=== PATIENT | male | born 1930 | race Caucasian/White ===

== ENCOUNTER 2018-03-05 11:23 | Observation (INO) | payer MEDICARE, BC ==
[~2018-03-05] VITALS: Ht 185.4 cm; Wt 124.4 kg
[~2018-03-05 11:23] MED LIST: ASA81 MG PO; AZOPT10 ML; COMBIGAN EYE DR10 ML OP; FUROSEMIDE40 MG PO; KOMBIGLYZE XR1 EAC2 PO; LEVAQUIN500 MG PO; LOSARTAN POTASS50 MG PO; OMEPRAZOLE40 MG PO; PROVENTIL HFA6.7 GM IH; SUCRALFATE1 GM PO; TRAVATAN 0.004%5 ML OP; XARELTO15 MG PO; Z.0.INDAPAMIDE1.25 M PO; Z.0.METFORMIN HCL500; Z.0.METOPROLOL SUCC2; Z.0.SIMVASTATIN40 MG PO; [UNRECOGNIZED DRUG - OTHER] PO
[2018-03-05 12:16] LABS: INR 2.17; PARTIAL THROMBOPLASTIN TIME 34.4 seconds (23.8-35.5); PROTHROMBIN TIME 22.7 seconds (11.9-14.5)
[2018-03-05 12:23] LABS: ALBUMIN 3.4 g/dL (3.5-5.0); ALBUMIN/GLOBULIN RATIO 0.9 (0.8-2.0); ANION GAP 12.7 mmol/L (8-16); CALCIUM 9.6 mg/dL (8.4-10.2); CREATININE, SERUM 1.8 mg/dL (0.72-1.25); POTASSIUM 3.7 mmol/L (3.5-5.1)
--- NOTE | 2018-03-05 12:23 | Diagnostic Imaging Report ---
EXAMINATION: Chest, CHEST SINGLE (PORTABLE) INDICATION: Chest pain COMPARISON: Portable chest 11/07/2014 FINDINGS: LINES: None. Heart: Normal cardiac silhouette. Vascular: The pulmonary vasculature is within normal limits. Mediastinum: No mediastinal, hilar, or axillary mass or lymphadenopathy. Lungs: No parenchymal mass. No focal consolidation. Pleura: No pleural effusion. No pneumothorax. Bones: No acute osseous abnormality. Degenerative changes of the thoracic spine. Median sternotomy wires. Soft tissues: Normal. Impression: No acute radiographic abnormality. Signed by: Dr. Jaime Richmond M.D. on 03/05/2018 12:19 PM
[2018-03-05] MEDS ORDERED: ASPIRIN 81 MG CHEW TAB PO PRN (12:30)
--- NOTE | 2018-03-05 12:36 | Diagnostic Imaging Report ---
History:Dizziness, slured speech Comparison studies:CT head 03/22/13 Technique: Axial images were obtained from the skull base to the vertex. Coronal and sagittal images reconstructed from the axial data. Intravenous contrast: None Findings: Scalp/skull: No abnormalities. Extra-axial spaces: No masses. No fluid collections. Brain sulci: Mildly prominent. Ventricles: Mild compensatory dilatation. No hydrocephalus. Parenchyma: Describe hypodensities in the supratentorial white matter are small vessel ischemic changes. No masses, hemorrhage, acute or chronic cortical vascular insults. Sellar/suprasellar region: No abnormalities. Craniocervical junction: Patent foramen magnum. No Chiari one malformation. Incidental findings: Atherosclerotic calcifications in the carotid siphons and vertebrals . Impression: No acute abnormalities. Chronic findings: 1. Mild generalized volume loss. 2. Moderate supratentorial white matter small vessel ischemic changes. Signed by: DR Brien Paula M.D. on 03/05/2018 12:32 PM
[2018-03-05 12:43] LABS: CREATINE KINASE MB 1.9 ng/mL (0-5.0); THYROID STIMULATING HORMONE 2.23 uIU/mL (0.350-4.940)
[2018-03-05 12:48] LABS: BILIRUBIN,URINE NEGATIVE (NEGATIVE); CLARITY,URINE CLEAR (CLEAR); COLOR,URINE YELLOW (YELLOW); KETONES,URINE NEGATIVE (NEGATIVE); LEUKOCYTE ESTERASE ,URINE NEGATIVE (NEGATIVE); NITRITE,URINE NEGATIVE (NEGATIVE); PROTEIN,URINE DIPSTICK NEGATIVE (NEGATIVE); URINE UROBILINOGEN 0.2 mg/dL (0.2 - 1)
[2018-03-05 13:02] LABS: BACTERIA,URINE FEW /HPF; EPITHELIAL CELLS,URINE FEW /LPF; RBC,URINE 0-5 /HPF (0-5); WBC,URINE (MAN) 0-5 /HPF (0-5)
[2018-03-05 13:30] LABS: BASOPHILS % 0.4 % (0.0-1.0); EOSINOPHILS # (AUTO) 0.3 (0.0-0.4); EOSINOPHILS % 3.3 % (0.0-6.0); HEMATOCRIT 39.6 % (38.2-49.6); HEMOGLOBIN 13.5 g/dL (14.0-18.0); LYMPHOCYTES # (AUTO) 1.9 (1.0-3.2); LYMPHOCYTES % 24.6 % (18.0-39.1); MEAN CORPUSCULAR HEMOGLOBIN 29.3 pg (28-32); MEAN CORPUSCULAR HGB CONC 34.1 g/dL (31-35); MEAN CORPUSCULAR VOLUME 85.9 fL (81-99); MONOCYTES % 13.1 % (4.4-11.3); NEUTROPHILS # (AUTO) 4.6 (2.1-6.9); NEUTROPHILS % 58.5 % (38.7-80.0); PLATELET COUNT 146 x10e3/uL (140-360); RED BLOOD COUNT 4.61 x10e6/uL (4.3-5.7); RED CELL DISTRIBUTION WIDTH 14.3 % (11.7-14.4)
[2018-03-05] MEDS ORDERED: SODIUM CHLORIDE 0.9% 500ML 500 ML IV ONE (14:00)
[2018-03-05] MEDS ORDERED: ALBUTEROL SULF 0.083% NEB SOLN 3 ML NEB NEB ONE (14:00)
[2018-03-05] MEDS ORDERED: IPRATROPIUM BROMIDE 0.02% 2.5 ML NEB NEB ONE (14:00)
[2018-03-05] MEDS ORDERED: ACETAMINOPHEN 325 MG TAB PO PRN (14:15)
[2018-03-05] MEDS ORDERED: ONDANSETRON HCL 4 MG ORAL DISINTEGRATING TAB PO PRN (14:15)
[2018-03-05] MEDS ORDERED: ALBUTEROL/IPRATROPIUM 3 ML NEB NEB PRN (14:15)
[2018-03-05] MEDS ORDERED: DEXTROSE 50% SYRINGE 50 ML IV PRN (14:15)
[2018-03-05] MEDS ORDERED: ALBUTEROL SULF 0.083% NEB SOLN 3 ML NEB NEB PRN (14:15)
[2018-03-05] MEDS: FAMOTIDINE 20 MG/2 ML VIAL IV SCH (14:44)
--- OUTSIDE RECORDS SUMMARY | 2018-03-05 14:51 | XMS REPORT ---
Author Author [facility] Address Unknown Phone Unavailable Care Team Providers Care Supervisor Pipelines Name Role Phone DORIS BENDER Unavailable Unavailable Problems This patient has no known problems. Allergies, Adverse Reactions, Alerts This patient has no known allergies or adverse reactions. Medications This patient has no known medications. Results Test Description Test Time Test Comments Text Results Atomic Results Result Comments CHEST SINGLE (PORTABLE) [place] [address] Patient Name: NOMAN EPPERSON MR #: [id number] : 1930 Age/Sex: 87/M Req #: [id number] Adm Physician: Ordered by: IVONNE GARCÍA DRAW[employer] Report #: [id number] Location: ER Room/Bed: Procedure: [id number] DX/CHEST SINGLE (PORTABLE) Exam Date: 03/05/18 Exam Time: 1200 REPORT STATUS: Signed EXAMINATION: Chest, CHEST SINGLE (PORTABLE) INDICATION: Chest pain COMPARISON : Portable chest 11/07/2014 FINDINGS: LINES: None. Heart : Normal cardiac silhouette. Vascular: The pulmonary vasculature is within normal limits. Mediastinum: No mediastinal, hilar, or axillary mass or lymphadenopathy. Lungs: No parenchymal mass. No focal consolidation. Pleura: No pleural effusion. No pneumothorax. Bones: No acute osseous abnormality. Degenerative changes of the thoracic spine. Median sternotomy wires. Soft tissues: Normal. Impression: No acute radiographic abnormality. Signed by: Dr. Roman Dominguez M.D. on 2017 12:19 PM Dictated By: ROMAN DOMINGUEZ MD 18 Transcribed By: MICHELLE on 03/05/181218 COPY TO: IVONNE GARCÍA NP CT BRAIN WO [place] [address] Patient Name: NOMAN EPPERSON MR #: [id number] : 1930 Age/Sex: 87/M Req #: [id number] Adm Physician: Ordered by: IVONNE GARCÍA NP Report #: [id number] Location: ER Room/Bed: Procedure: [id number] CT/CT BRAIN WO Exam Date: 03/05/18 Exam Time: 1158 REPORT STATUS: Signed History:Dizziness, slured speech Comparison studies:CT head 03/22/13 Technique: Axial images were obtained from the skull base to the vertex. Coronal and sagittal images reconstructed from the axial data. Intravenous contrast: None Findings: Scalp/skull: No abnormalities. Extra-axial spaces: No masses. No fluid collections. Brain sulci: Mildly prominent. Ventricles: Mild compensatory dilatation. No hydrocephalus. Parenchyma: Describe hypodensities in the supratentorial white matter are small vessel ischemic changes. No masses, hemorrhage, acute or chronic cortical vascular insults. Sellar/ suprasellar region: No abnormalities. Craniocervical junction: Patent foramen magnum. No Chiari one malformation. Incidental findings: Atherosclerotic calcifications in the carotid siphons and vertebrals . Impression: No acute abnormalities. Chronic findings: 1. Mild generalized volume loss. 2. Moderate supratentorial white matter small vessel ischemic changes. Signed by: DR Brien Paula M.D. on 2017 12:32 PM Dictated By: BRIEN HILL MD 1232 Transcribed By: MICHELLE on 03/05/18 1232 COPY TO: IVONNE GARCÍA NP
[2018-03-05] MEDS ORDERED: BRINZOLAMIDE 1% OPTH SUSP 10 ML BTL OP SCH (17:00)
[2018-03-05] MEDS ORDERED: BRIMONIDINE/TIMOLOL (OPTH SOLN 5 ML DRPETTE OP SCH (17:00)
[2018-03-05] MEDS: INSULIN REGULAR, HUMAN 100 UNIT/1 ML 3ML VIAL SQ SCH ×2 (17:06→21:31)
--- NOTE | 2018-03-05 17:21 | History and Physical ---
CLINICAL HISTORY: This is an 87-year-old white man seen in the emergency room at [facility] because of dizziness and slurring of speech. This patient has multiple medical problems and is known to our service from previous evaluations by Dr. Freddie Vale. He is known to have coronary artery disease, diabetes, glaucoma and hypertension. He is status post coronary artery bypass surgery. He was seen in 2014 because of chest pains but elected to be discharged to follow further on outpatient basis. There is history of atrial fibrillation. He was at [employer] today when he sat down. He started having burning in his eyes, left greater than right. He got up and felt dizzy, spinning sensation. Lasted for 5 minutes. He had trouble talking but says he did not have the wrong words come out of his mouth. He felt better but was brought to the emergency room where he was evaluated by the emergency room physician and admitted. Workup thus far has been unrevealing with a CT scan of the head being negative. Chest x-ray was negative. Electrolytes were normal. BUN was 33, creatinine 1.8, albumin 3.4, BNP 282. Urinalysis showed 1+ glucose. INR was 2.1. Earlier in the week, he apparently had some shortness of breath. He was seen by Dr. Vale on 02/22/2018. 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 FAMILY HISTORY: Father at 67 post amputation, peripheral vascular disease and had myocardial infarction. Brother had Wilms tumor. PERSONAL AND SOCIAL HISTORY: Denies drinking, smoking. ALLERGIES: NONE KNOWN. REVIEW OF SYSTEMS: Noncontributory. PHYSICAL EXAMINATION: He is elderly, alert, coherent, appears to be comfortable, in no acute distress. CARDIAC: Jugular veins were not distended. S1 and S2 were regular. There was a 2/6 systolic murmur. LUNGS: Clear. ABDOMEN: Soft. Bowel sounds are present. EXTREMITIES: No cyanosis, clubbing or edema. IMPRESSION 1. Dizziness upon standing with vertigo. Rule out orthostatic hypotension. Rule out inner ear disease as well as posterior cerebellar issues. 2. History of atrial fibrillation. 3. History of coronary artery disease, status post coronary artery bypass surgery in 2007. 4. Hypertension. 5. Diabetes. 6. Glaucoma. 7. History of coronary stenting. 8. History of indigestion. 9. Multiple eyedrops. RECOMMENDATIONS: Monitoring. Check orthostatic vital signs. Withhold diuretics for the time being. Neurology consultation. CT scan or MRI scan as needed. Job#: [id number]
[2018-03-05 17:47] VITALS: BP 139/61
[2018-03-05] MEDS: RIVAROXABAN 15 MG TABLET PO SCH (18:11)
[2018-03-05 18:32] VITALS: BP 139/61
[2018-03-05] MEDS ORDERED: CO Q-10100 MG PO (18:39)
[2018-03-05] MEDS ORDERED: NITROSTAT0.4 MG SL (18:39)
[2018-03-05] MEDS ORDERED: NITROSTAT0.6 MG (18:39)
[2018-03-05] MEDS ORDERED: TAMSULOSIN HCL0.4 MG PO (18:39)
[2018-03-05 20:00] VITALS: BP 122/62
[2018-03-05 22:53] VITALS: BP 122/62
[2018-03-06] VITALS (11 sets, daily range): BP systolic 93–158; BP diastolic 51–75
[2018-03-06 00:50] LABS: CREATINE KINASE MB 1.8 ng/mL (0-5.0)
[2018-03-06] MEDS: FAMOTIDINE 20 MG/2 ML VIAL IV SCH (06:05)
[2018-03-06 07:24] LABS: BASOPHILS % 0.5 % (0.0-1.0); EOSINOPHILS # (AUTO) 0.3 (0.0-0.4); EOSINOPHILS % 4.8 % (0.0-6.0); HEMATOCRIT 38.7 % (38.2-49.6); LYMPHOCYTES # (AUTO) 1.7 (1.0-3.2); LYMPHOCYTES % 27.3 % (18.0-39.1); MEAN CORPUSCULAR HGB CONC 33.6 g/dL (31-35); MEAN CORPUSCULAR VOLUME 86.4 fL (81-99); MONOCYTES # (AUTO) 0.8 (0.2-0.8); MONOCYTES % 12.4 % (4.4-11.3); NEUTROPHILS # (AUTO) 3.4 (2.1-6.9); NEUTROPHILS % 54.5 % (38.7-80.0); PLATELET COUNT 137 x10e3/uL (140-360); RED BLOOD COUNT 4.48 x10e6/uL (4.3-5.7); RED CELL DISTRIBUTION WIDTH 14.3 % (11.7-14.4)
[2018-03-06] MEDS: INSULIN REGULAR, HUMAN 100 UNIT/1 ML 3ML VIAL SQ SCH ×4 (07:30→21:00)
[2018-03-06 07:49] LABS: CREATINE KINASE MB 1.5 ng/mL (0-5.0)
[2018-03-06 08:10] LABS: ALBUMIN/GLOBULIN RATIO 0.9 (0.8-2.0); ANION GAP 12.3 mmol/L (8-16); CALCIUM 9.1 mg/dL (8.4-10.2); CHOL/HDL RATIO 3.3 (3.9-4.7); CREATININE, SERUM 1.57 mg/dL (0.72-1.25); POTASSIUM 4.3 mmol/L (3.5-5.1)
[2018-03-06] MEDS ORDERED: SIMVASTATIN 40 MG TAB PO SCH ×2 (09:00→21:00)
[2018-03-06] MEDS ORDERED: TRAVOPROST(OPTH) 2.5 ML BTL OP SCH ×2 (09:00→21:00)
[2018-03-06] MEDS: BRINZOLAMIDE 1% OPTH SUSP 10 ML BTL OP SCH ×2 (09:52→21:00)
[2018-03-06] MEDS: BRIMONIDINE/TIMOLOL (OPTH SOLN 5 ML DRPETTE OP SCH ×2 (09:53→21:00)
--- NOTE | 2018-03-06 14:45 | Diagnostic Imaging Report ---
Examination: MRA HEAD WITHOUT CONTRAST History: TIA. Weakness. Dizziness. Comparison studies: None Technique: 3-D [id number] MR angiogram of the intracranial circulation was obtained. MIP images of the arteries were isolated into anterior and posterior intracranial circulations, 180 degree projections. Sagittal and coronal MPR images, and axial source images are available for evaluation. Findings: Internal carotid arteries: Patent. Anterior cerebral arteries: Patent A1 segments. Middle cerebral arteries: Patent M1 segment. Vertebrobasilar circulation: Patent. Posterior cerebral arteries: Patent bilateral 1 and P2 segments. Anatomical variants: Anterior communicating arteries: Patent. Posterior communicating arteries: Patent on the right. Hypoplastic or absent on the left. Vertebral arteries:Codominant. IMPRESSION: No intracranial arterial stenosis or occlusion or vascular malformation. Signed by: Dr. Sandra Bauer M.D. on 03/06/2018 2:41 PM
[2018-03-06] MEDS ORDERED: JANUMET 50-1,01 EACH PO (15:17)
--- NOTE | 2018-03-06 15:22 | Diagnostic Imaging Report ---
Examination: MRI BRAIN WITHOUT CONTRAST History: TIA. Weakness. Dizziness. Comparison studies: Head CT performed March 05, 2018. Technique: Sagittal T2; axial DWI, FLAIR, GRE or SWI, T1, Coronal FLAIR. Intravenous contrast: None Findings: Motion artifact limits and poor image quality evaluation. Scalp: No abnormal signal. No masses. Bone marrow: Normal in signal intensity. Brain volume: Mild volume loss. Ventricles: No hydrocephalus. Extra-axial spaces: No abnormalities. Parenchyma: There are patchy and confluent areas of T2/FLAIR hyperintensity in the periventricular and subcortical white matter, nonspecific. No masses, hemorrhage, or acute vascular insults. Suprasellar and sellar region: No abnormalities. Craniocervical junction: No abnormalities. The foramen magnum is patent. No Chiari malformations. Vessels: Normal flow-voids in the arteries and sinuses. IMPRESSION: 1. Despite limitation, no acute intracranial abnormalities. 2. Moderate chronic microvascular ischemic change. 3. Mild volume loss. Signed by: Dr. Sandra Bauer M.D. on 03/06/2018 3:19 PM
[2018-03-06] MEDS ORDERED: NITROGLYCERIN 0.4 MG SUBL SL SCH (15:30)
[2018-03-06] MEDS ORDERED: INDAPAMIDE 1.25 MG PO SCH (16:00)
[2018-03-06] MEDS ORDERED: MULTIVIT PO SCH (16:00)
[2018-03-06] MEDS ORDERED: NON-FORMULARY MEDICATION (Sitagliptin Phos/Metformin Hcl (Janumet 50-1,000 Mg Tablet) 1 TA PO SCH (16:00)
[2018-03-06] MEDS ORDERED: NON-FORMULARY MEDICATION (Losartan Potassium 50 MG) PO SCH (16:00)
[2018-03-06] MEDS ORDERED: IRON PO SCH (16:00)
[2018-03-06] MEDS ORDERED: [UNRECOGNIZED DRUG - OTHER] PO SCH (16:00)
[2018-03-06] MEDS: FAMOTIDINE 20 MG TAB PO SCH (16:49)
[2018-03-06] MEDS: RIVAROXABAN 15 MG TABLET PO SCH (16:50)
[2018-03-06] MEDS: INDAPAMIDE 2.5 MG TAB PO SCH (17:00)
[2018-03-06] MEDS: LOSARTAN POTASSIUM 25 MG TAB PO SCH (17:06)
--- NOTE | 2018-03-06 17:19 | Consultation ---
DATE OF CONSULTATION: March 06, 2018, at 4 o'clock in the evening. NEUROLOGICAL CONSULTATION ATTENDING PHYSICIAN: Freddie Vale MD REASON FOR CONSULTATION: Syncopal spell. This is an 87-year-old male who apparently was in [place] when he started feeling a little weak. Then he stood up and felt weak, dizzy and clammy. They went to a room, and they checked his blood pressure. Apparently, it was 130/80. Apparently, he was having a little trouble with his speech. He denies any headache. Denies any visual disturbance. No chest pain. No palpitations. No focal paresthesia. No focal weakness. The patient denies any previous episodes like this in the past. PAST HISTORY: Hypertension, diabetes mellitus, coronary artery disease, atrial fibrillation, glaucoma. HOME MEDICATIONS 1. Timolol drops. 2. Furosemide 40 mg a day. 3. Losartan. 4. Potassium 15 one tablet daily. 5. Nitroglycerin. 6. Simvastatin 40 mg. 7. Flomax. ALLERGIES: NONE KNOWN. SOCIAL HISTORY: He never smoked. He never drank. FAMILY HISTORY: Vascular disease. Coronary disease. SURGERIES: He had 4 coronary bypass 8 years ago, squamous cell carcinoma and appendectomy. REVIEW OF SYSTEMS: All 12 steps negative except for what is described above. GENERAL PHYSICAL EXAMINATION VITAL SIGNS: Blood pressure 136/75, pulse 50, temperature 95.9. LUNGS: Clear to auscultation. HEART: Regular sinus rhythm. No murmur. ABDOMEN: Soft and nontender. No organomegaly. MUSCULOSKELETAL: Lower extremities have no edema, no cyanosis, no clubbing. NEUROLOGIC EXAMINATION: He is alert and oriented times 3. Speech is clear. No dysarthria or dysphagia. CRANIAL NERVES: Pupils are both equal and reactive. The extraocular movements are full. Visual salgado were normal. No facial weakness. Tongue protrudes in the midline. MOTOR POWER: Both upper extremities have no evidence of focal weakness in either proximal or distal muscles. DEEP TENDON REFLEXES: Triceps, biceps and radials are 1+, knee jerks 1+, ankle jerks absent bilaterally. Plantar stimulation is down bilaterally. COORDINATION: [id number] is normal. HEAD: Normocephalic. NECK: Supple. Carotid pulsations are present bilaterally. There are no bruits. GAIT: He has been walking with physical therapy. There is no evidence to suspect positional dizziness. LABS: CBC is all normal. Platelets are normal. Chemistry: Sodium, potassium and chloride are normal. BUN is 28, high. Creatinine is 1.57. Estimated GFR is 42. Glucose 146. Liver enzymes are all normal. Urinalysis is negative. MRI of the brain shows no acute pathology. No acute ischemia or hemorrhagic lesion. Chronic small vessel disease is seen bilaterally. MRA of the head shows no evidence of blockage. Carotid Doppler shows no evidence of flow impairment. IMPRESSION 1. Episode of presyncope, possible vasovagal reaction. 2. Rule out orthostatic hypotension. 3. Coronary artery disease. 4. Hypertension. 5. Diabetes mellitus. 6. Coronary stenting. RECOMMENDATIONS: Orthostatic blood pressures 3 times a day. Continue ambulation with physical therapy. No evidence to suspect TIA, either anterior or posterior fossa TIA. No evidence of any blockage of the carotid system or intracranial circulation. We will follow. GLENNA ALEJO MD Job#: [id number]
[2018-03-06] MEDS ORDERED: LEVEMIR100 UNIT/1 SC (20:23)
[2018-03-06] MEDS ORDERED: INSULIN DETEMIR 100 UNIT/ML PEN SQ SCH (21:00)
[2018-03-06] MEDS: TAMSULOSIN HCL 0.4 MG CAP PO SCH (21:34)
[2018-03-07] VITALS (8 sets, daily range): BP systolic 96–131; BP diastolic 52–61
[2018-03-07] MEDS ORDERED: SITAGLIPTIN 100 MG TAB PO SCH (08:00)
[2018-03-07] MEDS ORDERED: METFORMIN HCL 500 MG TAB PO SCH (08:00)
[2018-03-07] MEDS: LOSARTAN POTASSIUM 25 MG TAB PO SCH (08:44)
[2018-03-07] MEDS: FAMOTIDINE 20 MG TAB PO SCH (08:44)
[2018-03-07] MEDS: TAMSULOSIN HCL 0.4 MG CAP PO SCH (08:44)
[2018-03-07] MEDS: INDAPAMIDE 2.5 MG TAB PO SCH (08:45)
[2018-03-07] MEDS: BRINZOLAMIDE 1% OPTH SUSP 10 ML BTL OP SCH (08:50)
[2018-03-07] MEDS: BRIMONIDINE/TIMOLOL (OPTH SOLN 5 ML DRPETTE OP SCH (08:51)
[2018-03-07] MEDS ORDERED: MULTIVITAMINS/MINERALS TAB PO SCH (09:00)
[2018-03-07] MEDS: INSULIN REGULAR, HUMAN 100 UNIT/1 ML 3ML VIAL SQ SCH (09:10)
--- NOTE | 2018-03-07 11:11 | Discharge Summary ---
Mr. 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 HOSPITAL COURSE: The patient's initial evaluation suggested possible dehydration, possible orthostasis, possible TIA. He had extensive workup including CT and MRI of brain, which were relatively unremarkable. He was monitored on telemetry for history of intermittent atrial fibrillation, and no significant pauses were found. His glucose was 142 to 176. Troponins were normal. His Xarelto had been erroneously reduced to 15 mg daily, and his furosemide was withheld. Today, the patient is comfortable and feeling better. He wears 2 hearing aids. His creatinine is 1.57. He is discharged to home to reduce his furosemide to 20 mg daily, to be sure to eat and drink adequately. He will resume his Xarelto 20 mg daily without aspirin supplementation as it is contraindicated. He will check home blood pressures and follow up with me in 2 weeks. He will see his other doctors on a regular basis. DISCHARGE DIAGNOSES 1. Vertigo, etiology not clear. 2. Hypertension. 3. Diabetes. 4. Coronary disease. 5. Aortic stenosis, moderately severe without symptoms. DANNI ANGEL MD Job#: [id number]
== END 2018-03-07 13:28 | disposition home or self-care (01) ==
LOC: ER 11:23 → ERHOLD 14:48 → INTOOBSV 14:48 → MED/SURG 17:14
PROVIDERS: ADMIT Internal Medicine Cardiovascular Disease; ATTEND Internal Medicine Cardiovascular Disease
DX: R42 Dizziness and giddiness (principal); I25.10 Atherosclerotic heart disease of native coronary artery without angina pectoris; E11.8 Type 2 diabetes mellitus with unspecified complications; I35.0 Nonrheumatic aortic (valve) stenosis; I10 Essential (primary) hypertension; I95.9 Hypotension, unspecified; Z79.01 Long term (current) use of anticoagulants; I48.91 Unspecified atrial fibrillation; R55 Syncope and collapse; Z95.1 Presence of aortocoronary bypass graft; Z95.5 Presence of coronary angioplasty implant and graft
CPT/HCPCS: 36415 ×3; 70450; 70544; 70551; 71045; 80053 ×2; 80061; 81001; 82550 ×2; 82553 ×2; 82948 ×3; 83735; 83880; 84443; 84484 ×2; 85025 ×2; 85610; 85730; 87086; 87400; 93005 ×2; 93306; 93880; 97139; 99284; G0378 ×3; J7040

== ENCOUNTER 2018-07-25 14:32 | Emergency (ER) | payer MEDICARE, BC ==
[~2018-07-25] VITALS: Ht 185.4 cm; Wt 99.8 kg
[~2018-07-25 14:32] MED LIST changes: +CO Q-10100 MG PO; +JANUMET 50-1,01 EACH PO; +LEVEMIR100 UNIT/1 SC; +NITROSTAT0.4 MG SL; +NITROSTAT0.6 MG; +TAMSULOSIN HCL0.4 MG PO
[2018-07-25] MEDS ORDERED: KETOROLAC TROMETHAMINE 30 MG/ML VIAL IM STA (14:53)
--- NOTE | 2018-07-25 15:35 | Diagnostic Imaging Report ---
Lumbar Spine Radiographs: 3 views HISTORY: Fell, lower back pain COMPARISON: None available. DISCUSSION: The osseous structures are partially obscured by stool and bowel gas. Five non-rib bearing lumbar vertebral bodies. Straightening of the normal lordosis. No displaced fracture or compression deformity is identified. Disc Spaces: Multilevel degenerative changes, most notably severe at L4-5 and L5-S1. Facets: Multilevel hypertrophic degenerative changes, most notably severe at L5-S1. Other: Extensive scattered atherosclerotic vascular calcifications. IMPRESSION: 1. No acute radiographic abnormality. 2. Multilevel degenerative changes, most notably at L5-S1. 3. Extensive atherosclerosis. 4. 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 Signed by: Dr. Charly Washington D.O., M.M.M. on 07/25/2018 3:31 PM
[2018-07-25 16:17] VITALS: BP 148/88
== END 2018-07-25 16:00 | disposition home or self-care (01) ==
LOC: FSED 14:32
DX: M54.5 Low back pain (principal); S39.012A Strain of muscle, fascia and tendon of lower back, initial encounter; W18.39XA Other fall on same level, initial encounter; Y93.01 Activity, walking, marching and hiking; Y92.008 Other place in unspecified non-institutional (private) residence as the place of occurrence of the external cause; I10 Essential (primary) hypertension; I48.91 Unspecified atrial fibrillation
CPT/HCPCS: 72100; 99283; J1885

== ENCOUNTER 2018-09-26 14:23 | Emergency (ER) | payer MEDICARE, BC ==
[~2018-09-26] VITALS: Ht 185.4 cm; Wt 98.9 kg
--- NOTE | 2018-09-26 16:35 | Diagnostic Imaging Report ---
ADDENDUM #1 Dose modulation, iterative reconstruction, and/or weight based adjustment of the mA/kV was utilized to reduce the radiation dose to as low as reasonably achievable. Signed by: Dr. Garcia Ramirez M.D. on 10/16/2018 1:52 PM ORIGINAL REPORT Exams: Head, maxillofacial and cervical spine CTs without IV contrast History: Trauma, fall hit for head Comparison studies: Brain MRI 03/06/2018, head CT's of and 03/21/2020 Technique: Axial images were obtained to the vertex and maxillofacial region. Coronal and sagittal images reconstructed from the axial data. Intravenous contrast: None Findings: Soft tissues: Mild right superior periorbital soft tissue swelling. Bones: No fractures, blastic or lytic lesions. Brain sulci: Mildly prominent Ventricles: Moderate compensatory dilatation. No hydrocephalus. Parenchyma: Mass, acute hemorrhage or acute or chronic cortical vascular insults. Scattered and mildly confluent hypodensities in the supratentorial white matter are nonspecific most compatible with chronic microvascular ischemic changes. 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 Sellar/suprasellar region: No abnormalities Craniocervical junction: Patent foramen magnum. No Chiari one malformation. Maxillofacial CT: Soft tissues: Right periorbital swelling. No retained hyperdense foreign body. Bones: No fractures or bony abnormalities. Orbits: Globes and lenses are intact. No retrobulbar hematoma. There is a left lens replacements for previous cataract surgery. Paranasal sinuses: Mild mucosal thickening in the left inferior frontal sinus, bilateral anterior ethmoid air cells and in the maxillary sinuses. Cervical spine CT: Fractures: None. Soft tissue injuries: No gross acute abnormalities. Atlantoaxial articulation: Intact. Alignment: Straightened cervical curvature may be positional. No acute subluxations. Minimal anterolisthesis of C4 on C5 is most likely degenerative in etiology. Cervicomedullary junction: No abnormalities. Patent foramen magnum. Soft tissues: No abnormalities. Vertebrae: No fractures, infection or neoplasm. Degenerative changes: Moderately degenerated C5-C6 and C6-C7 discs with disc osteophyte complexes which indent the thecal sac and result in mild canal stenosis at C5-C6. Multilevel uncovertebral and facet arthrosis result in multilevel foraminal stenosis (mild left at C2-C3, moderate left at C3-C4, moderate right at C4-C5, moderate bilaterally at C5-C6 and at C6-C7). Incidental findings: Scattered calcified atherosclerosis with calcified plaque at the carotid bulbs as well as within the carotid siphons and intradural vertebral arteries. IMPRESSION: Head CT: 1. Right periorbital soft tissue swelling 2. No fracture or acute intracranial abnormalities. 3. Mild to moderate general is volume loss, moderate chronic microvascular ischemic changes and chronic right cerebellar lacunar infarct are unchanged. Maxillofacial CT: 1. Right periorbital soft tissue swelling. 2. No maxillofacial fracture. Cervical spine: 1. No cervical spine fracture or acute subluxation. 2. Multilevel degenerative changes as described. 3. Please note, cannot evaluate ligament, vascular spinal cord abnormalities on the basis of this exam. Signed by: Dr. Garcia Ramirez M.D. on 09/26/2018 4:32 PM
[2018-09-26 17:07] VITALS: BP 146/68
== END 2018-09-26 17:08 | disposition home or self-care (01) ==
LOC: FSED 14:23
DX: B02.9 Zoster without complications (principal); S00.83XA Contusion of other part of head, initial encounter; W18.39XA Other fall on same level, initial encounter; E11.9 Type 2 diabetes mellitus without complications; I25.10 Atherosclerotic heart disease of native coronary artery without angina pectoris; H40.9 Unspecified glaucoma; Z95.1 Presence of aortocoronary bypass graft
CPT/HCPCS: 70450; 70486; 72125; 99283

== ENCOUNTER 2019-01-26 23:56 | Observation (INO) | payer MEDICARE, BC ==
[~2019-01-26] VITALS: Ht 182.9 cm; Wt 96.2 kg
[~2019-01-26 23:56] MED LIST changes: -AZOPT10 ML; +AZOPT10 ML OS; -COMBIGAN EYE DR10 ML OP; +COMBIGAN EYE DR10 ML OU; -TRAVATAN 0.004%5 ML OP; +TRAVATAN 0.004%5 ML OU
--- OUTSIDE RECORDS SUMMARY | 2019-01-27 | XMS REPORT | Summary of Care ---
Author Author [facility] Organization [facility] Address Unknown Phone Unavailable Encounter AMBIKA Domingo(MENDOZA) [id number] Date(s): 01/11/19 - 01/13/19 [facility] [address] [employer] provided by [facility] [place] [address]- Discharge Disposition: Home or Self Care Attending Physician: Vernon Arredondo MD Admitting Physician: Vernon Arredondo MD Referring Physician: Vernon Arredondo MD Vital Signs 1 2 3 Most recent to oldest [Reference Range]: 182.88 cm (01/11/19 5:45 AM) Height 98.4 DegF (01/12/19 11:58 PM) 98.3 DegF (01/12/19 9:00 PM) 97.0 DegF (01/12/19 3:59 PM) Temperature Oral [96.4-99.1 DegF] 123/65 mmHg (01/13/19 1:00 PM) 126/61 mmHg (01/13/19 12:00 PM) 109/58 mmHg (01/13/19 11:00 AM) Blood Pressure [90-140/60-90 mmHg] 20 BRMIN (01/13/19 6:00 AM) 18 BRMIN (01/13/19 5:00 AM) 15 BRMIN (01/13/19 3:09 AM) Respiratory Rate [14-20 BRMIN] 108.778 kg (01/13/19 5:54 AM) 100.455 kg (01/11/19 5:45 AM) Weight 30.04 m2 (01/11/19 5:45 AM) Body Mass Index Problem List Condition Effective Dates Status Health Status Informant 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) Diabetes(Confirmed) Resolved GERD - Active Gastro-esophageal reflux disease(Confirmed) HTN Resolved (hypertension)(Confi rmed) Skin cancer of Resolved nose(Confirmed) 1open bypass surgery Allergies, Adverse Reactions, Alerts Substance Reaction Severity Status NKDA Active Medications acetaminophen 1,000 mg, 100 mL, Route: IVPB, Drug form: INJ, ONCE, Dosing Weight 100.455, kg, PRN Pain Score 1-3, Start date: 01/11/19 8:33:00 STOPPER SETTER Notes: Infuse over 15 minutesDo not exceed 4gm/day of acetaminophen MEDICAT ION WASTE Product Size: 1000 mgProduct Wasted: ___ mg Start Date: 01/11/19 Stop Date: 01/11/19 Status: Completed allopurinol 100 mg oral tablet 50 mg=0.5 tab, PO, Daily, # 30 tab, 2 Refill(s) Start Date: 01/13/19 Status: Ordered calcium gluconate + Sodium Chloride 0.9% IV 70 mL 3 gm, 30 mL, Route: IVPB, PRN, Dosing Weight 108.778, kg, PRN Abnormal Lab Resul t, For NON-ICU Patients Only., Start date: 01/13/19 7:16:00 STOPPER SETTER, Duration: 30 da y, Stop date: 02/12/19 8:15:00 CDT Notes: WASTE: F/P - Sink; E - Municipal Trash Bin Start Date: 01/13/19 Stop Date: 01/13/19 Status: Discontinued calcium gluconate + Sodium Chloride 0.9% IV 80 mL 2 gm, 20 mL, Route: IVPB, PRN, Dosing Weight 108.778, kg, PRN Abnormal Lab Resul t, For NON-ICU Patients Only., Start date: 01/13/19 7:16:00 STOPPER SETTER, Duration: 30 da y, Stop date: 02/12/19 8:15:00 CDT Notes: WASTE: F/P - Sink; E - Municipal Trash Bin Start Date: 01/13/19 Stop Date: 01/13/19 Status: Discontinued ceFAZolin (SCIP) + sterile water 10 mL 1 gm, Route: IVPB, Q8H, Dosing Weight 100.455, kg, Start date: 01/11/19 16:00:00 STOPPER SETTER, Duration: 1 doses or times, Stop date: 01/11/19 16:00:00 STOPPER SETTER, ABX Indicati on: Surgical Prophylaxis Notes: (Same As: Ancef, Kefzol) MEDICATION WASTE Product Size: 1000 mgP roduct Wasted: ___ mg Start Date: 01/11/19 Stop Date: 01/11/19 Status: Completed Dextrose 50% Syringe 12.5 gm, 25 mL, Route: IVP, Drug Form: INJ, Dosing Weight 100.455, kg, PRN, PRN Blood Glucose Results, Start date: 01/12/19 12:43:00 STOPPER SETTER, Duration: 30 day, Stop date: 02/11/19 13:42:00 CDT Start Date: 01/12/19 Stop Date: 01/13/19 Status: Discontinued Dextrose 50% Syringe 25 gm, 50 mL, Route: IVP, Drug Form: INJ, Dosing Weight 100.455, kg, PRN, PRN Bl ood Glucose Results, Start date: 01/12/19 12:43:00 STOPPER SETTER, Duration: 30 day, Stop d ate: 02/11/19 13:42:00 CDT Start Date: 01/12/19 Stop Date: 01/13/19 Status: Discontinued docusate 100 mg, 1 cap, Route: PO, Drug form: CAP, Q12H, Dosing Weight 100.455, kg, Start date: 01/11/19 9:00:00 STOPPER SETTER, Duration: 30 day, Stop date: 02/09/19 21:00:00 CDT Notes: (Same as: Colace) (Do Not Crush) Start Date: 01/11/19 Stop Date: 01/13/19 Status: Discontinued Exparel 20 mL, Route: InFILtration(local), Drug Form: INJ, Dosing Weight 98.182, kg, ONC ALL, transmission and coordination engineer to cath lab manager, Start date: 01/11/19 6:00:00 STOPPER SETTER, Duration: 1 day, Sto p date: 01/12/19 5:59:00 STOPPER SETTER Notes: (Same as: Exparel) NOT FOR IV use Postoperative analgesia: Infi ltration (local): Dose is based on surgical site and volume required to cover th e area (in general, the maximum total dose is 266 mg).Bunionectomy: 7 mL into th e tissues surrounding the osteotomy and 1 mL into the subcutaneous tissue of the surgical site (total dose=8 mL [106 mg])Hemorrhoidectomy: 30 mL (20 mL vial dil uted with 10 mL NS) divided and administered as 6 injections of 5 mL each (total dose=30 mL [266 mg]) Start Date: 01/11/19 Stop Date: 01/13/19 Status: Discontinued glucagon 1 mg, Route: IM, Drug form: PDR/INJ, PRN, Dosing Weight 100.455, kg, PRN Blood G lucose Results, Start date: 01/12/19 12:43:00 STOPPER SETTER, Duration: 30 day, Stop date: 02/11/19 13:42:00 CDT Start Date: 01/12/19 Stop Date: 01/13/19 Status: Discontinued insulin glargine 53 unit, 0.53 mL, Route: SUB-Q, Drug form: SOLN, Bedtime, Start date: 01/11/19 2 1:00:00 STOPPER SETTER, Duration: 30 day, Stop date: 02/09/19 21:00:00 CDT Notes: Same as: Lantus)Do not hold insulin without contacting prescriberWASTE: F /P - Black; E - [employer] Trash Bin Start Date: 01/11/19 Stop Date: 01/13/19 Status: Discontinued Insulin regular 2 unit, 0.02 mL, Route: SUB-Q, Drug form: SOLN, TID-Before Meals, Dosing Weight 100.455, kg, PRN Blood Glucose Results, Start date: 01/12/19 12:43:00 STOPPER SETTER, Durat ion: 30 day, Stop date: 02/11/19 12:42:00 CDT Notes: (Same as: Humulin R) Roll in palms of hands gently; Do not shake vigorou sly. "single patient use only"(Restricted to patients requiring a dose > 60 units)WASTE: F/P - Black; E - [employer] Trash Bin Stable for 28 days at room temperatureExpires in days from Date Start Date: 01/12/19 Stop Date: 01/13/19 Status: Discontinued Insulin regular 1 unit, 0.01 mL, Route: SUB-Q, Drug form: SOLN, TID-Before Meals, Dosing Weight 100.455, kg, PRN Blood Glucose Results, Start date: 01/12/19 12:43:00 STOPPER SETTER, Durat ion: 30 day, Stop date: 02/11/19 12:42:00 CDT Notes: (Same as: Humulin R) Roll in palms of hands gently; Do not shake vigorou sly. "single patient use only"(Restricted to patients requiring a dose > 60 units)WASTE: F/P - Black; E - Municipal Trash Bin Stable for 28 days at room temperatureExpires in days from Date Start Date: 01/12/19 Stop Date: 01/13/19 Status: Discontinued Insulin regular 4 unit, 0.04 mL, Route: SUB-Q, Drug form: SOLN, TID-Before Meals, Dosing Weight 100.455, kg, PRN Blood Glucose Results, Start date: 01/12/19 12:43:00 STOPPER SETTER, Durat ion: 30 day, Stop date: 02/11/19 12:42:00 CDT Notes: (Same as: Humulin R) Roll in palms of hands gently; Do not shake vigorou sly. "single patient use only"(Restricted to patients requiring a dose > 60 units)WASTE: F/P - Black; E - Municipal Trash Bin Stable for 28 days at room temperatureExpires in days from Date Start Date: 01/12/19 Stop Date: 01/13/19 Status: Discontinued Insulin regular 3 unit, 0.03 mL, Route: SUB-Q, Drug form: SOLN, TID-Before Meals, Dosing Weight 100.455, kg, PRN Blood Glucose Results, Start date: 01/12/19 12:43:00 STOPPER SETTER, Durat ion: 30 day, Stop date: 02/11/19 12:42:00 CDT Notes: (Same as: Humulin R) Roll in palms of hands gently; Do not shake vigorou sly. "single patient use only"(Restricted to patients requiring a dose > 60 units)WASTE: F/P - Black; E - Municipal Trash Bin Stable for 28 days at room temperatureExpires in days from Date Start Date: 01/12/19 Stop Date: 01/13/19 Status: Discontinued Insulin regular 5 unit, 0.05 mL, Route: SUB-Q, Drug form: SOLN, TID-Before Meals, Dosing Weight 100.455, kg, PRN Blood Glucose Results, Start date: 01/12/19 12:43:00 STOPPER SETTER, Durat ion: 30 day, Stop date: 02/11/19 12:42:00 CDT Notes: (Same as: Humulin R) Roll in palms of hands gently; Do not shake vigorou sly. "single patient use only"(Restricted to patients requiring a dose > 60 units)WASTE: F/P - Black; E - Municipal Trash Bin Stable for 28 days at room temperatureExpires in days from Date Start Date: 01/12/19 Stop Date: 01/13/19 Status: Discontinued Lasix 40 mg oral tablet 40 mg, 1 tab, Route: PO, Drug form: TAB, ONCE, Dosing Weight 108.778, kg, Start date: 01/13/19 9:31:00 STOPPER SETTER, Stop date: 01/13/19 9:31:00 STOPPER SETTER Notes: (Same as: Lasix) May cause GI upset. Give with food or milk. Start Date: 01/13/19 Stop Date: 01/13/19 Status: Completed Lasix 40 mg oral tablet 40 mg=1 tab, PO, Daily, # 90 tab, 1 Refill(s) Start Date: 01/13/19 Status: Ordered Levemir 53 unit, Route: SUB-Q, Bedtime, Dosing Weight 100.455, kg, Start date: 01/11/19 21:00:00 STOPPER SETTER, Duration: 30 day, Stop date: 02/09/19 21:00:00 CDT Start Date: 01/11/19 Stop Date: 01/11/19 Status: Discontinued losartan 50 mg, 1 tab, Route: PO, Drug form: TAB, Daily, Dosing Weight 100.455, kg, Start date: 01/12/19 9:39:00 STOPPER SETTER, Duration: 30 day, Stop date: 02/11/19 9:00:00 CDT Notes: (Same as: Tim) Start Date: 01/12/19 Stop Date: 01/13/19 Status: Discontinued losartan 50 mg oral tablet 50 mg=1 tab, PO, Daily, # 30 tab, 2 Refill(s) Start Date: 01/12/19 Status: Ordered magnesium oxide 800 mg, 2 tab, Route: PO, Drug form: TAB, PRN, Dosing Weight 108.778, kg, PRN Ab normal Lab Result, For NON-ICU Patients Only., Start date: 01/13/19 7:16:00 STOPPER SETTER, Duration: 30 day, Stop date: 02/12/19 8:15:00 CDT Notes: (Same as: Mag-Ox 400)Magnesium oxide [id number] elemental magnesiumDose= ____mg magnesium oxide (___mg elemental magnesium) Start Date: 01/13/19 Stop Date: 01/13/19 Status: Discontinued magnesium sulfate 2 gm, 50 mL, Route: IVPB, Drug form: INJ, PRN, Dosing Weight 108.778, kg, PRN Ab normal Lab Result, For NON-ICU Patients Only., Start date: 01/13/19 7:16:00 STOPPER SETTER, Duration: 30 day, Stop date: 02/12/19 8:15:00 CDT Notes: WASTE: F/P - Sink; E - Municipal Trash Bin Start Date: 01/13/19 Stop Date: 01/13/19 Status: Discontinued magnesium sulfate 1 gm, 100 mL, Route: IVPB, Drug form: INJ, PRN, Dosing Weight 108.778, kg, PRN A bnormal Lab Result, For NON-ICU Patients Only., Start date: 01/13/19 7:16:00 STOPPER SETTER , Duration: 30 day, Stop date: 02/12/19 8:15:00 CDT Notes: WASTE: F/P - Sink; E - Municipal Trash Bin Start Date: 01/13/19 Stop Date: 01/13/19 Status: Discontinued niCARdipine 40 mg in NS 200 mL (Titrate.) IV 40 mg 40 mg, 200 mL, Rate: Titrate, Start Dose: 5 mg/hr, Titration: 2mg every 15 minut es PRN, Goal(s): maintain MAP 75-85 mmHg, Max Dose: 15mg/hr, Route: IV, Dosing W eight 100.455 kg, Total Volume: 200, Start date: 01/11/19 8:33:00 STOPPER SETTER, Duration: 30 day, St... Notes: Same as: CardeneConcentration: (0.2 mg /1 ml ) Start Date: 01/11/19 Stop Date: 01/11/19 Status: Discontinued NIFEdipine 30 mg oral tablet, extended release 30 mg, 1 tab, Route: PO, Drug form: ERTAB, ONCE, Dosing Weight 100.455, kg, Star t date: 01/11/19 13:16:00 STOPPER SETTER, Stop date: 01/11/19 13:16:00 STOPPER SETTER Notes: (Same as: Adalat CC, Procardia XL) Give on empty stomach. Take 1 hour be fore or 2 hours after meal; "Avoid grapefruit and grapefruit juice". Do not cru sh Start Date: 01/11/19 Stop Date: 01/11/19 Status: Completed NIFEdipine 60 mg oral tablet, extended release 60 mg, 1 tab, Route: PO, Drug form: ERTAB, ONCE, Dosing Weight 100.455, kg, Star t date: 01/12/19 0:49:00 STOPPER SETTER, Stop date: 01/12/19 0:49:00 STOPPER SETTER Notes: (Same as: Adalat CC, Procardia XL) Give on empty stomach. Take 1 hour be fore or 2 hours after meal; "Avoid grapefruit and grapefruit juice". Do not cru sh Start Date: 01/12/19 Stop Date: 01/12/19 Status: Completed normal saline 0.9% IV 250 mL 250 mL, Rate: 250 ml/hr, Infuse over: 1 hr, Route: IV, Dosing Weight 100.455 kg, Total Volume: 250, Start date: 01/11/19 14:25:00 STOPPER SETTER, Stop date: 01/26/19 14:56 :00 CDT, 2.27, m2 Start Date: 01/11/19 Stop Date: 01/13/19 Status: Discontinued nystatin topical 100,000 units/g powder 1 appl, Route: TOP, PRN, Drug form: PWDR, PRN For Fungal Prophylaxis, Start date : 01/11/19 12:58:00 STOPPER SETTER, Duration: 30 day, Stop date: 02/10/19 13:57:00 CDT Notes: (Same as:Mycostatin, Nilstat) For external use only. Start Date: 01/11/19 Stop Date: 01/13/19 Status: Discontinued ondansetron 4 mg, 2 mL, Route: IVP, Drug form: INJ, Q8H, Dosing Weight 100.455, kg, PRN Naus ea & Vomiting, Start date: 01/11/19 8:33:00 STOPPER SETTER, Duration: 30 day, Stop date: 02/10/19 8:32:00 CDT Notes: (Same as: Zofran) MEDICATION WASTE Product Size: 4 mgProduct Was fernando: ___ mg Start Date: 01/11/19 Stop Date: 01/13/19 Status: Discontinued Plavix 75 mg, 1 tab, Route: PO, Drug form: TAB, Daily, Dosing Weight 100.455, kg, Start date: 01/12/19 9:00:00 STOPPER SETTER, Duration: 30 day, Stop date: 02/10/19 9:00:00 CDT Notes: (Same As: Plavix) Start Date: 01/12/19 Stop Date: 01/13/19 Status: Discontinued Plavix 75 mg oral tablet 75 mg=1 tab, PO, Daily, # 30 tab, 2 Refill(s) Start Date: 01/12/19 Status: Ordered polyethylene glycol 3350 17 gm, 1 pkt, Route: PO, Drug form: PWDR, Daily, Dosing Weight 100.455, kg, Star t date: 01/11/19 9:00:00 STOPPER SETTER, Duration: 30 day, Stop date: 02/09/19 9:00:00 CDT Notes: Dissolve in 8 oz of water or juice.(Same as: Miralax) Start Date: 01/11/19 Stop Date: 01/13/19 Status: Discontinued potassium chloride 20 mEq, 15 mL, Route: NJ, Drug form: LIQ, PRN, Dosing Weight 108.778, kg, PRN Ab normal Lab Result, For NON-ICU Patients Only, Start date: 01/13/19 7:16:00 STOPPER SETTER, Duration: 30 day, Stop date: 02/12/19 8:15:00 CDT Notes: (Same as: Potassium Chloride) Start Date: 01/13/19 Stop Date: 01/13/19 Status: Discontinued potassium chloride 10 mEq, 50 mL, Route: IVPB, Drug form: INJ, PRN, Dosing Weight 108.778, kg, PRN Abnormal Lab Result, For NON-ICU Patients Only, Start date: 01/13/19 7:16:00 STOPPER SETTER , Duration: 30 day, Stop date: 02/12/19 8:15:00 CDT Notes: (Same as: KCL) Infuse over 2 hours. Start Date: 01/13/19 Stop Date: 01/13/19 Status: Discontinued potassium chloride 20 mEq, 1 tab, Route: PO, Drug form: ERTAB, PRN, Dosing Weight 108.778, kg, PRN Abnormal Lab Result, For NON-ICU Patients Only, Start date: 01/13/19 7:16:00 STOPPER SETTER , Duration: 30 day, Stop date: 02/12/19 8:15:00 CDT Notes: (Same as: K-Dur 20)"Do Not Crush" Give with food and full glass of water For patients unable to swallow tablet, dissolve in one half glass of water. Allo w about 2 minutes for the tablets to disintegrate. Stir before giving to prepare slurry and administer.Please exclude Patients with feeding tube less than 14 [place] (Dobhoff, J-tube etc) and pediatric and patients. Start Date: 01/13/19 Stop Date: 01/13/19 Status: Discontinued potassium phosphate + Sodium Chloride 0.9% IV 250 mL 30 mmol, 10 mL, Route: IVPB, PRN, Dosing Weight 108.778, kg, PRN Abnormal Lab Re sult, For NON-ICU Patients Only., Start date: 01/13/19 7:16:00 STOPPER SETTER, Duration: 30 day, Stop date: 02/12/19 8:15:00 CDT Notes: (Same as: K Phosphate.)Do not infuse phosphorous concurrently in the same line as TPN or IVF that contains calcium. For double lumen central lines, phosp horous may be infused in a separate lumen from TPN. 1 mMol phoshate has 1.47 mE q potassium Infuse over 4 hours Start Date: 01/13/19 Stop Date: 01/13/19 Status: Discontinued potassium phosphate + Sodium Chloride 0.9% IV 250 mL 15 mmol, 5 mL, Route: IVPB, PRN, Dosing Weight 108.778, kg, PRN Abnormal Lab Res ult, For NON-ICU Patients Only., Start date: 01/13/19 7:16:00 STOPPER SETTER, Duration: 30 day, Stop date: 02/12/19 8:15:00 CDT Notes: (Same as: K Phosphate.)Do not infuse phosphorous concurrently in the same line as TPN or IVF that contains calcium. For double lumen central lines, phosp horous may be infused in a separate lumen from TPN. 1 mMol phoshate has 1.47 mE q potassium Infuse over 4 hours Start Date: 01/13/19 Stop Date: 01/13/19 Status: Discontinued potassium phosphate-sodium phosphate 250 mg-280 mg-160 mg oral powder for recons titution 2 pkt, Route: PO, Drug Form: PDR/REC, Dosing Weight 108.778, kg, PRN, PRN Abnorm al Lab Result, For NON-ICU Patients Only, Start date: 01/13/19 7:16:00 STOPPER SETTER, Dura tion: 30 day, Stop date: 02/12/19 8:15:00 CDT Notes: (Same as: Phos-NaK) Each 1.5 gm pkt has 250mg phosphorous. Mix w/2.5oz w ater and stir. Start Date: 01/13/19 Stop Date: 01/13/19 Status: Discontinued predniSONE 30 mg, 3 tab, Route: PO, Drug form: TAB, Daily, Dosing Weight 100.455, kg, Start date: 01/11/19 14:00:00 STOPPER SETTER, Duration: 3 day, Stop date: 01/14/19 9:00:00 CDT Notes: (Same as: PredniSONE) Take with food. Start Date: 01/11/19 Stop Date: 01/13/19 Status: Discontinued predniSONE 20 mg oral tablet 30 mg=1.5 tab, PO, Daily, X 7 day, # 11 tab, 0 Refill(s) Start Date: 01/13/19 Stop Date: 01/20/19 Status: Ordered Protonix 40 mg, 1 tab, Route: PO, Drug form: ECTAB, Before Breakfast, Dosing Weight 100.4 55, kg, Start date: 01/12/19 7:30:00 STOPPER SETTER, Duration: 30 day, Stop date: 02/10/19 7:30:00 CDT Notes: Tablet should not be chewed or crushed.(Same as: Protonix) Start Date: 01/12/19 Stop Date: 01/13/19 Status: Discontinued rivaroxaban 15 mg oral tablet 15 mg=1 tab, PO, QPM, # 30 tab, 3 Refill(s) Start Date: 01/12/19 Status: Ordered Saline Flush 0.9% 10 ml, Route: IVP, Drug Form: INJ, Dosing Weight 100.455, kg, PRN, PRN Line Flus h, Start date: 01/11/19 12:58:00 STOPPER SETTER, Duration: 30 day, Stop date: 02/10/19 13:5 7:00 CDT Notes: (Same as: BD Posiflush) Start Date: 01/11/19 Stop Date: 01/13/19 Status: Discontinued Saline Flush 0.9% 10 ml, Route: IVP, Drug Form: INJ, Dosing Weight 100.455, kg, Q12H, Start date: 01/11/19 21:00:00 STOPPER SETTER, Duration: 30 day, Stop date: 02/10/19 9:00:00 CDT Notes: (Same as: BD Posiflush) Start Date: 01/11/19 Stop Date: 01/13/19 Status: Discontinued Sodium Chloride 0.9% (Bolus) IV 250 mL, 250 ml/hr, Infuse Over: 1 hr, Route: IV, 250, Drug form: INJ, ONCALL, Pr iority: Routine, Dosing Weight 98.182 kg, Start date: 01/11/19 6:00:00 STOPPER SETTER, Dura tion: 1 doses or times Start Date: 01/11/19 Stop Date: 01/11/19 Status: Completed Sodium Chloride 0.9% (titrate) 250 mL 250 mL, Rate: To prime line and flush remaining blood products., Dosing Weight 9 8.182, kg, Route: IV, Total Volume: 250, Start Date: 01/11/19 5:45:00 STOPPER SETTER, Durat ion: 30 day, Stop date: 02/10/19 5:44:00 CDT, Replace Every: 24 hr Start Date: 01/11/19 Stop Date: 01/13/19 Status: Discontinued Sodium Chloride 0.9% IV 750 mL 750 mL, Rate: 75 ml/hr, Infuse over: 10 hr, Route: IV, Dosing Weight 98.182 kg, Total Volume: 750, Start date: 01/11/19 5:45:00 STOPPER SETTER, Duration: 24 hr, Stop date: 01/12/19 5:44:00 STOPPER SETTER, 2.26, m2 Start Date: 01/11/19 Stop Date: 01/11/19 Status: Discontinued sodium phosphate + Sodium Chloride 0.9% IV 250 mL 30 mmol, 10 mL, Route: IVPB, PRN, Dosing Weight 108.778, kg, PRN Abnormal Lab Re sult, For NON-ICU Patients Only., Start date: 01/13/19 7:16:00 STOPPER SETTER, Duration: 30 day, Stop date: 02/12/19 8:15:00 CDT Notes: Infuse over 4 hour. Do not infuse phosphorous concurrently in the same li ne as TPN or IVF that contains calcium. For double lumen central lines, phosphor ous may be infused in a separate lumen from TPN. Start Date: 01/13/19 Stop Date: 01/13/19 Status: Discontinued sodium phosphate + Sodium Chloride 0.9% IV 250 mL 15 mmol, 5 mL, Route: IVPB, PRN, Dosing Weight 108.778, kg, PRN Abnormal Lab Res ult, For NON-ICU Patients Only., Start date: 01/13/19 7:16:00 STOPPER SETTER, Duration: 30 day, Stop date: 02/12/19 8:15:00 CDT Notes: Infuse over 4 hour. Do not infuse phosphorous concurrently in the same li ne as TPN or IVF that contains calcium. For double lumen central lines, phosphor ous may be infused in a separate lumen from TPN. Start Date: 01/13/19 Stop Date: 01/13/19 Status: Discontinued Xarelto 15 mg, 1 tab, Route: PO, Drug form: TAB, QPM, Dosing Weight 100.455, kg, Start d ate: 01/12/19 17:00:00 STOPPER SETTER, Duration: 30 day, Stop date: 02/10/19 17:00:00 CDT Notes: (Same as: Xarelto)Administer with food Start Date: 01/12/19 Stop Date: 01/13/19 Status: Discontinued Results BLOOD BANK RESULTS 1 2 3 Most recent to oldest [Reference Range]: O NEG *Unknown* (01/11/19 5:48 AM) ABO/Rh Negative (01/11/19 5:48 AM) Antibody Scrn Product available (01/11/19 5:45 AM) FFP product Product available (01/11/19 5:45 AM) RBC product ELECTROLYTES 1 2 3 Most recent to oldest [Reference Range]: 141 mEq/L (01/13/19 4:39 AM) 143 mEq/L (01/12/19 1:23 AM) 142 mEq/L (01/11/19 11:11 AM) Sodium Lvl [135-145 mEq/L] 3.5 mEq/L (01/13/19 4:39 AM) 4.0 mEq/L (01/12/19 1:23 AM) 3.6 mEq/L (01/11/19 11:11 AM) Potassium Lvl [3.5-5.1 mEq/L] 110 mEq/L *HI* (01/13/19 4:39 AM) 109 mEq/L (01/12/19 1:23 AM) 107 mEq/L (01/11/19 11:11 AM) Chloride Lvl [95-109 mEq/L] 25 mEq/L (01/13/19 4:39 AM) 26 mEq/L (01/12/19 1:23 AM) 26 mEq/L (01/11/19 11:11 AM) CO2 [24-32 mEq/L] 9.5 mEq/L *LOW* (01/13/19 4:39 AM) 12.0 mEq/L (01/12/19 1:23 AM) 12.6 mEq/L (01/11/19 11:11 AM) AGAP [10.0-20.0 mEq/L] CHEM PANEL 1 2 3 Most recent to oldest [Reference Range]: 1.29 mg/dL (01/13/19 4:39 AM) 1.39 mg/dL (01/12/19 1:23 AM) 1.40 mg/dL (01/11/19 11:11 AM) Creatinine Lvl [0.50-1.40 mg/dL] 49 mL/min/1.73m2 1 *NA* (01/13/19 4:39 AM) 45 mL/min/1.73m2 2 *NA* (01/12/19 1:23 AM) 44 mL/min/1.73m2 3 *NA* (01/11/19 11:11 AM) eGFR 28 mg/dL *HI* (01/13/19 4:39 AM) 25 mg/dL *HI* (01/12/19 1:23 AM) 27 mg/dL *HI* (01/11/19 11:11 AM) BUN [7-22 mg/dL] 18 (01/11/19 5:48 AM) B/C Ratio [6-25] 76 mg/dL (01/13/19 4:39 AM) 218 mg/dL *HI* (01/12/19 1:23 AM) 148 mg/dL *HI* (01/11/19 11:11 AM) Glucose Lvl [70-99 mg/dL] 7.2 mg/dL (01/11/19 11:11 AM) Uric Acid [3.8-8.0 mg/dL] 7.2 g/dL (01/11/19 5:48 AM) Total Protein [6.4-8.4 g/dL] 3.4 g/dL *LOW* (01/11/19 5:48 AM) Albumin Lvl [3.5-5.0 g/dL] 3.8 g/dL (01/11/19 5:48 AM) Globulin [2.7-4.2 g/dL] 0.9 (01/11/19 5:48 AM) A/G Ratio [0.7-1.6] 8.5 mg/dL (01/13/19 4:39 AM) 8.4 mg/dL *LOW* (01/12/19 1:23 AM) 8.7 mg/dL (01/11/19 11:11 AM) Calcium Lvl [8.5-10.5 mg/dL] 2.9 mg/dL (01/13/19 4:39 AM) 2.7 mg/dL (01/12/19 1:23 AM) Phosphorus [2.5-4.5 mg/dL] 2.2 mg/dL (01/13/19 4:39 AM) 2.3 mg/dL (01/12/19 1:23 AM) 2.4 mg/dL (01/11/19 11:11 AM) Magnesium Lvl [1.8-2.4 mg/dL] 28 unit/L (01/11/19 5:48 AM) ALT [0-65 unit/L] 25 unit/L (01/11/19 5:48 AM) AST [0-37 unit/L] 109 unit/L (01/11/19 5:48 AM) Alk Phos [39-136 unit/L] 0.7 mg/dL (01/11/19 5:48 AM) Bili Total [0.2-1.3 mg/dL] 1Result Comment: The eGFR is calculated using the CKD-EPI formula. In most young, healthy individuals the eGFR will be >90 mL/min/1.73m2. The eGFR declines with age. An eGFR of 60-89 may be normal in some populations, particularly the elderly, for whom the CKD-EPI formula has not been extensively validated. Use of the eGFR is not recommended in the following populations: Individuals with unstable creatinine concentrations, including patients and those with serious co-morbid conditions. Patients with extremes in muscle mass or diet. The data above are obtained from the [employer] ( [employer]) which additionally recommends that when the eGFR is used in patients with extremes of body mass index for purposes of drug dosing, the eGFR should be mul tiplied by the estimated BMI. 2Result Comment: The eGFR is calculated using the CKD-EPI formula. In most young, healthy individuals the eGFR will be >90 mL/min/1.73m2. The eGFR declines with age. An eGFR of 60-89 may be normal in some populations, particularly the elderly, for whom the CKD-EPI formula has not been extensively validated. Use of the eGFR is not recommended in the following populations: Individuals with unstable creatinine concentrations, including patients and those with serious co-morbid conditions. Patients with extremes in muscle mass or diet. The data above are obtained from the [employer] ( [employer]) which additionally recommends that when the eGFR is used in patients with extremes of body mass index for purposes of drug dosing, the eGFR should be mul tiplied by the estimated BMI. 3Result Comment: The eGFR is calculated using the CKD-EPI formula. In most young, healthy individuals the eGFR will be >90 mL/min/1.73m2. The eGFR declines with age. An eGFR of 60-89 may be normal in some populations, particularly the elderly, for whom the CKD-EPI formula has not been extensively validated. Use of the eGFR is not recommended in the following populations: Individuals with unstable creatinine concentrations, including patients and those with serious co-morbid conditions. Patients with extremes in muscle mass or diet. The data above are obtained from the National Kidney Disease Education Program ( NKDEP) which additionally recommends that when the eGFR is used in patients with extremes of body mass index for purposes of drug dosing, the eGFR should be mul tiplied by the estimated BMI. CARDIAC ENZYMES 1 2 3 Most recent to oldest [Reference Range]: 1369 pg/mL *HI* (01/11/19 5:48 AM) BNP [<=100 pg/mL] PARATHYROID PROFILE 1 2 3 Most recent to oldest [Reference Range]: 1.13 mMol/L (01/13/19 4:39 AM) 1.10 mMol/L (01/11/19 11:11 AM) Ca Ion WB [1.05-1.25 mMol/L] 1.15 mMol/L (01/13/19 4:39 AM) 1.10 mMol/L (01/11/19 11:11 AM) Ca Norm WB [1.05-1.25 mMol/L] URINE AND STOOL 1 2 3 Most recent to oldest [Reference Range]: Clear (01/12/19 10:36 PM) UA Turbidity [Clear] Yellow *NA* (01/12/19 10:36 PM) UA Color [Yellow] 5.0 (01/12/19 10:36 PM) UA pH [5.0-8.0] 1.027 (01/12/19 10:36 PM) UA Spec Grav [<=1.030] 500 mg/dL *ABN* (01/12/19 10:36 PM) UA Glucose [Negative mg/dL] Negative (01/12/19 10:36 PM) UA Blood [Negative] Negative *NA* (01/12/19 10:36 PM) UA Ketones [Negative] Negative (01/12/19 10:36 PM) UA Protein [Negative] <1.0 mg/dL (01/12/19 10:36 PM) UA Urobilinogen [0.1-1.0 mg/dL] Negative *NA* (01/12/19 10:36 PM) UA Bili [Negative] Small *ABN* (01/12/19 10:36 PM) UA Leuk Est [Negative] Negative (01/12/19 10:36 PM) UA Nitrite [Negative] 3 /HPF (01/12/19 10:36 PM) UA WBC [0-5 /HPF] <1 /HPF (01/12/19 10:36 PM) UA RBC [0-2 /HPF] Occasional /LPF *NA* (01/12/19 10:36 PM) UA Sq Epi [Few /LPF] Few /LPF *NA* (01/12/19 10:36 PM) UA Mucus [None Seen /LPF] HEMATOLOGY 1 2 3 Most recent to oldest [Reference Range]: 8.3 K/CMM (01/13/19 4:39 AM) 5.3 K/CMM (01/12/19 1:23 AM) 6.0 K/CMM (01/11/19 11:11 AM) WBC [3.7-10.4 K/CMM] 3.83 M/CMM *LOW* (01/13/19 4:39 AM) 4.02 M/CMM *LOW* (01/12/19 1:23 AM) 4.11 M/CMM *LOW* (01/11/19 11:11 AM) RBC [4.70-6.10 M/CMM] 10.8 g/dL *LOW* (01/13/19 4:39 AM) 11.5 g/dL *LOW* (01/12/19 1:23 AM) 11.7 g/dL *LOW* (01/11/19 11:11 AM) Hgb [14.0-18.0 g/dL] 32.8 % *LOW* (01/13/19 4:39 AM) 34.3 % *LOW* (01/12/19 1:23 AM) 35.5 % *LOW* (01/11/19 11:11 AM) Hct [42.0-54.0 %] 85.5 fL (01/13/19 4:39 AM) 85.2 fL (01/12/19 1:23 AM) 86.4 fL (01/11/19 11:11 AM) MCV [80.0-94.0 fL] 28.0 pg (01/13/19 4:39 AM) 28.5 pg (01/12/19 1:23 AM) 28.5 pg (01/11/19 11:11 AM) MCH [27.0-31.0 pg] 32.8 g/dL (01/13/19 4:39 AM) 33.4 g/dL (01/12/19 1:23 AM) 33.0 g/dL (01/11/19 11:11 AM) MCHC [32.0-36.0 g/dL] 17.4 % *HI* (01/13/19 4:39 AM) 17.1 % *HI* (01/12/19 1:23 AM) 17.3 % *HI* (01/11/19 11:11 AM) RDW [11.5-14.5 %] 9.5 fL (01/13/19 4:39 AM) 9.3 fL (01/12/19 1:23 AM) 9.3 fL (01/11/19 11:11 AM) MPV [7.4-10.4 fL] 79 K/CMM *LOW* (01/13/19 4:39 AM) 82 K/CMM *LOW* (01/12/19 1:23 AM) 90 K/CMM *LOW* (01/11/19 11:11 AM) Platelet [133-450 K/CMM] 75.5 % *HI* (01/13/19 4:39 AM) 82.3 % *HI* (01/12/19 1:23 AM) 62.0 % (01/11/19 11:11 AM) Segs [45.0-75.0 %] 13.4 % *LOW* (01/13/19 4:39 AM) 10.9 % *LOW* (01/12/19 1:23 AM) 21.3 % (01/11/19 11:11 AM) Lymphocytes [20.0-40.0 %] 10.0 % (01/13/19 4:39 AM) 6.6 % (01/12/19 1:23 AM) 12.1 % *HI* (01/11/19 11:11 AM) Monocytes [2.0-12.0 %] 0.5 % (01/13/19 4:39 AM) 3.8 % (01/11/19 11:11 AM) 4.1 % *HI* (01/11/19 5:48 AM) Eosinophils [0.0-4.0 %] 0.6 % (01/13/19 4:39 AM) 0.2 % (01/12/19 1:23 AM) 0.8 % (01/11/19 11:11 AM) Basophils [0.0-1.0 %] 6.3 K/CMM (01/13/19 4:39 AM) 4.3 K/CMM (01/12/19 1:23 AM) 3.7 K/CMM (01/11/19 11:11 AM) Neutrophils # [1.5-8.1 K/CMM] 1.1 K/CMM (01/13/19 4:39 AM) 0.6 K/CMM *LOW* (01/12/19 1:23 AM) 1.3 K/CMM (01/11/19 11:11 AM) Lymphocytes # [1.0-5.5 K/CMM] 0.8 K/CMM (01/13/19 4:39 AM) 0.3 K/CMM (01/12/19 1:23 AM) 0.7 K/CMM (01/11/19 11:11 AM) Monocytes # [0.0-0.8 K/CMM] 0.2 K/CMM (01/11/19 11:11 AM) 0.2 K/CMM (01/11/19 5:48 AM) Eosinophils # [0.0-0.5 K/CMM] 0.1 K/CMM (01/11/19 5:48 AM) Basophils # [0.0-0.2 K/CMM] 19.7 seconds *HI* (01/13/19 4:39 AM) 15.8 seconds *HI* (01/12/19 1:23 AM) 16.4 seconds *HI* (01/11/19 11:11 AM) PT [12.0-14.7 seconds] 1.71 *HI* (01/13/19 4:39 AM) 1.29 *HI* (01/12/19 1:23 AM) 1.35 *HI* (01/11/19 11:11 AM) INR [0.85-1.17] 35.8 seconds (01/13/19 4:39 AM) 32.5 seconds (01/12/19 1:23 AM) 37.2 seconds *HI* (01/11/19 11:11 AM) PTT [22.9-35.8 seconds] BACTERIAL - SEROLOGY 1 2 3 Most recent to oldest [Reference Range]: Negative (01/13/19 7:27 AM) MRSA by PCR Immunizations No data available for this section Procedures Procedure Date Related Diagnosis Body Site Status Appendectomy Completed Cardiac catheterisation, left heart Completed Cardiac revascularization with bypass Completed anastomosis Carpal tunnel decompression Completed Social History Social History Type Response Smoking Status Never smoker; Exposure to Tobacco Smoke None; Cigarette Smoking Last 365 Days No; Reg Smoking Cessation Counseling No entered on: 01/11/19 Assessment and Plan Extracted from: Title: CCU Progress Note Author: Winter Galloway Date: 01/12/19 Michael PALAFOX 88 year old man with CAD s/p CABG 2007 (Dr. Macdonald) ROCHA to LAD, SVG to L circumflex, balloon angioplasty to ROCHA in 2019 on plavix and ASA, Afib on xerelto, severe ,CKD3, HTN, DM2, glaucoma, referred by Dr. Vale to Dr. Arredondo for TAVR. Neurologic - No concerns. Cardiac #Severe #s/p TAVR - CTA TAVR on 12/27/2018showed asymmetric, calcified leaflet. Depressed LV function with LVEF of 41%. Scattered calcifications along 3 coronary arteries. - PFTs on 12/27/2018 within normal limits - TTE LVEF 35-39%. Moderately dilated right ventricule with mildly reduced function. Both atria moderately dilated. Mitral valve appears thickened but open. Mild to moderate mitral regurgitation. Tricuspid valve moderate regurgitation. RVSP 45-54 mm Hg. Aortic valve thickened with reduced motion and severe stenosis.Pulmonic valve grossly normal.Proximal septal thickening. Mildly dilated ascending aorta. Mean gradient through aorta 48 mm Hg, peak velocity 4.2 m/sec, valve area 0.8 cm2. - s/p TAVR on 01/11/2019 - Pre- and post-TAVR: CO 5.03-> 5.03 l/min, Mean gradient 48.00 -> 3.07 mm Hg, Systolic ejection period: 19.66 -> 19.63 s/min, Valvearea: 0.8 -> 3.30 cm2, Valve flow: 256.15 -> 256.30 ml/sec - Small hematoma in left groin, will continue to monitor; H&H pending - Plavix 75 mg PO QD - Starting Xarelto 15 mg PO QD #CAD s/p CABG #Heart failure with reduced EF - TTE 01/11/2019 - LVEF 35 - 40% - s/p angioplasty on 12/06/2018 - Will continue Plavix 75 mg PO QD - Holding ASA - Holding diuretics as patient euvolemic on exam #AFib - Rate controlled. HR in 50s - EKG pending - Will continue to monitor - Plan to restart home xarelto 20 mg PO QDtomorrow #HTN - Avoiding beta blockers as HR inthe 50s, avoiding ACEi/ARBs due to recent contrast load - Nifedipine 30 mg PO x1, received 60 mg x1 overnight on 01/11 - Starting Losartan 50 mg QD - Will continue to monitor BP and adjust antihypertensive regimen as appropriate Respiratory - No concerns. Saturating well on room air. Hematology #Left groin hematoma - Small hematoma present on L groin post-procedure - Repeat H&H pending - Will continue to monitor for resolution Gastrointestinal - No concerns. - Protonix 40 mg PO QD prophylaxis Infectious - Afebrile, WBC 5.6 - No concerns Renal/ Fluids and Electrolyte #CKD3 - BUN 29, Cr1.62 on admission - Will continue to monitor with daily BMP - Avoid nephrotoxic agents, renally dose meds. Endocrine #DM2 - FSBG 136 - Restarting home levemir 53 U QD - Low dose SSI - Will continue to monitor with regular glucose checks Rheumatologic #Tophaceous Gout - Left fourth toe, right third toe - Patient reports pain well controlled - Starting on prednisone 30 mg PO QD x 3 days, will monitor for response and extend/taper therapy as needed - Urate level pending - Will plan to discharge on allopurinol Social - No concerns Diet: Cardiac Diet DVT ppx: SCDs GI ppx: Protonix 40 mg PO QD Code: Full Dispo:Pending discharge tomorrow. Winter Galloway MD PGY-1 Internal Medicine Extracted from: Title: Clinical Document Author: Tahmina Gomez MD Date: 01/11/19 SURGEONCo-SurgeonDATE OF OPERATION 01/11/2019 David Gomez M.D. Kenny Arredondo M.D. PREOPERATIVE DIAGNOSIS:1. Severe Aortic Stenosis 2. Hypertension 3. Hyperlipidemia 4. Syncope 5. CADs/p PCI 2004 6. s/p CABG4v 2007 7. Congestive heart failure, systolic, chronic NYHA class III 8. STS 9.8% (high risk) POSTOPERATIVE DIAGNOSIS:same NAME OF PROCEDURE:1. Transcatheter aortic valve replacement (TAVR) utilizing a #26 Alcantara Hemal S3 pericardial valve via right groin 2.Percutaneous access of the right and left common femoral artery 3.Percutaneous access of the right and left common femoral vein 4.Serial dilatation of the right common femoral artery for the 14 [place] introducer FINDINGS AT THE TIME OF SURGERY: 1. Severe calcifications in the aortic valve. 2. The 14 [place] delivery system was passed with no difficulty through the right common iliac artery into the left ventricular outflow tract for deployment. 3. Post replacement TTE revealed no paravalvular leak. 4. Post deployment aortogram revealed no issues with access vessels. INDICATIONS: The risk and benefits were explained to the patient. She understands these risks and agrees to proceed with surgical intervention. The patient was seen by myself, Dr. Jose Maria Hayes, and Dr. Arredondo and deemed high risk for conventional AVR. PROCEDURE IN DETAIL: Further details will be dictated by Dr. Arredondo as he was the tectonophysicist. The patient was brought into the cardiac cath lab manager. A time-out procedure was performed which confirmed the patient s name, MRN, and procedure to be performed. The patient was placed in the supine position on the operating table and administered general anesthesia. The chest, abdomen and groins were prepped and draped in the usual sterile manner. Access was obtained in the right common femoral artery, as well as right common femoral vein. Preclose devices were used (Proglide) at introduction for the device delivery side. Pacing was also placed in the left common femoral vein. Heparin was given intravenously, 1 mg/ml to maintain an ACT > 250 seconds. The right common femoral artery was prepared. Subsequently, test pacing was performed and obtained as expected at 180 beats per minute. An aortic angiogram root shot was performed, noting the optimal angle for deployment of the valve. Subsequently, the #26 mm Alcantara HEMAL S3 transcatheter valve was placed into the sheath system in the RIGHT femoral artery and brought up through the aortic valve and placed in correct position. This was confirmed by the heart valve team. Subsequently, the rapid ventricular pacing was performed, and the valve was deployed in the aortic annulus appropriately. The cordis and sheath were pulled back. Post-placement TTE revealed good placement of the valve with no aortic insufficiency. Subsequently, the sheaths were removed. No issues were noted. All wounds were then closed and sterile dressings were applied. I was present as co surgeon in conjunction with Dr. Arredondo. He will dictate their portions in detail of the procedure. The patient tolerated the procedure well and was taken to the Coronary Care Unit in stable condition. Sponge, needle and instrument counts x2 were correct. I was present for the entire procedure. Tahmina Gomez M.D. Extracted from: Title: CCU History & Physical Author: Winter Galloway Date: 01/11/19 Michael PALAFOX 88 year old man with CAD s/p CABG 2007 (Dr. Macdonald) ROCHA to LAD, SVG to L circumflex, balloon angioplasty to ROCHA in 2019 on plavix and ASA, Afib on xerelto, severe ,CKD3, HTN, DM2, glaucoma, referred by Dr. Vale to Dr. Arredondo for TAVR. Neurologic - No concerns. Cardiac #Severe #s/p TAVR - CTA TAVR on 12/27/2018showed asymmetric, calcified leaflet. Depressed LV function with LVEF of 41%. Scattered calcifications along 3 coronary arteries. - PFTs on 12/27/2018 within normal limits - TTE LVEF 35-39%. Moderately dilated right ventricule with mildly reduced function. Both atria moderately dilated. Mitral valve appears thickened but open. Mild to moderate mitral regurgitation. Tricuspid valve moderate regurgitation. RVSP 45-54 mm Hg. Aortic valve thickened with reduced motion and severe stenosis.Pulmonic valve grossly normal.Proximal septal thickening. Mildly dilated ascending aorta. Mean gradient through aorta 48 mm Hg, peak velocity 4.2 m/sec, valve area 0.8 cm2. - s/p TAVR on 01/11/2019 - Pre- and post-TAVR: CO 5.03-> 5.03 l/min, Mean gradient 48.00 -> 3.07 mm Hg, Systolic ejection period: 19.66 -> 19.63 s/min, Valvearea: 0.8 -> 3.30 cm2, Valve flow: 256.15 -> 256.30 ml/sec - Small hematoma in left groin, will continue to monitor; H&H pending - Plavix 75 mg PO QD #CAD s/p CABG #Heart failure with reduced EF - TTE 01/11/2019 - LVEF 35 - 40% - s/p angioplasty on 12/06/2018 - Will continue Plavix 75 mg PO QD - Holding ASA - Holding diuretics as patient euvolemic on exam #AFib - Rate controlled. HR in 50s - EKG pending - Will continue to monitor - Plan to restart home xarelto 20 mg PO QDtomorrow #HTN - Avoiding beta blockers as HR inthe 50s, avoiding ACEi/ARBs due to recent contrast load - Nifedipine 30 mg PO x1 - Will continue to monitor BP and adjust antihypertensive regimen as appropriate Respiratory - No concerns. Saturating well on room air. Hematology #Left groin hematoma - Small hematoma present on L groin post-procedure - Repeat H&H pending - Will continue to monitor for resolution Gastrointestinal - No concerns. - Protonix 40 mg PO QD prophylaxis Infectious - Afebrile, WBC 5.6 - No concerns Renal/ Fluids and Electrolyte #CKD3 - BUN 29, Cr1.62 on admission - Will continue to monitor with daily BMP - Avoid nephrotoxic agents, renally dose meds. Endocrine #DM2 - FSBG 136 - Restarting home levemir 53 U QD - Low dose SSI - Will continue to monitor with regular glucose checks Rheumatologic #Tophaceous Gout - Left fourth toe, right third toe - Patient reports pain well controlled - Starting on prednisone 30 mg PO QD x 3 days, will monitor for response and extend/taper therapy as needed - Urate level pending - Will plan to discharge on allopurinol Social - No concerns Lines, Tubes, and Drains: 01/11/2019 06:13Peripheral Lines: Antecubital Right 20 gauge Over the needle catheter Diet: NPO DVT ppx: SCDs GI ppx: Protonix 40 mg PO QD Code: Full Dispo: Pending clinical improvement Winter Galloway MD PGY-1 Internal Medicine Extracted from: Title: [facility] Consult H&P * Author: Carlos Manuel Farris JAIRO Date: 01/11/19 Basic Information Source of history: Self. Referral source: Vernon Arredondo MD. History limitation: None. Advance directive: Full code. History of Present Illness HPI: 88 year old man with CAD s/p CABG 2007, balloon angioplasty to ROCHA in 2019 on plavix and ASA, Afib on xerelto, severe , and CKD3, HTN. He underwent elective TAVR via right transfemoral approach. He tolerated the procedure well and was admitted to CCU in stable condition. [facility] consultation was requested for postoperative care. Review of Systems Constitutional: Negative. Eye: Negative. Ear/Nose/Mouth/Throat: Negative. Respiratory: Negative. Cardiovascular: Negative. Gastrointestinal: Negative. Genitourinary: Negative. Hematology/Lymphatics: Negative. Endocrine: Negative. Immunologic: Negative. Musculoskeletal: Negative. Integumentary: Negative. Neurologic: Negative. Psychiatric: Negative. All other systems are negative Health Status Allergies: Allergic Reactions (Selected) Severity Not Documented NKDA- No reactions were documented., Allergies (1) ActiveReaction NKDANone Documented Current medications: (Selected) Inpatient Medications Ordered Exparel: 20 mL, InFILtration(local), ONCALL NIFEdipine 30 mg oral tablet, extended release: 30 mg, 1 tab, PO, ONCE Plavix: 75 mg, 1 tab, PO, Daily Protonix: 40 mg, 1 tab, PO, Before Breakfast Saline Flush 0.9%: 10 ml, IVP, PRN, PRN: Line Flush Saline Flush 0.9%: 10 ml, IVP, Q12H Sodium Chloride 0.9% (titrate) 250 mL: To prime line and flush remaining blood products., IV, Stop: 02/10/19 5:44:00 CDT ceFAZolin (SCIP) + sterile water 10 mL: 1 gm, 200 ml/hr, IVPB, Q8H docusate: 100 mg, 1 cap, PO, Q12H normal saline 0.9% IV 250 mL: 250 ml/hr, IV, Stop: 01/26/19 14:56:00 CDT nystatin topical 100,000 units/g powder: 1 appl, TOP, PRN, PRN: For Fungal Prophylaxis ondansetron: 4 mg, 2 mL, IVP, Q8H, PRN: Nausea & Vomiting polyethylene glycol 3350: 17 gm, 1 pkt, PO, Daily predniSONE: 30 mg, 3 tab, PO, Daily Documented Medications Documented Azopt 1% ophthalmic suspension: one drop, Each Affected Ear, BID, 0 Refill(s) Centrum Silver Men's: PO, ONCE, 0 Refill(s) CoQ10: 100 mg, PO, ONCE, 0 Refill(s) Combigan ophthalmic solution: 1 drp, OPTH, Q12H, 10 mL, 0 Refill(s) Januvia 50 mg oral tablet: 50 mg, 1 tab, PO, Daily, for 90 day, 90 tab, 1 Refill(s) Lasix 40 mg oral tablet: 40 mg, 1 tab, PO, Daily, 30 tab, 0 Refill(s) Levemir 100 units/mL: 53 units, SUB-Q, Daily, 0 Refill(s) Plavix 75 mg oral tablet: 75 mg, 1 tab, PO, Daily, 30 tab, 0 Refill(s) Xarelto 20 mg oral tablet: 20 mg, 1 tab, PO, QPM, 30 tab, 3 Refill(s) aspirin 81 mg tablet, enteric coated: 81 mg, 1 tab, PO, Daily, 90 tab, 3 Refill(s) indapamide 1.25 mg oral tablet: 1.25 mg, 1 tab, PO, QAM, 30 tab simvastatin: tamsulosin 0.4 mg oral capsule: 0.4 mg, 1 cap, PO, Daily, 30 cap, 0 Refill(s) Histories Past Medical History: Active GERD - Gastro-esophageal reflux disease (8523895899) Resolved Acute heart failure (46363982): Resolved. Comments: 02/12/2013 CDT 14:45 CDT - Anna Barrios RN open bypass surgery Coronary artery disease (59544614): Resolved. Diabetes (260849199): Resolved. HTN (hypertension) (7863494451): Resolved. Skin cancer of nose (2222342599): Resolved. Family History: No family history items have been selected or recorded. Procedure history: Appendectomy (207298048). Cardiac catheterisation, left heart (452234648). Cardiac revascularization with bypass anastomosis (074810625). Carpal tunnel decompression (1592442786). Social History Social & Psychosocial Habits Tobacco 01/11/2019 Use: Never smoker Exposure to Tobacco Smoke None Cigarette Smoking Last 365 Days No Reg Smoking Cessation Counseling No . Physical Examination VS/Measurements Vital Signs (last 24 hrs) Last Charted Temp Oral97.8 DegF (JAN 11 06:11) Heart Rate ApicalL 59bpm (JAN 11:30) Resp Rate 14 BRMIN (JAN 11:) OPZ955 mmHg (JAN 11 11:00) DBP62 mmHg (JAN 11:00) YqM742 % (JAN 11:) Ibggpp607.45 kg (JAN 11 05:45) Xtyoau735.88 cm (JAN 11:45) BMI30.04 (JAN 11 05:45) , Measurements from flowsheet : Measurements 01/11/2019 05:46 Heparin Dosing Weight (kg) 86.74 01/11/2019 05:45 Height 182.88 cm Height Collection Method Stated Weight 100.455 kg Dosing Weight Difference Percent 2.315 % Dosing Weight Collection Method Measured Body Surface Area 2.259 m2 Body Mass Index 30.04 m2 General: Alert and oriented, No acute distress. Eye: Pupils are equal, round and reactive to light. HENT: Normocephalic. Neck: Supple, Non-tender, No carotid bruit, No jugular venous distention, No lymphadenopathy. Respiratory: Lungs are clear to auscultation, Respirations are non-labored, Breath sounds are equal, Symmetrical chest wall expansion, No chest wall tenderness. Cardiovascular: Normal rate, No gallop, Good pulses equal in all extremities, Normal peripheral perfusion, No edema. Gastrointestinal: Soft. Genitourinary: No costovertebral angle tenderness. Lymphatics: No lymphadenopathy neck, axilla, groin. Musculoskeletal Normal range of motion. Integumentary: Warm, Dry, Intact. Right groin hematoma Neurologic: Alert, Oriented, Normal sensory, No focal deficits. Cognition and Speech: Speech clear and coherent. Psychiatric: Appropriate mood & affect. Review / Management Results review: Labs (Last four charted values) WBC 6.0(JAN 11)5.6(JAN 11) Hgb L 11.7(JAN 11)L 12.7(JAN 11) Hct L 35.5(JAN 11)L 38.3(JAN 11) Plt L 90(JAN 11)L 100(JAN 11) Na 142(JAN 11)143(JAN 11) K 3.6(JAN 11)4.1(JAN 11) CO2 26(JAN 11)29(JAN 11) Cl 107(JAN 11)106(JAN 11) Cr 1.40(JAN 11)H 1.62(JAN 11) BUN H 27(JAN 11)H 29(JAN 11) Glucose Random H 148(JAN 11)H 141(JAN 11) Mg 2.4(JAN 11)H 2.5(JAN 11) Ca 8.7(JAN 11)9.2(JAN 11) PT H 16.4(JAN 11)H 15.1(JAN 11) INR H 1.35(JAN 11)H 1.21(JAN 11) PTT H 37.2(JAN 11)32.8(JAN 11). Impression and Plan s/p TAVR postoperative care CKD CAD Pulmonary edema Neuro: non focal, denies acute pain cont. to monitor. Cv:HD stable, cont. to monitor and f/u with cardiology POC. Pulm:stable on room air, start VEP, consult PT/OT once bedrest complete. Gi:cont. AHA diet and PPI. Gu: creatinine/lytes stable. Chest xray with pulmonary edema, BNP 1369, consider holding IVF. Heme: H/H stable , right groin hematoma stable, cont. to monitor. ID:afebrile, wbc stable, recieved ancef per SCIP cont. to monitor. Endo:euglycemic. Addendum [facility] Pulmonary/Critical Care Attending by Sylvester, I have seen and examined the patient with [employer] Carlos Manuel Farris, I agree with her Lauri assessment and plan. Julio PALAFOX I have independently examined the patient and reviewed the laboratory and radiologic data. on Patient is doing well after transfemoral TAVR 01/11/2019 Off oxygen, hemodynamicallly stable 22:57 Lungs clear to auscultation bilaterally Regular rate and rhythm normal S1-S2 Continue postoperative care in CCU
--- OUTSIDE RECORDS SUMMARY | 2019-01-27 | XMS REPORT | Summary of Care ---
Author Author [facility] Organization [facility] Address Unknown Phone Unavailable Encounter AMBIKA Domingo(MENDOZA) [id number] Date(s): 12/27/18 - 12/27/[address] [facility] [id number] [employer] provided by [facility] [place] [address]- Discharge Disposition: Home or Self Care Attending Physician: Vernon Arredondo MD Referring Physician: Vernon Arredondo MD Vital Signs Most recent to 1 2 oldest [Reference Range]: Height 185.42 cm (12/27/18 12:51 PM) Blood Pressure 131/79 mmHg 140/83 mmHg [90-140/60-90 mmHg] (12/27/18 3:43 PM) (12/27/18 1:18 PM) Peripheral Pulse 74 bpm 68 bpm Rate [60-100 bpm] (12/27/18 3:43 PM) (12/27/18 1:18 PM) Weight 101.364 kg (12/27/18 12:51 PM) Body Mass Index 29.48 m2 (12/27/18 12:51 PM) Problem List Condition Effective Dates Status Health Status Informant 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) Diabetes(Confirmed) Resolved GERD - Active Gastro-esophageal reflux disease(Confirmed) HTN Resolved (hypertension)(Confi rmed) Skin cancer of Resolved nose(Confirmed) 1open bypass surgery Allergies, Adverse Reactions, Alerts Substance Reaction Severity Status NKDA Active Medications aspirin 81 mg tablet, enteric coated 81 mg=1 tab, PO, Daily, # 90 tab, 3 Refill(s) Start Date: 12/27/18 Status: Ordered Azopt 1% ophthalmic suspension one drop, Each Affected Ear, BID, 0 Refill(s) Start Date: 12/27/18 Status: Ordered Centrum Silver Men's PO, ONCE, 0 Refill(s) Start Date: 12/27/18 Status: Ordered Combigan ophthalmic solution 1 drp, OPTH, Q12H, # 10 mL, 0 Refill(s) Start Date: 12/27/18 Status: Ordered CoQ10 100 mg, PO, ONCE, 0 Refill(s) Start Date: 12/27/18 Status: Ordered Januvia 50 mg oral tablet 50 mg=1 tab, PO, Daily, # 90 tab, 1 Refill(s) Start Date: 12/27/18 Stop Date: 03/27/19 Status: Ordered normal saline 0.9% IV 250 mL 250 mL, Rate: 250 ml/hr, Infuse over: 1 hr, Route: IV, Dosing Weight 101.364 kg, Total Volume: 250, Start date: 12/27/18 13:57:00 [employer], Duration: 30 day, Stop da te: 01/26/19 14:56:00 CDT, 2.3, m2 Start Date: 12/27/18 Stop Date: 01/26/19 Status: Ordered Plavix 75 mg oral tablet 75 mg=1 tab, PO, Daily, # 30 tab, 0 Refill(s) Start Date: 12/27/18 Status: Ordered tamsulosin 0.4 mg oral capsule 0.4 mg=1 cap, PO, Daily, # 30 cap, 0 Refill(s) Start Date: 12/27/18 Status: Ordered Xarelto 20 mg oral tablet 20 mg=1 tab, PO, QPM, # 30 tab, 3 Refill(s) Start Date: 12/27/18 Status: Ordered Results CHEM PANEL Most recent to 1 oldest [Reference Range]: eGFR 41 mL/min/1.73m2 1 *NA* (12/27/18 1:22 PM) POC Creatinine 1.5 mg/dL [0.5-1.4 mg/dL] *HI* (12/27/18 1:22 PM) 1Result Comment: The eGFR is calculated using [...] be mul tiplied by the estimated BMI. Immunizations No data available for this section Procedures Procedure Date Related Diagnosis Body Site Status Appendectomy Completed Cardiac catheterisation, left heart Completed Cardiac revascularization with bypass Completed anastomosis Carpal tunnel decompression Completed Social History Social History Type Response Smoking Status Never smoker; Exposure to Tobacco Smoke None; Cigarette Smoking Last 365 Days No; Reg Smoking Cessation Counseling No entered on: 12/27/18 Assessment and Plan No data available for this section
--- OUTSIDE RECORDS SUMMARY | 2019-01-27 | XMS REPORT | Continuity of Care Document ---
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 [facility] I35.0 Active 12/21/2018 [facility] Acute heart failure<sup>1</sup> Resolved Problem 01/15/2019 open bypass surgery [facility] Coronary artery disease Resolved Problem 01/15/2019 [facility] Diabetes Resolved Problem 01/15/2019 [facility] GERD - Gastro-esophageal reflux disease Active Problem 01/15/2019 [facility] HTN (<span [id number]">Confirmed</span>) Resolved Problem 01/15/2019 [facility] Skin cancer of nose Resolved Problem 01/15/2019 [facility] NONRHEUMATIC AORTIC (VALVE) STENOSIS Active [facility] Medications Medication Details Route Status Patient Instructions Ordering Provider Order Date Source allopurinol 100 mg oral tablet 50 mg=0.5 tab, PO, Daily, # 30 tab, 2 Refill(s) Active 01/13/2019 [facility] predniSONE 20 mg oral tablet 30 mg=1.5 tab, PO, Daily, X 7 day, # 11 tab, 0 Refill(s) Active 01/13/2019 [facility] Furosemide 40 MG Oral Tablet [Lasix] 40 mg, 1 tab, Route: PO, Drug form: TAB, ONCE, Dosing Weight 108.778, kg, Start date: 01/13/19 9:31:00 ELDER COUNSELOR, Stop date: 01/13/19 9:31:00 CSTNotes: (Same as: Lasix) May cause GI upset. Give with food or milk. Inactive 01/13/2019 [facility] Furosemide 40 MG Oral Tablet [Lasix] 40 mg=1 tab, PO, Daily, # 90 tab, 1 Refill(s) Active 01/13/2019 [facility] Magnesium Sulfate 2 gm, 50 mL, Route: IVPB, Drug form: INJ, PRN, Dosing Weight 108.778, kg, PRN Abnormal Lab Result, For NON-ICU Patients Only., Start date: 01/13/19 7:16:00 ELDER COUNSELOR, Duration: 30 day, Stop date: 02/12/19 8:15:00 CDTNotes: WASTE: F/P - Sink; E - Municipal Trash Bin Inactive 01/13/2019 [facility] sodium phosphate 30 mmol, 10 mL, Route: IVPB, PRN, Dosing Weight 108.778, kg, PRN Abnormal Lab Result, For NON-ICU Patients Only., Start date: 01/13/19 7:16:00 ELDER COUNSELOR, Duration: 30 day, Stop date: 02/12/19 8:15:00 CDTNo amaya: Infuse over 4 hour. Do not infuse phosphorous concurrently in the same line as TPN or IVF that contains calcium. For double lumen central lines, phosphorous may be infused in a separate lumen from TPN. Inactive 01/13/2019 [facility] potassium phosphate 30 mmol, 10 mL, Route: IVPB, PRN, Dosing Weight 108.778, kg, PRN Abnormal Lab Result, For NON-ICU Patients Only., Start date: 01/13/19 7:16:00 ELDER COUNSELOR, Duration: 30 day, Stop date: 02/12/19 8:15:00 CDTNo amaya: (Same as: K Phosphate.) Do not infuse phosphorous concurrently in the same line as TPN or IVF that contains calcium. For double lumen central lines, phosphorous may be infused in a separate lumen from TPN. 1 mMol phoshate has 1.47 mEq potassium Infuse over 4 hours Inactive 01/13/2019 [facility] Calcium Gluconate 3 gm, 30 mL, Route: IVPB, PRN, Dosing Weight 108.778, kg, PRN Abnormal Lab Result, For NON-ICU Patients Only., Start date: 01/13/19 7:16:00 ELDER COUNSELOR, Duration: 30 day, Stop date: 02/12/19 8:15:00 CDTNotes: WASTE: F/P - Sink; E - Municipal Trash Bin Inactive 01/13/2019 [facility] Magnesium Oxide 800 mg, 2 tab, Route: PO, Drug form: TAB, PRN, Dosing Weight 108.778, kg, PRN Abnormal Lab Result, For NON-ICU Patients Only., Start date: 01/13/19 7:16:00 ELDER COUNSELOR, Duration: 30 day, Stop date: 02/12/19 8:15:00 CDTNotes: (Same as: Mag-Ox 400) Magnesium oxide [id number] elemental magnesium Dose=____mg magnesium oxide (___mg elemental magnesium) Inactive 01/13/2019 [facility] Potassium Chloride 20 mEq, 15 mL, Route: NJ, Drug form: LIQ, PRN, Dosing Weight 108.778, kg, PRN Abnormal Lab Result, For NON-ICU Patients Only, Start date: 01/13/19 7:16:00 ELDER COUNSELOR, Duration: 30 day, Stop date: 02/12/19 8:15:00 CDTNotes: (Same as: Potassium Chloride) Inactive 01/13/2019 [facility] potassium phosphate-sodium phosphate 250 mg-280 mg-160 mg oral powder for reconstitution 2 pkt, Route: PO, Drug Form: PDR/REC, Dosing Weight 108.778, kg, PRN, PRN Abnormal Lab Result, For NON-ICU Patients Only, Start date: 01/13/19 7:16:00 ELDER COUNSELOR, Duration: 30 day, Stop date: 02/12/19 8:15:00 CDTNotes: (Same as: Phos-NaK) Each 1.5 gm pkt has 250mg phosphorous. Mix w/2.5oz water and stir. Inactive 01/13/2019 [facility] Xarelto 15 mg, 1 tab, Route: PO, Drug form: TAB, QPM, Dosing Weight 100.455, kg, Start date: 01/12/19 17:00:00 ELDER COUNSELOR, Duration: 30 day, Stop date: 02/10/19 17:00:00 CDTNotes: (Same as: Xarelto) Administer with food No Longer Active 01/12/2019 [facility] clopidogrel 75 MG Oral Tablet [Plavix] 75 mg=1 tab, PO, Daily, # 30 tab, 2 Refill(s) Active 01/12/2019 [facility] losartan 50 mg oral tablet 50 mg=1 tab, PO, Daily, # 30 tab, 2 Refill(s) Active 01/12/2019 [facility] rivaroxaban 15 mg oral tablet 15 mg=1 tab, PO, QPM, # 30 tab, 3 Refill(s) Active 01/12/2019 [facility] Insulin regular 2 unit, 0.02 mL, Route: SUB-Q, Drug form: SOLN, TID-Before Meals, Dosing Weight 100.455, kg, PRN Blood Glucose Results, Start date: 01/12/19 12:43:00 ELDER COUNSELOR, Duration: 30 day, Stop date: 02/11/19 12:42: 00 CDTNotes: (Same as: Humulin R) Roll in palms of hands gently; Do not shake vigorously. "single patient use only" (Restricted to patients requiring a dose > 60 units) WASTE: F/P - Black; E - Municipal Trash Bin Stable for 28 days at room temperature Expires in days from Date No Longer Active 01/12/2019 [facility] Dextrose 50% Syringe 12.5 gm, 25 mL, Route: IVP, Drug Form: INJ, Dosing Weight 100.455, kg, PRN, PRN Blood Glucose Results, Start date: 01/12/19 12:43:00 ELDER COUNSELOR, Duration: 30 day, Stop date: 02/11/19 13:42:00 CDT No Longer Active 01/12/2019 [facility] Glucagon 1 mg, Route: IM, Drug form: PDR/INJ, PRN, Dosing Weight 100.455, kg, PRN Blood Glucose Results, Start date: 01/12/19 12:43:00 ELDER COUNSELOR, Duration: 30 day, Stop date: 02/11/19 13:42:00 CDT No Longer Active 01/12/2019 [facility] Losartan 50 mg, 1 tab, Route: PO, Drug form: TAB, Daily, Dosing Weight 100.455, kg, Start date: 01/12/19 9:39:00 ELDER COUNSELOR, Duration: 30 day, Stop date: 02/11/19 9:00:00 CDTNotes: (Same as: Cozaar) No Longer Active 01/12/2019 [facility] Plavix 75 mg, 1 tab, Route: PO, Drug form: TAB, Daily, Dosing Weight 100.455, kg, Start date: 01/12/19 9:00:00 ELDER COUNSELOR, Duration: 30 day, Stop date: 02/10/19 9:00:00 CDTNotes: (Same As: Plavix) No Longer Active 01/12/2019 [facility] Protonix 40 mg, 1 tab, Route: PO, Drug form: ECTAB, Before Breakfast, Dosing Weight 100.455, kg, Start date: 01/12/19 7:30:00 ELDER COUNSELOR, Duration: 30 day, Stop date: 02/10/19 7:30:00 CDTNotes: Tablet should not be chewed or crushed. (Same as: Protonix) No Longer Active 01/12/2019 [facility] NIFEdipine 60 mg oral tablet, extended release 60 mg, 1 tab, Route: PO, Drug form: ERTAB, ONCE, Dosing Weight 100.455, kg, Start date: 01/12/19 0:49:00 ELDER COUNSELOR, Stop date: 01/12/19 0:49:00 CSTNotes: (Same as: Adalat CC, Procardia XL) Give on empty stomach. Take 1 hour before or 2 hours after meal; "Avoid grapefruit and grapefruit juice". Do not crush Inactive 01/12/2019 [facility] Saline Flush 0.9% 10 ml, Route: IVP, Drug Form: INJ, Dosing Weight 100.455, kg, Q12H, Start date: 01/11/19 21:00:00 ELDER COUNSELOR, Duration: 30 day, Stop date: 02/10/19 9:00:00 CDTNotes: (Same as: BD Posiflush) No Longer Active 01/12/2019 [facility] insulin glargine 53 unit, 0.53 mL, Route: SUB-Q, Drug form: SOLN, Bedtime, Start date: 01/11/19 21:00:00 ELDER COUNSELOR, Duration: 30 day, Stop date: 02/09/19 21:00:00 CDTNotes: Same as: Lantus) Do not hold insulin without contact ing prescriber WASTE: F/P - Black; E - Municipal Trash Bin No Longer Active 01/12/2019 [facility] Levemir 53 unit, Route: SUB-Q, Bedtime, Dosing Weight 100.455, kg, Start date: 01/11/19 21:00:00 ELDER COUNSELOR, Duration: 30 day, Stop date: 02/09/19 21:00:00 CDT Inactive 01/12/2019 [facility] Cefazolin 1 gm, Route: IVPB, Q8H, Dosing Weight 100.455, kg, Start date: 01/11/19 16:00:00 ELDER COUNSELOR, Duration: 1 doses or times, Stop date: 01/11/19 16:00:00 ELDER COUNSELOR, ABX Indication: Surgical ProphylaxisNotes: (Same As: Leydi Ortiz) MEDICATION WASTE Product Size: 1000 mg Product Wasted: ___ mg Inactive 01/11/2019 [facility] normal saline 0.9% IV 250 mL 250 mL, Rate: 250 ml/hr, Infuse over: 1 hr, Route: IV, Dosing Weight 100.455 kg, Total Volume: 250, Start date: 01/11/19 14:25:00 ELDER COUNSELOR, Stop date: 01/26/19 14:56:00 CDT, 2.27, m2 No Longer Active 01/11/2019 [facility] Prednisone 30 mg, 3 tab, Route: PO, Drug form: TAB, Daily, Dosing Weight 100.455, kg, Start date: 01/11/19 14:00:00 ELDER COUNSELOR, Duration: 3 day, Stop date: 01/14/19 9:00:00 CDTNotes: (Same as: PredniSONE) Take with food. No Longer Active 01/11/2019 [facility] NIFEdipine 30 mg oral tablet, extended release 30 mg, 1 tab, Route: PO, Drug form: ERTAB, ONCE, Dosing Weight 100.455, kg, Start date: 01/11/19 13:16:00 ELDER COUNSELOR, Stop date: 01/11/19 13:16:00 CSTNotes: (Same as: Adalat CC, Procardia XL) Give on empty stomach. Take 1 hour before or 2 hours after meal; "Avoid grapefruit and grapefruit juice". Do not crush Inactive 01/11/2019 [facility] Saline Flush 0.9% 10 ml, Route: IVP, Drug Form: INJ, Dosing Weight 100.455, kg, PRN, PRN Line Flush, Start date: 01/11/19 12:58:00 ELDER COUNSELOR, Duration: 30 day, Stop date: 02/10/19 13:57:00 CDTNotes: (Same as: BD Posiflush) No Longer Active 01/11/2019 [facility] Nystatin 100 UNT/MG Topical Powder 1 appl, Route: TOP, PRN, Drug form: PWDR, PRN For Fungal Prophylaxis, Start date: 01/11/19 12:58:00 ELDER COUNSELOR, Duration: 30 day, Stop date: 02/10/19 13:57:00 CDTNotes: (Same as:Mycostatin, Nilstat) For external use only. No Longer Active 01/11/2019 [facility] POLYETHYLENE GLYCOL 3350 17 gm, 1 pkt, Route: PO, Drug form: PWDR, Daily, Dosing Weight 100.455, kg, Start date: 01/11/19 9:00:00 ELDER COUNSELOR, Duration: 30 day, Stop date: 02/09/19 9:00:00 CDTNotes: Dissolve in 8 oz of water or juice. (Same as: Miralax) No Longer Active 01/11/2019 [facility] Docusate 100 mg, 1 cap, Route: PO, Drug form: CAP, Q12H, Dosing Weight 100.455, kg, Start date: 01/11/19 9:00:00 ELDER COUNSELOR, Duration: 30 day, Stop date: 02/09/19 21:00:00 CDTNotes: (Same as: Colace) (Do Not Crush) No Longer Active 01/11/2019 [facility] Nicardipine 40 mg, 200 mL, Rate: Titrate, Start Dose: 5 mg/hr, Titration: 2mg every 15 minutes PRN, Goal(s): maintain MAP 75-85 mmHg, Max Dose: 15mg/hr, Route: IV, Dosing Weight 100.455 kg, Total Volume: 200, Start date: 01/11/19 8:33:00 ELDER COUNSELOR, Duration: 30 day, St...Notes: Same as: Cardene Concentration: (0.2 mg /1 ml ) Inactive 01/11/2019 [facility] Acetaminophen 1,000 mg, 100 mL, Route: IVPB, Drug form: INJ, ONCE, Dosing Weight 100.455, kg, PRN Pain Score 1-3, Start date: 01/11/19 8:33:00 CSTNotes: Infuse over 15 minutes Do not exceed 4gm/day of acetaminophen MEDICATION WASTE Product Size: 1000 mg Product Wasted: ___ mg Inactive 01/11/2019 [facility] Ondansetron 4 mg, 2 mL, Route: IVP, Drug form: INJ, Q8H, Dosing Weight 100.455, kg, PRN Nausea & Vomiting, Start date: 01/11/19 8:33:00 ELDER COUNSELOR, Duration: 30 day, Stop date: 02/10/19 8:32:00 CDTNotes: (Same as: Zofran) MEDICATION WASTE Product Size: 4 mg Product Wasted: ___ mg No Longer Active 01/11/2019 [facility] Sodium Chloride 0.9% (Bolus) IV 250 mL, 250 ml/hr, Infuse Over: 1 hr, Route: IV, 250, Drug form: INJ, ONCALL, Priority: Routine, Dosing Weight 98.182 kg, Start date: 01/11/19 6:00:00 ELDER COUNSELOR, Duration: 1 doses or times Inactive 01/11/2019 [facility] Exparel 20 mL, Route: InFILtration(local), Drug Form: INJ, Dosing Weight 98.182, kg, ONCALL, 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 Bunionectomy: 7 mL into the tissues surrounding the osteotomy and 1 mL into the subcutaneous tissue of the surgical site (total dose=8 mL [106 mg]) Hemorrhoidectomy: 30 mL (20 mL vial diluted with 10 mL NS) divided and administered as 6 injections of 5 mL each (total dose=30 mL [266 mg]) No Longer Active 01/11/2019 [facility] Sodium Chloride 0.9% (titrate) 250 mL 250 mL, Rate: To prime line and flush remaining blood products., Dosing Weight 98.182, kg, Route: IV, Total Volume: 250, Start Date: 01/11/19 5:45:00 ELDER COUNSELOR, Duration: 30 day, Stop date: 02/10/19 5:44:00 CDT, Replace Every: 24 hr No Longer Active 01/11/2019 [facility] Sodium Chloride 0.9% IV 750 mL 750 mL, Rate: 75 ml/hr, Infuse over: 10 hr, Route: IV, Dosing Weight 98.182 kg, Total Volume: 750, Start date: 01/11/19 5:45:00 ELDER COUNSELOR, Duration: 24 hr, Stop date: 01/12/19 5:44:00 ELDER COUNSELOR, 2.26, m2 Inactive 01/11/2019 [facility] Exparel 20 mL, Route: InFILtration(local), Drug Form: INJ, Dosing Weight 98.182, kg, ONCALL, 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, Start date: 01/09/19 15:00:00 ELDER COUNSELOR, Duration: 1 day, Stop date: 01/10/19 14:59:00 ELDER COUNSELOR No Longer Active 01/09/2019 [facility] Sodium Chloride 0.9% (Bolus) IV 250 mL, 250 ml/hr, Infuse Over: 1 hr, Route: IV, 250, Drug form: INJ, ONCALL, Priority: Routine, Dosing Weight 98.182 kg, Start date: 01/09/19 15:00:00 ELDER COUNSELOR, Duration: 1 doses or times No Longer Active 01/09/2019 [facility] Sodium Chloride 0.9% IV 750 mL 750 mL, Rate: 75 ml/hr, Infuse over: 10 hr, Route: IV, Dosing Weight 98.182 kg, Total Volume: 750, Start date: 01/09/19 14:40:00 ELDER COUNSELOR, Duration: 24 hr, Stop date: 01/10/19 14:39:00 ELDER COUNSELOR, 2.26, m2 No Longer Active 01/09/2019 [facility] Sodium Chloride 0.9% (titrate) 250 mL 250 mL, Rate: To prime line and flush remaining blood products., Dosing Weight 98.182, kg, Route: IV, Total Volume: 250, Start Date: 01/09/19 14:40:00 ELDER COUNSELOR, Duration: 30 day, Stop date: 02/08/19 14:39:00 CDT, Replace Every: 24 hr No Longer Active 01/09/2019 [facility] normal saline 0.9% IV 500 mL 500 mL, Rate: 500 ml/hr, Infuse over: 1 hr, Route: IV, Dosing Weight 98.182 kg, Total Volume: 500, Start date: 01/09/19 11:32:00 ELDER COUNSELOR, Duration: 30 day, Stop date: 02/08/19 12:31:00 CDT, 2.26, m2 No Longer Active 01/09/2019 [facility] normal saline 0.9% IV 1,000 mL 1,000 mL, Rate: 100 ml/hr, Infuse over: 10 hr, Route: IV, Dosing Weight 98.182 kg, Total Volume: 1,000, Start date: 01/09/19 11:32:00 ELDER COUNSELOR, Duration: 30 day, Stop date: 02/08/19 11:31:00 CDT, 2.26, m2 No Longer Active 01/09/2019 [facility] normal saline 0.9% IV 1000 mL 1,000 mL, Rate: 75 ml/hr, Infuse over: 13.3 hr, Route: IV, Dosing Weight 98.182 kg, Total Volume: 1,000, Start date: 01/09/19 11:29:00 ELDER COUNSELOR, Duration: 30 day, Stop date: 02/08/19 12:28:00 CDT, 2.26, m2 Inactive 01/09/2019 [facility] normal saline 0.9% IV 250 mL 250 mL, Rate: 250 ml/hr, Infuse over: 1 hr, Route: IV, Dosing Weight 98.182 kg, Total Volume: 250, Start date: 01/09/19 11:28:00 ELDER COUNSELOR, Duration: 30 day, Stop date: 02/08/19 12:27:00 CDT, 2.26, m2 Inactive 01/09/2019 [facility] insulin detemir 100 UNT/ML Injectable Solution [Levemir] 53 units, SUB-Q, Daily, 0 Refill(s) On Hold 01/09/2019 [facility] Furosemide 40 MG Oral Tablet [Lasix] 40 mg=1 tab, PO, Daily, # 30 tab, 0 Refill(s) On Hold 01/09/2019 [facility] normal saline 0.9% IV 250 mL 250 mL, Rate: 250 ml/hr, Infuse over: 1 hr, Route: IV, Dosing Weight 101.364 kg, Total Volume: 250, Start date: 12/27/18 13:57:00 ELDER COUNSELOR, Duration: 30 day, Stop date: 01/26/19 14:56:00 CDT, 2.3, m2 Active 12/27/2018 [facility] clopidogrel 75 MG Oral Tablet [Plavix] 75 mg=1 tab, PO, Daily, # 30 tab, 0 Refill(s) Active 12/27/2018 [facility] Aspirin 81 MG Enteric Coated Tablet 81 mg=1 tab, PO, Daily, # 90 tab, 3 Refill(s) Active 12/27/2018 [facility] Centrum Silver Men's PO, ONCE, 0 Refill(s) Active 12/27/2018 [facility] CoQ10 100 mg, PO, ONCE, 0 Refill(s) Active 12/27/2018 [facility] rivaroxaban 20 MG Oral Tablet [Xarelto] 20 mg=1 tab, PO, QPM, # 30 tab, 3 Refill(s) Active 12/27/2018 [facility] brinzolamide 10 MG/ML Ophthalmic Suspension [Azopt] one drop, Each Affected Ear, BID, 0 Refill(s) Active 12/27/2018 [facility] Brimonidine tartrate 2 MG/ML / Timolol 5 MG/ML Ophthalmic Solution [Combigan] 1 drp, OPTH, Q12H, # 10 mL, 0 Refill(s) Active 12/27/2018 [facility] tamsulosin 0.4 mg oral capsule 0.4 mg=1 cap, PO, Daily, # 30 cap, 0 Refill(s) Active 12/27/2018 [facility] sitagliptin 50 MG Oral Tablet [Januvia] 50 mg=1 tab, PO, Daily, # 90 tab, 1 Refill(s) Active 12/27/2018 [facility] Allergies, Adverse Reactions, Alerts Substance Category Reaction Severity Reaction type Status Date Reported Comments Source Immunizations Immunization Date Given Site Status Last Updated Comments Source Results Order Name Results Value Reference Range Date Interpretation Comments Source BACTERIAL - SEROLOGY MRSA by PCR Negative (01/13/19 7:27 AM) 01/13/2019 [facility] CHEM PANEL Phosphorus 2.9 mg/dL 2.5 - 4.5 01/13/2019 [facility] CHEM PANEL Magnesium Lvl 2.2 mg/dL 1.8 - 2.4 01/13/2019 [facility] CHEM PANEL eGFR 49 mL/min/1.73m2 01/13/2019 Result Comment: The eGFR is calculated using the [...] from the National Kidney Disease Education Program (NKDEP) which additionally recommends that when the eGFR is used in patients with extremes of body mass index for purposes of drug dosing, the eGFR should be multiplied by the estimated BMI. [facility] CHEM PANEL BUN 28 mg/dL 7 - 22 01/13/2019 [facility] CHEM PANEL Glucose Lvl 76 mg/dL 70 - 99 01/13/2019 [facility] CHEM PANEL Calcium Lvl 8.5 mg/dL 8.5 - 10.5 01/13/2019 [facility] CHEM PANEL Sodium Lvl 141 meq/L 135 - 145 01/13/2019 [facility] CHEM PANEL CO2 25 meq/L 24 - 32 01/13/2019 [facility] CHEM PANEL Chloride Lvl 110 meq/L 95 - 109 01/13/2019 [facility] CHEM PANEL Potassium Lvl 3.5 meq/L 3.5 - 5.1 01/13/2019 [facility] CHEM PANEL Creatinine Lvl 1.29 mg/dL 0.50 - 1.40 01/13/2019 [facility] CHEM PANEL AGAP 9.5 meq/L 10.0 - 20.0 01/13/2019 [facility] HEMATOLOGY Lymphocytes # 1.1 K/CMM 1.0 - 5.5 01/13/2019 [facility] HEMATOLOGY Monocytes # 0.8 K/CMM 0.0 - 0.8 01/13/2019 [facility] HEMATOLOGY Neutrophils # 6.3 K/CMM 1.5 - 8.1 01/13/2019 [facility] HEMATOLOGY Basophils 0.6 % 0.0 - 1.0 01/13/2019 [facility] HEMATOLOGY Monocytes 10.0 % 2.0 - 12.0 01/13/2019 [facility] HEMATOLOGY Eosinophils 0.5 % 0.0 - 4.0 01/13/2019 [facility] HEMATOLOGY Segs 75.5 % 45.0 - 75.0 01/13/2019 [facility] HEMATOLOGY Lymphocytes 13.4 % 20.0 - 40.0 01/13/2019 [facility] HEMATOLOGY PTT 35.8 s 22.9 - 35.8 01/13/2019 [facility] HEMATOLOGY INR 1.71 0.85 - 1.17 01/13/2019 [facility] HEMATOLOGY PT 19.7 s 12.0 - 14.7 01/13/2019 [facility] HEMATOLOGY MCH 28.0 pg 27.0 - 31.0 01/13/2019 [facility] HEMATOLOGY Hgb 10.8 g/dL 14.0 - 18.0 01/13/2019 [facility] HEMATOLOGY MCV 85.5 fL 80.0 - 94.0 01/13/2019 [facility] HEMATOLOGY Hct 32.8 % 42.0 - 54.0 01/13/2019 [facility] HEMATOLOGY WBC 8.3 K/CMM 3.7 - 10.4 01/13/2019 [facility] HEMATOLOGY RBC 3.83 M/CMM 4.70 - 6.10 01/13/2019 [facility] HEMATOLOGY MPV 9.5 fL 7.4 - 10.4 01/13/2019 [facility] HEMATOLOGY MCHC 32.8 g/dL 32.0 - 36.0 01/13/2019 [facility] HEMATOLOGY Platelet 79 K/CMM 133 - 450 01/13/2019 [facility] HEMATOLOGY RDW 17.4 % 11.5 - 14.5 01/13/2019 [facility] PARATHYROID PROFILE Ca Norm WB 1.15 mMol/L 1.05 - 1.25 01/13/2019 [facility] PARATHYROID PROFILE Ca Ion WB 1.13 mMol/L 1.05 - 1.25 01/13/2019 [facility] URINE AND STOOL UA RBC null 0 - 2 01/13/2019 [facility] URINE AND STOOL UA Mucus Few /LPF None Seen /LPF 01/13/2019 [facility] URINE AND STOOL UA Urobilinogen null 0.1 - 1.0 01/13/2019 [facility] URINE AND STOOL UA Nitrite Negative (01/12/19 10:36 PM) Negative 01/13/2019 [facility] URINE AND STOOL UA Leuk Est Small *ABN* (01/12/19 10:36 PM) Negative 01/13/2019 [facility] [facility] [place] URINE AND STOOL UA Sq Epi Occasional /LPF Few /LPF 01/13/2019 [facility] [place] URINE AND STOOL UA WBC 3 /HPF 0 - 5 01/13/2019 [facility] [place] URINE AND STOOL UA Protein Negative (01/12/19 10:36 PM) Negative 01/13/2019 [facility] [place] URINE AND STOOL UA Glucose 500 mg/dL Negative mg/dL 01/13/2019 [facility] [place] URINE AND STOOL UA Ketones Negative *NA* (01/12/19 10:36 PM) Negative 01/13/2019 [facility] [place] URINE AND STOOL UA Bili Negative *NA* (01/12/19 10:36 PM) Negative 01/13/2019 [facility] [place] URINE AND STOOL UA Blood Negative (01/12/19 10:36 PM) Negative 01/13/2019 [facility] [place] URINE AND STOOL UA Turbidity Clear (01/12/19 10:36 PM) Clear 01/13/2019 [facility] [place] URINE AND STOOL UA Color Yellow *NA* (01/12/19 10:36 PM) Yellow 01/13/2019 [facility] [place] URINE AND STOOL UA Spec Grav 1.027 <=1.030 01/13/2019 [facility] [place] URINE AND STOOL UA pH 5.0 5.0 - 8.0 01/13/2019 [facility] [place] CHEM PANEL eGFR 45 mL/min/1.73m2 01/12/2019 Result Comment: The eGFR is calculated using the [...] from the National Kidney Disease Education Program (NKDEP) which additionally recommends that when the eGFR is used in patients with extremes of body mass index for purposes of drug dosing, the eGFR should be multiplied by the estimated BMI. [facility] [place] CHEM PANEL CO2 26 meq/L 24 - 32 01/12/2019 [facility] [place] CHEM PANEL AGAP 12.0 meq/L 10.0 - 20.0 01/12/2019 [facility] [place] CHEM PANEL Calcium Lvl 8.4 mg/dL 8.5 - 10.5 01/12/2019 [facility] [place] CHEM PANEL Chloride Lvl 109 meq/L 95 - 109 01/12/2019 [facility] [place] CHEM PANEL Potassium Lvl 4.0 meq/L 3.5 - 5.1 01/12/2019 [facility] [place] CHEM PANEL Glucose Lvl 218 mg/dL 70 - 99 01/12/2019 [facility] [place] CHEM PANEL BUN 25 mg/dL 7 - 22 01/12/2019 [facility] [place] CHEM PANEL Creatinine Lvl 1.39 mg/dL 0.50 - 1.40 01/12/2019 [facility] [place] CHEM PANEL Sodium Lvl 143 meq/L 135 - 145 01/12/2019 [facility] [place] CHEM PANEL Magnesium Lvl 2.3 mg/dL 1.8 - 2.4 01/12/2019 [facility] [place] CHEM PANEL Phosphorus 2.7 mg/dL 2.5 - 4.5 01/12/2019 [facility] [place] HEMATOLOGY PTT 32.5 s 22.9 - 35.8 01/12/2019 [facility] [place] HEMATOLOGY PT 15.8 s 12.0 - 14.7 01/12/2019 [facility] [place] HEMATOLOGY INR 1.29 0.85 - 1.17 01/12/2019 [facility] [place] HEMATOLOGY Lymphocytes # 0.6 K/CMM 1.0 - 5.5 01/12/2019 [facility] [place] HEMATOLOGY Neutrophils # 4.3 K/CMM 1.5 - 8.1 01/12/2019 [facility] [place] HEMATOLOGY Basophils 0.2 % 0.0 - 1.0 01/12/2019 [facility] [place] HEMATOLOGY Monocytes 6.6 % 2.0 - 12.0 01/12/2019 [facility] [place] HEMATOLOGY Monocytes # 0.3 K/CMM 0.0 - 0.8 01/12/2019 [facility] [place] HEMATOLOGY Segs 82.3 % 45.0 - 75.0 01/12/2019 [facility] [place] HEMATOLOGY Lymphocytes 10.9 % 20.0 - 40.0 01/12/2019 [facility] [place] HEMATOLOGY MPV 9.3 fL 7.4 - 10.4 01/12/2019 [facility] [place] HEMATOLOGY Platelet 82 K/CMM 133 - 450 01/12/2019 [facility] [place] HEMATOLOGY RDW 17.1 % 11.5 - 14.5 01/12/2019 [facility] [place] HEMATOLOGY MCHC 33.4 g/dL 32.0 - 36.0 01/12/2019 [facility] [place] HEMATOLOGY MCH 28.5 pg 27.0 - 31.0 01/12/2019 [facility] [place] HEMATOLOGY MCV 85.2 fL 80.0 - 94.0 01/12/2019 [facility] [place] HEMATOLOGY Hct 34.3 % 42.0 - 54.0 01/12/2019 [facility] [place] HEMATOLOGY Hgb 11.5 g/dL 14.0 - 18.0 01/12/2019 [facility] [place] HEMATOLOGY RBC 4.02 M/CMM 4.70 - 6.10 01/12/2019 [facility] [place] HEMATOLOGY WBC 5.3 K/CMM 3.7 - 10.4 01/12/2019 [facility] [place] CHEM PANEL Uric Acid 7.2 mg/dL 3.8 - 8.0 01/11/2019 [facility] [place] CHEM PANEL eGFR 44 mL/min/1.73m2 01/11/2019 Result Comment: The eGFR is calculated using the [...] from the National Kidney Disease Education Program (NKDEP) which additionally recommends that when the eGFR is used in patients with extremes of body mass index for purposes of drug dosing, the eGFR should be multiplied by the estimated BMI. [facility] [place] CHEM PANEL Glucose Lvl 148 mg/dL 70 - 99 01/11/2019 [facility] [place] CHEM PANEL Sodium Lvl 142 meq/L 135 - 145 01/11/2019 [facility] [place] CHEM PANEL BUN 27 mg/dL 7 - 22 01/11/2019 [facility] [place] CHEM PANEL Creatinine Lvl 1.40 mg/dL 0.50 - 1.40 01/11/2019 [facility] [place] CHEM PANEL Calcium Lvl 8.7 mg/dL 8.5 - 10.5 01/11/2019 [facility] [place] CHEM PANEL Potassium Lvl 3.6 meq/L 3.5 - 5.1 01/11/2019 [facility] [place] CHEM PANEL Chloride Lvl 107 meq/L 95 - 109 01/11/2019 [facility] [place] CHEM PANEL CO2 26 meq/L 24 - 32 01/11/2019 [facility] [place] CHEM PANEL AGAP 12.6 meq/L 10.0 - 20.0 01/11/2019 [facility] [place] CHEM PANEL Magnesium Lvl 2.4 mg/dL 1.8 - 2.4 01/11/2019 [facility] [place] HEMATOLOGY RDW 17.3 % 11.5 - 14.5 01/11/2019 [facility] [place] HEMATOLOGY MPV 9.3 fL 7.4 - 10.4 01/11/2019 [facility] [place] HEMATOLOGY Platelet 90 K/CMM 133 - 450 01/11/2019 [facility] [place] HEMATOLOGY MCHC 33.0 g/dL 32.0 - 36.0 01/11/2019 [facility] [place] HEMATOLOGY MCH 28.5 pg 27.0 - 31.0 01/11/2019 [facility] [place] HEMATOLOGY MCV 86.4 fL 80.0 - 94.0 01/11/2019 [facility] [place] HEMATOLOGY WBC 6.0 K/CMM 3.7 - 10.4 01/11/2019 [facility] [place] HEMATOLOGY RBC 4.11 M/CMM 4.70 - 6.10 01/11/2019 [facility] [place] HEMATOLOGY Hct 35.5 % 42.0 - 54.0 01/11/2019 [facility] [place] HEMATOLOGY Hgb 11.7 g/dL 14.0 - 18.0 01/11/2019 [facility] [place] HEMATOLOGY INR 1.35 0.85 - 1.17 01/11/2019 [facility] [place] HEMATOLOGY PT 16.4 s 12.0 - 14.7 01/11/2019 [facility] [place] HEMATOLOGY PTT 37.2 s 22.9 - 35.8 01/11/2019 [facility] [place] HEMATOLOGY Basophils 0.8 % 0.0 - 1.0 01/11/2019 [facility] [place] HEMATOLOGY Monocytes 12.1 % 2.0 - 12.0 01/11/2019 [facility] [place] HEMATOLOGY Eosinophils 3.8 % 0.0 - 4.0 01/11/2019 [facility] [place] HEMATOLOGY Lymphocytes 21.3 % 20.0 - 40.0 01/11/2019 [facility] [place] HEMATOLOGY Segs 62.0 % 45.0 - 75.0 01/11/2019 [facility] [place] HEMATOLOGY Eosinophils # 0.2 K/CMM 0.0 - 0.5 01/11/2019 [facility] [place] HEMATOLOGY Monocytes # 0.7 K/CMM 0.0 - 0.8 01/11/2019 [facility] [place] HEMATOLOGY Lymphocytes # 1.3 K/CMM 1.0 - 5.5 01/11/2019 [facility] [place] HEMATOLOGY Neutrophils # 3.7 K/CMM 1.5 - 8.1 01/11/2019 [facility] [place] PARATHYROID PROFILE Ca Ion WB 1.10 mMol/L 1.05 - 1.25 01/11/2019 [facility] [place] PARATHYROID PROFILE Ca Norm WB 1.10 mMol/L 1.05 - 1.25 01/11/2019 [facility] [place] BLOOD BANK RESULTS ABO/Rh O NEG 01/11/2019 [facility] [place] BLOOD BANK RESULTS Antibody Scrn Negative (01/11/19 5:48 AM) 01/11/2019 [facility] [place] CARDIAC ENZYMES BNP 1369 pg/mL <=100 pg/mL 01/11/2019 [facility] [place] CHEM PANEL Albumin Lvl 3.4 g/dL 3.5 - 5.0 01/11/2019 [facility] [place] CHEM PANEL ALT 28 unit/L 0 - 65 01/11/2019 [facility] [place] CHEM PANEL AST 25 unit/L 0 - 37 01/11/2019 [facility] [place] CHEM PANEL Total Protein 7.2 g/dL 6.4 - 8.4 01/11/2019 [facility] [place] CHEM PANEL Bili Total 0.7 mg/dL 0.2 - 1.3 01/11/2019 [facility] [place] CHEM PANEL Alk Phos 109 unit/L 39 - 136 01/11/2019 [facility] [place] CHEM PANEL A/G Ratio 0.9 0.7 - 1.6 01/11/2019 [facility] [place] CHEM PANEL Globulin 3.8 g/dL 2.7 - 4.2 01/11/2019 [facility] [place] CHEM PANEL B/C Ratio 18 6 - 25 01/11/2019 [facility] [place] HEMATOLOGY Eosinophils 4.1 % 0.0 - 4.0 01/11/2019 [facility] [place] HEMATOLOGY Eosinophils # 0.2 K/CMM 0.0 - 0.5 01/11/2019 [facility] [place] HEMATOLOGY Basophils # 0.1 K/CMM 0.0 - 0.2 01/11/2019 [facility] [place] BLOOD BANK RESULTS FFP product Product available (01/11/19 5:45 AM) 01/11/2019 [facility] [place] BLOOD BANK RESULTS RBC product Product available (01/11/19 5:45 AM) 01/11/2019 [facility] [place] Chest 1view DX Chest 1view DX EXAM: XR CHEST 1 VIEW DATE: 01/11/2019 1212 hours ELDER COUNSELOR INDICATION: Arrhythmias - s/p TAVR COMPARISON: CTA chest abdomen pelvis 12/27/2018 TECHNIQUE: AP chest FINDINGS: Lines, tubes and hardware: Note made of fractured 7th median sternotomy wire. The remaining medial sternotomy wires are intact. TAVR is in expected position. Mediastinal surgical clips are intact. Lungs and pleura: Mild prominent pulmonary reticulation is present. No pleural effusion or pneumothorax. Heart and mediastinum: The heart size is enlarged. 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 The thoracic aorta is tortuous. Pulmonary vascularity is normal. Bones: No acute abnormality. IMPRESSION: 1. TAVR in expected position and without complication. 2. Mild prominent pulmonary reticulation may represent pulmonary edema. Superimposed infection cannot be excluded. 01/11/2019 - - This report was dictated by a Jewelry Sales Associate/Fellow/Physician Grader Patrol. I have personally reviewed the images as well as the interpretation and agree with the findings. Read by: Maria E Camilo MD Resident/Fellow/Physician Grader Patrol: Maria E Camilo MD Dictated Date/time: 01/11/19 13:12 Electronically Signed by: Rajeev Vizcaino MD 01/11/19 14:37 FINAL REPORT [facility] [place] CARDIAC ENZYMES BNP 704 pg/mL <=100 pg/mL 01/09/2019 [facility] [place] CHEM PANEL Magnesium Lvl 2.6 mg/dL 1.8 - 2.4 01/09/2019 [facility] [place] CHEM PANEL eGFR 41 mL/min/1.73m2 01/09/2019 Result Comment: The eGFR is calculated using the [...] from the National Kidney Disease Education Program (NKDEP) which additionally recommends that when the eGFR is used in patients with extremes of body mass index for purposes of drug dosing, the eGFR should be multiplied by the estimated BMI. [facility] [place] CHEM PANEL Chloride Lvl 106 meq/L 95 - 109 01/09/2019 [facility] [place] CHEM PANEL Potassium Lvl 3.2 meq/L 3.5 - 5.1 01/09/2019 [facility] [place] CHEM PANEL Calcium Lvl 8.3 mg/dL 8.5 - 10.5 01/09/2019 [facility] [place] CHEM PANEL CO2 28 meq/L 24 - 32 01/09/2019 [facility] [place] CHEM PANEL Glucose Lvl 104 mg/dL 70 - 99 01/09/2019 [facility] [place] CHEM PANEL Sodium Lvl 143 meq/L 135 - 145 01/09/2019 [facility] [place] CHEM PANEL BUN 28 mg/dL 7 - 22 01/09/2019 [facility] [place] CHEM PANEL Creatinine Lvl 1.48 mg/dL 0.50 - 1.40 01/09/2019 [facility] [place] CHEM PANEL Total Protein 6.3 g/dL 6.4 - 8.4 01/09/2019 [facility] [place] CHEM PANEL Bili Total 0.8 mg/dL 0.2 - 1.3 01/09/2019 [facility] [place] CHEM PANEL Alk Phos 76 unit/L 39 - 136 01/09/2019 [facility] [place] CHEM PANEL Albumin Lvl 3.0 g/dL 3.5 - 5.0 01/09/2019 [facility] [place] CHEM PANEL ALT 18 unit/L 0 - 65 01/09/2019 [facility] [place] CHEM PANEL AST 24 unit/L 0 - 37 01/09/2019 [facility] [place] CHEM PANEL B/C Ratio 19 6 - 25 01/09/2019 [facility] [place] CHEM PANEL AGAP 12.2 meq/L 10.0 - 20.0 01/09/2019 [facility] [place] CHEM PANEL Globulin 3.3 g/dL 2.7 - 4.2 01/09/2019 [facility] [place] CHEM PANEL A/G Ratio 0.9 0.7 - 1.6 01/09/2019 [facility] [place] BLOOD BANK RESULTS RBC product Product available (01/09/19 2:40 PM) 01/09/2019 [facility] [place] BLOOD BANK RESULTS FFP product Product available (01/09/19 2:40 PM) 01/09/2019 [facility] [place] URINE AND STOOL UA Bacteria Occasional /HPF None Seen /HPF 01/09/2019 [facility] [place] URINE AND STOOL UA Amorph Angelica Few /HPF None Seen /HPF 01/09/2019 [facility] [place] URINE AND STOOL UA Hyal Cast 2 /LPF 0 - 2 01/09/2019 [facility] [place] URINE AND STOOL UA Leuk Est Trace *ABN* (01/09/19 2:40 PM) Negative 01/09/2019 [facility] [place] URINE AND STOOL UA Sq Epi Occasional /LPF Few /LPF 01/09/2019 [facility] [place] URINE AND STOOL UA WBC 1 /HPF 0 - 5 01/09/2019 [facility] [place] URINE AND STOOL UA RBC 1 /HPF 0 - 2 01/09/2019 [facility] [place] URINE AND STOOL UA Nitrite Negative (01/09/19 2:40 PM) Negative 01/09/2019 [facility] [place] URINE AND STOOL UA Urobilinogen null 0.1 - 1.0 01/09/2019 [facility] [place] URINE AND STOOL UA Bili Negative *NA* (01/09/19 2:40 PM) Negative 01/09/2019 [facility] [place] URINE AND STOOL UA Blood Negative (01/09/19 2:40 PM) Negative 01/09/2019 [facility] [place] URINE AND STOOL UA Glucose Negative *NA* (01/09/19 2:40 PM) Negative 01/09/2019 [facility] [place] URINE AND STOOL UA Ketones Negative *NA* (01/09/19 2:40 PM) Negative 01/09/2019 [facility] [place] URINE AND STOOL UA Protein Negative (01/09/19 2:40 PM) Negative 01/09/2019 [facility] [place] URINE AND STOOL UA pH 7.0 5.0 - 8.0 01/09/2019 [facility] [place] URINE AND STOOL UA Turbidity Marked *ABN* (01/09/19 2:40 PM) Clear 01/09/2019 [facility] [place] URINE AND STOOL UA Color Yellow *NA* (01/09/19 2:40 PM) Yellow 01/09/2019 [facility] [place] URINE AND STOOL UA Spec Grav 1.016 <=1.030 01/09/2019 [facility] [place] BLOOD BANK RESULTS Antibody Scrn Negative (01/09/19 10:34 AM) 01/09/2019 [facility] [place] BLOOD BANK RESULTS ABO/Rh O NEG 01/09/2019 [facility] [place] CHEM PANEL eGFR 35 mL/min/1.73m2 01/09/2019 Result Comment: The eGFR is calculated using the [...] from the National Kidney Disease Education Program (NKDEP) which additionally recommends that when the eGFR is used in patients with extremes of body mass index for purposes of drug dosing, the eGFR should be multiplied by the estimated BMI. [facility] [place] CHEM PANEL Potassium Lvl 3.8 meq/L 3.5 - 5.1 01/09/2019 [facility] [place] CHEM PANEL Glucose Lvl 132 mg/dL 70 - 99 01/09/2019 [facility] [place] CHEM PANEL BUN 30 mg/dL 7 - 22 01/09/2019 [facility] [place] CHEM PANEL Sodium Lvl 142 meq/L 135 - 145 01/09/2019 [facility] [place] CHEM PANEL Creatinine Lvl 1.71 mg/dL 0.50 - 1.40 01/09/2019 [facility] [place] CHEM PANEL CO2 30 meq/L 24 - 32 01/09/2019 [facility] [place] CHEM PANEL Chloride Lvl 103 meq/L 95 - 109 01/09/2019 [facility] [place] CHEM PANEL Calcium Lvl 9.2 mg/dL 8.5 - 10.5 01/09/2019 [facility] [place] CHEM PANEL AGAP 12.8 meq/L 10.0 - 20.0 01/09/2019 [facility] [place] HEMATOLOGY RDW 17.0 % 11.5 - 14.5 01/09/2019 [facility] [place] HEMATOLOGY MCHC 33.0 g/dL 32.0 - 36.0 01/09/2019 [facility] [place] HEMATOLOGY Platelet 108 K/CMM 133 - 450 01/09/2019 [facility] [place] HEMATOLOGY MPV 9.2 fL 7.4 - 10.4 01/09/2019 [facility] [place] HEMATOLOGY Hgb 13.2 g/dL 14.0 - 18.0 01/09/2019 [facility] [place] HEMATOLOGY MCV 86.3 fL 80.0 - 94.0 01/09/2019 [facility] [place] HEMATOLOGY Hct 40.1 % 42.0 - 54.0 01/09/2019 [facility] [place] HEMATOLOGY WBC 6.3 K/CMM 3.7 - 10.4 01/09/2019 [facility] [place] HEMATOLOGY RBC 4.65 M/CMM 4.70 - 6.10 01/09/2019 [facility] [place] HEMATOLOGY MCH 28.5 pg 27.0 - 31.0 01/09/2019 [facility] [place] HEMATOLOGY Segs 60.2 % 45.0 - 75.0 01/09/2019 [facility] [place] HEMATOLOGY Lymphocytes 21.1 % 20.0 - 40.0 01/09/2019 [facility] [place] HEMATOLOGY Monocytes 13.3 % 2.0 - 12.0 01/09/2019 [facility] [place] HEMATOLOGY Neutrophils # 3.8 K/CMM 1.5 - 8.1 01/09/2019 [facility] [place] HEMATOLOGY Basophils 1.2 % 0.0 - 1.0 01/09/2019 [facility] [place] HEMATOLOGY Eosinophils 4.2 % 0.0 - 4.0 01/09/2019 [facility] [place] HEMATOLOGY Lymphocytes # 1.3 K/CMM 1.0 - 5.5 01/09/2019 [facility] [place] HEMATOLOGY Basophils # 0.1 K/CMM 0.0 - 0.2 01/09/2019 [facility] [place] HEMATOLOGY Eosinophils # 0.3 K/CMM 0.0 - 0.5 01/09/2019 [facility] [place] HEMATOLOGY Monocytes # 0.8 K/CMM 0.0 - 0.8 01/09/2019 [facility] [place] HEMATOLOGY PT 15.8 s 12.0 - 14.7 01/09/2019 [facility] [place] HEMATOLOGY INR 1.29 0.85 - 1.17 01/09/2019 [facility] [place] HEMATOLOGY PTT 31.1 s 22.9 - 35.8 01/09/2019 [facility] [place] CHEM PANEL eGFR 41 mL/min/1.73m2 12/27/2018 Result Comment: The eGFR is calculated using the [...] from the National Kidney Disease Education Program (NKDEP) which additionally recommends that when the eGFR is used in patients with extremes of body mass index for purposes of drug dosing, the eGFR should be multiplied by the estimated BMI. [facility] CHEM PANEL POC Creatinine 1.5 mg/dL 0.5 - 1.4 12/27/2018 [facility] Heart/coronary art TAVR CTA Heart/coronary art TAVR CTA EXAM: CTA HEART WITH CONTRAST DATE: 12/27/2018 12:51 ELDER COUNSELOR INDICATION: - aortic stenosis. Aortic stenosis. COMPARISON: No available prior cardiac CTA for comparison TECHNIQUE: Contrast imaging was performed on a [employer] [address] scanner utilizing a single breath hold, at 750 mA and 120 kVp. Retrospective ECG gating was performed, at a heart rate of 56 bpm. Images were reformatted at 0.5 mm intervals and sent to the [facility] workstation for interpretation of both systolic and diastolic phases. IV contrast: 80 mL of Visipaque 320 contrast was delivered intravenously at 5 mL/sec followed by a 50 mL normal saline bolus chaser. DLP: 555 mGy-cm STUDY QUALITY: Good FINDINGS: Aortic root landmarks (dimensions determined in systolic phases) Aortic valve: Trifleaflet: asymmetricallycalcified; bulky leaflet: No; right/left/noncoronary Aortic annulus: 28 x 24 mm; average 25 mm; area 5 sq cm; circumference 82 mm Sino-tubular junction: 30 x 28 mm; average 29 mm Ao annulus to coronary height: left main: 16 mm; right: 16 mm Ao annulus to STJ length: 23 mm Sinuses of Valsalva: width 34 mm Ascending aorta width at 40 mm from annulus: 37 mm Descending thoracic aorta: width: 32 mm Coplanar TAVR angle: [id number] 10 and CRANIAL 3 Coronary Arteries: This patient has a right dominant system, with normal origins of the coronary arteries. Dense calcifications are seen along the 3 coronary artery. Status post coronary artery bypass graft with great saphenous vein graft to OM2. The graft is patent. ROCHA graft is also noted to the distal portion of the left anterior descending coronary artery which also appears patent. Basal septal hypertrophy: No Severe hypertrophy (1.5 cm wall thickness): No Intracardiac masses: No Other cardiac findings: Pacemaker: No Artificial valve: No; Location: N/A Intracardiac closure device: No Mild mitral and calcifications. Left ventricular function: Left ventricular ejection fraction: 41% Left ventricular end-diastolic volume: 145 mL Left ventricular end-systolic volume: 85 mL Left ventricular stroke volume: 60 mL Noncardiac findings coronal and Small sliding hiatal hernia is noted. IMPRESSION: 1. Trileaflet symmetrically calcified aortic valve and with aortic annular measurements as described above. 2. Mildly depressed left ventricular function with LVEF of 41%. 3. Small sliding hiatal hernia is noted. 4. Scattered dense calcifications are seen along the 3 coronary arteries, status post coronary artery bypass graft with postsurgical changes. The ROCHA graft and GSV to OM2 are patent. 12/27/2018 - - Read by: Rajeev Vizcaino MD Dictated Date/time: 12/29/18 08:14 Electronically Signed by: Rajeev Vizcaino MD 12/29/18 09:13 FINAL REPORT [facility] Chest/Abd/Pelvis TAVR CTA Chest/Abd/Pelvis TAVR CTA EXAM: VIR CT angiogram thorax abdomen and pelvis. TAVR protocol INDICATION: 88 years old Male with aortic stenosis TECHNIQUE: Following the administration of intravenous contrast, 3 mm slices from the thoracic inlet through the pubic symphysis were obtained in arterial phase. Images are reviewed on 3D workstation. COMPARISON: None FINDINGS: Vascular Measurements: Ascending aorta: 38 mm x 38 mm Aortic arch: 34 mm Mid-descending thoracic aorta: 33 mm x 32 mm Aorta at diaphragm: 26 mm x 27 mm Aorta at celiac axis: 26 mm x 28 mm Aorta at superior mesenteric artery: 25 mm x 28 mm Mid-infrarenal aorta: 26 mm x 23 mm Right common iliac artery: 14 mm x 18 mm Right external iliac artery: 11 mm x 9 mm Right common femoral artery: 12 mm x 11 mm Left common iliac artery: 13 mm x 13 mm Left external iliac artery: 12 mm x 9 mm Left common femoral artery: 14 mm x 13 mm Right subclavian artery: 11 mm x 13 mm Left subclavian artery: 13 mm x 11 mm Calcific scores: Ascending aorta: 0 Aortic arch: 1 Descending thoracic aorta: 2 Aorta at diaphragm: 2 Suprarenal abdominal aorta: 3 Infrarenal abdominal aorta: 3 0 :none 1 :punctate calcifications 2 : <50% of vessel circumference is confluent calcification 3 : >50% of vessel circumference is confluent calcification Ascending aorta: Unremarkable Aortic arch: Unremarkable Descending aorta: Unremarkable Abdominal aorta: Unremarkable Celiac axis: 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 Rest unremarkable Superior mesenteric artery: Unremarkable, branches appear normal Inferior mesenteric artery: Unremarkable Renal arteries: Bilateral single. Unremarkable Bilateral common iliac, internal and external iliac arteries: Unremarkable Bilateral common femoral arteries: Unremarkable Nonvascular findings: Heart and mediastinum: Aortic valve and coronary calcification. Lung parenchyma: Unremarkable Pleural and pericardial spaces: Unremarkable Chest wall and soft tissue: Unremarkable Hepatobiliary: Unremarkable Gallbladder: Unremarkable, calcification along the gallbladder wall, could represent small gallbladder calculi. Pancreas: Unremarkable Spleen: Unremarkable Suprarenal glands: Unremarkable Kidneys: Multiple simple cysts involving the left kidney measuring 1.6 cm at the largest Bladder: Normal. Reproductive organs: Normal Gastrointestinal tract: Stomach: Normal. Small bowel: Normal. Colon: Diverticular disease without evidence of diverticulitis Appendix: Normal. Peritoneum, mesentery and retroperitoneum: No free air, ascites or loculated fluid. Lymph nodes: Normal. Bones: No acute abnormality. Soft tissues: Normal. Hiatal hernia present Impression: 1. CTA performed for TAVR planning, with measurements as indicated above. 2. 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 Large hiatal hernia. 4. Diverticular disease involving the sigmoid colon I have reviewed these images and agree with the above findings. 12/27/2018 - - This report was dictated by a Jewelry Sales Associate/Fellow/Physician Grader Patrol. I have personally reviewed the images as well as the interpretation and agree with the findings. Read by: Hayley Davis MD Resident/Fellow/Physician Grader Patrol: Hayley Davis MD Dictated Date/time: 12/28/18 13:57 Electronically Signed by: Tee iMx MD 12/30/18 07:29 FINAL REPORT [facility] Bladder US Bladder US EXAM: Renal ultrasound. Urinary bladder ultrasound. CLINICAL HX: N18.3 Chronic kidney disease, stage 3 (moderate). . . TECHNIQUE: Grayscale and Doppler sonogram of the kidneys. Grayscale and Doppler sonogram of the urinary bladder. COMPARISON: None. FINDINGS: Right kidney: Length: 12.2 cm. Cortical thickness: 1.5 cm. Hydronephrosis: Negative. Echogenicity: Within normal limits. Other: None. Left kidney: Length: 11.9 cm. Cortical thickness: 1.4 cm. Hydronephrosis: Negative. Echogenicity: Within normal limits. Other: Upper pole 1.3 cm and midpole 1.2 cm anechoic cysts. Urinary bladder: Lumen: Unremarkable. Ureteral jets: Visualized bilaterally. Volume: Prevoid 191 cc, postvoid 69 cc. Aorta: Visualized portions are unremarkable. Common iliac artery origins: Not well evaluated. IVC: Visualized portions are unremarkable. Other: None. IMPRESSION: Renal: 1. No hydronephrosis. 2. Small left renal anechoic cysts. Bladder: 1. Mild post void residual. 08/31/2016 - - Read by: Ashkan Larios MD Dictated Date/time: 08/31/16 16:43 Electronically Signed by: Ashkan Larios MD 08/31/16 17:40 FINAL REPORT [facility] Retroperitoneal limited US Retroperitoneal limited US EXAM: Renal ultrasound. Urinary bladder ultrasound. CLINICAL HX: N18.3 Chronic kidney disease, stage 3 (moderate). . . TECHNIQUE: Grayscale and Doppler sonogram of the kidneys. Grayscale and Doppler sonogram of the urinary bladder. COMPARISON: None. FINDINGS: Right kidney: Length: 12.2 cm. Cortical thickness: 1.5 cm. Hydronephrosis: Negative. Echogenicity: Within normal limits. Other: None. Left kidney: Length: 11.9 cm. Cortical thickness: 1.4 cm. Hydronephrosis: Negative. Echogenicity: Within normal limits. Other: Upper pole 1.3 cm and midpole 1.2 cm anechoic cysts. Urinary bladder: Lumen: Unremarkable. Ureteral jets: Visualized bilaterally. Volume: Prevoid 191 cc, postvoid 69 cc. Aorta: Visualized portions are unremarkable. Common iliac artery origins: Not well evaluated. IVC: Visualized portions are unremarkable. Other: None. IMPRESSION: Renal: 1. No hydronephrosis. 2. Small left renal anechoic cysts. Bladder: 1. Mild post void residual. 08/31/2016 - - Read by: Ashkan Larios MD Dictated Date/time: 08/31/16 16:43 Electronically Signed by: Ashkan Larios MD 08/31/16 17:40 FINAL REPORT [facility] Vital Signs Vital Sign Value Date Comments Source Systolic (mm Hg) 123 01/13/2019 [facility] Diastolic (mm Hg) 65 01/13/2019 [facility] Systolic (mm Hg) 126 01/13/2019 [facility] Diastolic (mm Hg) 61 01/13/2019 [facility] Systolic (mm Hg) 109 01/13/2019 [facility] Diastolic (mm Hg) 58 01/13/2019 [facility] Respitory Rate 20 01/13/2019 [facility] Weight 108.778 01/13/2019 [facility] Respitory Rate 18 01/13/2019 [facility] Respitory Rate 15 01/13/2019 [facility] Temperature Oral (F) 98.4 F 01/13/2019 [facility] Temperature Oral (F) 98.3 F 01/13/2019 [facility] Temperature Oral (F) 97.0 F 01/12/2019 [facility] Height 182.88 cm 01/11/2019 [facility] Weight 100.455 01/11/2019 [facility] BMI Calculated 30.04 01/11/2019 [facility] Systolic (mm Hg) 110 01/09/2019 [facility] Diastolic (mm Hg) 66 01/09/2019 [facility] Weight 98.182 01/09/2019 [facility] BMI Calculated 28.56 01/09/2019 [facility] Height 185.42 cm 01/09/2019 [facility] Systolic (mm Hg) 131 12/27/2018 [facility] Diastolic (mm Hg) 79 12/27/2018 [facility] Heart Rate 74 12/27/2018 [facility] Heart Rate 68 12/27/2018 [facility] Systolic (mm Hg) 140 12/27/2018 [facility] Diastolic (mm Hg) 83 12/27/2018 [facility] Weight 101.364 12/27/2018 [facility] BMI Calculated 29.48 12/27/2018 [facility] Height 185.42 cm 12/27/2018 [facility] Encounters Location Location Details Encounter Type Encounter Number Reason For Visit Attending Provider ADM Date DC Date Status Source [facility] [place] [facility] Di[facility] Services [id number] Robin Fritz 08/31/2016 09/01/2016 [facility] Outpatient [id number] Vernon Arredondo 12/27/2018 12/28/2018 [facility] [id number] Vernon Arredondo 01/09/2019 01/09/2019 [facility] Inpatient [id number] Vernon Arredondo 01/11/2019 01/13/2019 [facility] Procedures Procedure Code Date Perfomer Comments Source Cardiac revascularization with bypass anastomosis [id number] [facility]end[facility] [id number] [facility] Cardiac catheterisation, left heart [id number] [facility] Cardiac revascularization with bypass anastomosis [id number] [facility] Carpal tunnel decompression [id number] [facility]
--- OUTSIDE RECORDS SUMMARY | 2019-01-27 | XMS REPORT | Summary of Care ---
Author Author [facility] Organization [facility] Address Unknown Phone Unavailable Encounter AMBIKA Domingo(MENDOZA) [id number] Date(s): 01/09/19 - 01/09/19 [facility] [address] Professional Services provided by [facility] [place] [address]- Discharge Disposition: Home or Self Care Attending Physician: Vernon Arredondo MD Admitting Physician: Vernon Arredondo MD Referring Physician: Vernon Arredondo MD Vital Signs Most recent to 1 oldest [Reference Range]: Height 185.42 cm (01/09/19 10:32 AM) Blood Pressure 110/66 mmHg [90-140/60-90 mmHg] (01/09/19 11:47 AM) Weight 98.182 kg (01/09/19 10:32 AM) Body Mass Index 28.56 m2 (01/09/19 10:32 AM) Problem List Condition Effective Dates Status Health Status Informant 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) Diabetes(Confirmed) Resolved GERD - Active Gastro-esophageal reflux disease(Confirmed) HTN Resolved (hypertension)(Confi rmed) Skin cancer of Resolved nose(Confirmed) 1open bypass surgery Allergies, Adverse Reactions, Alerts Substance Reaction Severity Status NKDA Active Medications Exparel 20 mL, Route: InFILtration(local), Drug Form: INJ, Dosing Weight 98.182, kg, ONC 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, 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, Start date: 01/09/19 15:00:00 SUPERVISOR PASTRY, Duration: 1 day, St op date: 01/10/19 14:59:00 SUPERVISOR PASTRY Start Date: 01/09/19 Stop Date: 01/10/19 Status: Discontinued Lasix 40 mg oral tablet 40 mg=1 tab, PO, Daily, # 30 tab, 0 Refill(s) Start Date: 01/09/19 Status: Suspended Levemir 100 units/mL 53 units, SUB-Q, Daily, 0 Refill(s) Start Date: 01/09/19 Status: Suspended normal saline 0.9% IV 1,000 mL 1,000 mL, Rate: 100 ml/hr, Infuse over: 10 hr, Route: IV, Dosing Weight 98.182 k g, Total Volume: 1,000, Start date: 01/09/19 11:32:00 SUPERVISOR PASTRY, Duration: 30 day, Sto p date: 02/08/19 11:31:00 CDT, 2.26, m2 Start Date: 01/09/19 Stop Date: 01/10/19 Status: Discontinued normal saline 0.9% IV 1000 mL 1,000 mL, Rate: 75 ml/hr, Infuse over: 13.3 hr, Route: IV, Dosing Weight 98.182 kg, Total Volume: 1,000, Start date: 01/09/19 11:29:00 SUPERVISOR PASTRY, Duration: [address] day, St op date: 02/08/19 12:28:00 CDT, 2.26, m2 Start Date: 01/09/19 Stop Date: 01/09/19 Status: Discontinued normal saline 0.9% IV 250 mL 250 mL, Rate: 250 ml/hr, Infuse over: 1 hr, Route: IV, Dosing Weight 98.182 kg, Total Volume: 250, Start date: 01/09/19 11:28:00 SUPERVISOR PASTRY, Duration: 30 day, Stop power e: 02/08/19 12:27:00 CDT, 2.26, m2 Start Date: 01/09/19 Stop Date: 01/09/19 Status: Discontinued normal saline 0.9% IV 500 mL 500 mL, Rate: 500 ml/hr, Infuse over: 1 hr, Route: IV, Dosing Weight 98.182 kg, Total Volume: 500, Start date: 01/09/19 11:32:00 SUPERVISOR PASTRY, Duration: 30 day, Stop power e: 02/08/19 12:31:00 CDT, 2.26, m2 Start Date: 01/09/19 Stop Date: 01/10/19 Status: Discontinued Sodium Chloride 0.9% (Bolus) IV 250 mL, 250 ml/hr, Infuse Over: 1 hr, Route: IV, 250, Drug form: INJ, ONCALL, Pr iority: Routine, Dosing Weight 98.182 kg, Start date: 01/09/19 15:00:00 SUPERVISOR PASTRY, Dur ation: 1 doses or times Start Date: 01/09/19 Stop Date: 01/10/19 Status: Discontinued Sodium Chloride 0.9% (titrate) 250 mL 250 mL, Rate: To prime line and flush remaining blood products., Dosing Weight 9 8.182, kg, Route: IV, Total Volume: 250, Start Date: 01/09/19 14:40:00 SUPERVISOR PASTRY, Dura tion: 30 day, Stop date: 02/08/19 14:39:00 CDT, Replace Every: 24 hr Start Date: 01/09/19 Stop Date: 01/10/19 Status: Discontinued Sodium Chloride 0.9% IV 750 mL 750 mL, Rate: 75 ml/hr, Infuse over: 10 hr, Route: IV, Dosing Weight 98.182 kg, Total Volume: 750, Start date: 01/09/19 14:40:00 SUPERVISOR PASTRY, Duration: 24 hr, Stop date : 01/10/19 14:39:00 SUPERVISOR PASTRY, 2.26, m2 Start Date: 01/09/19 Stop Date: 01/10/19 Status: Discontinued Results BLOOD BANK RESULTS Most recent to 1 2 oldest [Reference Range]: ABO/Rh O NEG *Unknown* (01/09/19 10:34 AM) Antibody Scrn Negative (01/09/19 10:34 AM) FFP product Product available (01/09/19 2:40 PM) RBC product Product available (01/09/19 2:40 PM) ELECTROLYTES Most recent to 1 2 oldest [Reference Range]: Sodium Lvl [135-145 143 mEq/L 142 mEq/L mEq/L] (01/09/19 3:02 PM) (01/09/19 10:34 AM) Potassium Lvl 3.2 mEq/L 3.8 mEq/L [3.5-5.1 mEq/L] *LOW* (01/09/19 10:34 AM) (01/09/19 3:02 PM) Chloride Lvl [95-109 106 mEq/L 103 mEq/L mEq/L] (01/09/19 3:02 PM) (01/09/19 10:34 AM) CO2 [24-32 mEq/L] 28 mEq/L 30 mEq/L (01/09/19 3:02 PM) (01/09/19 10:34 AM) AGAP [10.0-20.0 12.2 mEq/L 12.8 mEq/L mEq/L] (01/09/19 3:02 PM) (01/09/19 10:34 AM) CHEM PANEL Most recent to 1 2 oldest [Reference Range]: Creatinine Lvl 1.48 mg/dL 1.71 mg/dL [0.50-1.40 mg/dL] *HI* *HI* (01/09/19 3:02 PM) (01/09/19 10:34 AM) eGFR 41 mL/min/1.73m2 1 35 mL/min/1.73m2 2 *NA* *NA* (01/09/19 3:02 PM) (01/09/19 10:34 AM) BUN [7-22 mg/dL] 28 mg/dL 30 mg/dL *HI* *HI* (01/09/19 3:02 PM) (01/09/19 10:34 AM) B/C Ratio [6-25] 19 (01/09/19 3:02 PM) Glucose Lvl [70-99 104 mg/dL 132 mg/dL mg/dL] *HI* *HI* (01/09/19 3:02 PM) (01/09/19 10:34 AM) Total Protein 6.3 g/dL [6.4-8.4 g/dL] *LOW* (01/09/19 3:02 PM) Albumin Lvl [3.5-5.0 3.0 g/dL g/dL] *LOW* (01/09/19 3:02 PM) Globulin [2.7-4.2 3.3 g/dL g/dL] (01/09/19 3:02 PM) A/G Ratio [0.7-1.6] 0.9 (01/09/19 3:02 PM) Calcium Lvl 8.3 mg/dL 9.2 mg/dL [8.5-10.5 mg/dL] *LOW* (01/09/19 10:34 AM) (01/09/19 3:02 PM) Magnesium Lvl 2.6 mg/dL [1.8-2.4 mg/dL] *HI* (01/09/19 3:02 PM) ALT [0-65 unit/L] 18 unit/L (01/09/19 3:02 PM) AST [0-37 unit/L] 24 unit/L (01/09/19 3:02 PM) Alk Phos [39-136 76 unit/L unit/L] (01/09/19 3:02 PM) Bili Total [0.2-1.3 0.8 mg/dL mg/dL] (01/09/19 3:02 PM) 1Result Comment: The eGFR is calculated [...] tiplied by the estimated BMI. CARDIAC ENZYMES Most recent to 1 2 oldest [Reference Range]: BNP [<=100 pg/mL] 704 pg/mL *HI* (01/09/19 3:02 PM) URINE AND STOOL Most recent to 1 2 oldest [Reference Range]: UA Turbidity [Clear] Marked *ABN* (01/09/19 2:40 PM) UA Color [Yellow] Yellow *NA* (01/09/19 2:40 PM) UA pH [5.0-8.0] 7.0 (01/09/19 2:40 PM) UA Spec Grav 1.016 [<=1.030] (01/09/19 2:40 PM) UA Glucose Negative [Negative] *NA* (01/09/19 2:40 PM) UA Blood [Negative] Negative (01/09/19 2:40 PM) UA Ketones Negative [Negative] *NA* (01/09/19 2:40 PM) UA Protein Negative [Negative] (01/09/19 2:40 PM) UA Urobilinogen <1.0 mg/dL [0.1-1.0 mg/dL] (01/09/19 2:40 PM) UA Bili [Negative] Negative *NA* (01/09/19 2:40 PM) UA Leuk Est Trace [Negative] *ABN* (01/09/19 2:40 PM) UA Nitrite Negative [Negative] (01/09/19 2:40 PM) UA WBC [0-5 /HPF] 1 /HPF (01/09/19 2:40 PM) UA RBC [0-2 /HPF] 1 /HPF (01/09/19 2:40 PM) UA Bacteria [None Occasional /HPF Seen /HPF] *NA* (01/09/19 2:40 PM) UA Sq Epi [Few /LPF] Occasional /LPF *NA* (01/09/19 2:40 PM) UA Hyal Cast [0-2 2 /LPF /LPF] (01/09/19 2:40 PM) UA Amorph Angelica [None Few /HPF Seen /HPF] *NA* (01/09/19 2:40 PM) HEMATOLOGY Most recent to 1 2 oldest [Reference Range]: WBC [3.7-10.4 K/CMM] 6.3 K/CMM (01/09/19 10:34 AM) RBC [4.70-6.10 4.65 M/CMM M/CMM] *LOW* (01/09/19 10:34 AM) Hgb [14.0-18.0 g/dL] 13.2 g/dL *LOW* (01/09/19 10:34 AM) Hct [42.0-54.0 %] 40.1 % *LOW* (01/09/19 10:34 AM) MCV [80.0-94.0 fL] 86.3 fL (01/09/19 10:34 AM) MCH [27.0-31.0 pg] 28.5 pg (01/09/19 10:34 AM) MCHC [32.0-36.0 33.0 g/dL g/dL] (01/09/19 10:34 AM) RDW [11.5-14.5 %] 17.0 % *HI* (01/09/19 10:34 AM) MPV [7.4-10.4 fL] 9.2 fL (01/09/19 10:34 AM) Platelet [133-450 108 K/CMM K/CMM] *LOW* (01/09/19 10:34 AM) Segs [45.0-75.0 %] 60.2 % (01/09/19 10:34 AM) Lymphocytes 21.1 % [20.0-40.0 %] (01/09/19 10:34 AM) Monocytes [2.0-12.0 13.3 % %] *HI* (01/09/19 10:34 AM) Eosinophils [0.0-4.0 4.2 % %] *HI* (01/09/19 10:34 AM) Basophils [0.0-1.0 1.2 % %] *HI* (01/09/19 10:34 AM) Neutrophils # 3.8 K/CMM [1.5-8.1 K/CMM] (01/09/19 10:34 AM) Lymphocytes # 1.3 K/CMM [1.0-5.5 K/CMM] (01/09/19 10:34 AM) Monocytes # [0.0-0.8 0.8 K/CMM K/CMM] (01/09/19 10:34 AM) Eosinophils # 0.3 K/CMM [0.0-0.5 K/CMM] (01/09/19 10:34 AM) Basophils # [0.0-0.2 0.1 K/CMM K/CMM] (01/09/19 10:34 AM) PT [12.0-14.7 15.8 seconds seconds] *HI* (01/09/19 10:34 AM) INR [0.85-1.17] 1.29 *HI* (01/09/19 10:34 AM) PTT [22.9-35.8 31.1 seconds seconds] (01/09/19 10:34 AM) Immunizations No data available for this section [...] No entered on: 01/11/19 Assessment and Plan No data available for this section
--- OUTSIDE RECORDS SUMMARY | 2019-01-27 00:01 | XMS REPORT | Summary of Care ---
Author Author [facility] Organization [facility] Address Unknown Phone Unavailable Encounter [facility] Encntr_lydia(FIN) [id number] Date(s): 08/31/16 - 08/31/16 [facility] [address] [place] [address] [phone] Discharge Disposition: Home or Self Care Attending Physician: Robin Fritz MD Vital Signs No data available for this section Problem List Condition Effective Dates Status Health Status Informant Acute heart Resolved failure(Confirmed)1 GERD - Active Gastro-esophageal reflux disease(Confirmed) 1open bypass surgery Allergies, Adverse Reactions, Alerts Substance Reaction Severity Status NKDA Active Medications No data available for this section Results No data available for this section Immunizations No data available for this section Procedures Procedure Date Related Diagnosis Body Site Cardiac revascularization with bypass anastomosis Social History No data available for this section Assessment and Plan No data available for this section
--- OUTSIDE RECORDS SUMMARY | 2019-01-27 00:01 | XMS REPORT | Summary of Care ---
Author Author JAMIE NAGEL N.P. Organization Unknown Address Unknown Phone Unavailable Care Team Providers Care Dental Chair Assembler Name Role Phone JAMIE NAGEL N.P. 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 * Refills: 0 Active Co Q-10 100 MG Oral Capsule TAKE 1 CAPSULE DAILY * Refills: 0 Active Tamsulosin HCl - 0.4 MG Oral Capsule TAKE 1 CAPSULE DAILY * Refills: 0 Active Indapamide 1.25 MG Oral Tablet TAKE 1 TABLET ONCE DAILY. * Refills: 0 Active Nitrostat 0.4 MG Sublingual Tablet Sublingual TAKE DIRECTED. * Refills: 0 Active Simvastatin 40 MG Oral Tablet TAKE 1 TABLET DAILY IN THE EVENING. * Refills: 0 Active Januvia 50 MG Oral Tablet TAKE 1 TABLET DAILY. * Refills: 0 Active Xarelto 20 MG Oral Tablet TAKE 1 TABLET DAILY * Refills: 0 Active Furosemide 40 MG Oral Tablet TAKE 1 TABLET DAILY. * Refills: 0 Active Aspirin 81 MG Oral Tablet Delayed Release TAKE 1 TABLET DAILY. * Refills: 0 Active Clopidogrel Bisulfate 75 MG Oral Tablet TAKE 1 TABLET DAILY. * Refills: 0 Active 30 Tablet Bottle Levemir 100 UNIT/ML Subcutaneous Solution INJECT 53 UNIT Bedtime * Refills: 0 Active 10 ML Vial Allergies and Adverse Reactions Name Dates Details No Known Drug Allergies (Allergy) Status: Active Procedures Procedure Dates Details Complete PFTs w/DLCO and Lung Volumes Date: 21-Dec-2018 [N] 2D Echo complete, with Doppler 24583 Date: 15-Jan-2019 Immunization Name Dates Details Immunizations not documented Social History Name Dates Details Unknown if ever smoked Vital Signs Date Test Result Details [id number] BP Systolic 145 mm[Hg] Status: Comments: Location: LUE; Position: Sitting BP Diastolic 76 mm[Hg] Status: Comments: Location: LUE; Position: Sitting Height 73.5 in Status: Weight 223.125 lb Status: Body Mass Index Calculated 29.04 kg/m2 Status: Body Surface Area Calculated 2.27 m2 Status: Heart Rate 72 /min Status: Comments: Location: L Radial; Results Date Description Value Details [id number] Tobacco Use Screening Completed DONE [id number] CTA Heart/Coronary art TAVR [id number] Heart/Coronary art TAVR CTA SEE NOTES Comments: EXAM: CTA HEART WITH CONTRASTDATE: 12/27/2018 12:51 CSTINDICATION: - aortic stenosis. Aortic stenosis.COMPARISON: No available prior cardiac CTA for comparisonTECHNIQUE:Contrast imaging was performed on a [employer] [address] scannerutilizing a single breath hold, at 750 mA and 120 kVp. Retrospective ECG gatingwas performed, at a heart rate of 56 bpm. Images were reformatted at 0.5 mmintervals and sent to the [employer] workstation for interpretation of bothsystolic and diastolic phases.IV contrast: 80 mL of Visipaque 320 contrast was delivered intravenously at 5mL/sec followed by a 50 mL normal saline bolus chaser.DLP: 555 mGy-cmSTUDY QUALITY: GoodFINDINGS:Aortic root landmarks (dimensions determined in systolic phases)Aortic valve: Trifleaflet: asymmetricallycalcified; bulky leaflet: No;r ight/left/noncoronaryAortic annulus: 28 x 24 mm; average 25 mm; area 5 sq cm; circumference 82 mmSino-tubular junction: 30 x 28 mm; average 29 mmAo annulus to coronary height: left main: 16 mm; right: 16 mmAo annulus to STJ length: 23 mmSinuses of Valsalva: width 34 mmAscending aorta width at 40 mm from annulus: 37 mmDescending thoracic aorta: width: 32 mmCoplanar TAVR angle: JAPANESE 10 and CRANIAL 3Coronary Arteries:This patient has a right dominant system, with normal origins of the coronaryarteries. Dense calcifications are seen along the 3 coronary artery. Statuspost coronary artery bypass graft with great saphenous vein graft to OM2. Thegraft is patent. ROCHA graft is also noted to the distal portion of the leftanterior descending coronary artery which also appears patent.Basal septal hypertrophy: NoSevere hypertrophy (1.5 cm wall thickness): NoIntracardiac masses: NoOther cardiac findings:Pacemaker: NoArtificial valve: No; Location: N/AIntracardiac closure device: NoMild mitral and calcificatio ns.Left ventricular function:Left ventricular ejection fraction: 41%Left ventricular end-diastolic volume: 145 mLLeft ventricular end-systolic volume: 85 mLLeft ventricular stroke volume: 60 mLNoncardiac findings coronal andSmall sliding hiatal hernia is noted.IMPRESSION:1. Trileaflet symmetrically calcified aortic valve and with aortic annularmeasurements as described above.2. Mildly depressed left ventricular function with LVEF of 41%.3. Small sliding hiatal hernia is noted.4. Scattered dense calcifications are seen along the 3 coronary arteries,status post coronary artery bypass graft with postsurgical changes. The LIMAgraft and GSV to OM2 are patent.--Read by: Rajeev Vizcaino MDDictated Date/time: 12/29/18 08:14Electronically Signed by: Rajeev Vizcaino MD 12/29/1908:13FINAL REPORT [id number] CTA Chest/Abd/Pelvis TAVR [id number] Chest/Abd/Pelvis TAVR CTA SEE NOTES Comments: EXAM: VIR CT angiogram thorax abdomen and pelvis. TAVR protocolINDICATION: 88 years old Male with aortic stenosisTECHNIQUE: Following the administration of intravenous contrast, 3 mm slicesfrom the thoracic inlet through the pubic symphysis were obtained in arterialphase. Images are reviewed on 3D workstation.COMPARISON: NoneFINDINGS:Vascular Measurements:Ascending aorta: 38 mm x 38 mmAortic arch: 34 mmMid-descending thoracic aorta: 33 mm x 32 mmAorta at diaphragm: 26 mm x 27 mmAorta at celiac axis: 26 mm x 28 mmAorta at superior mesenteric artery: 25 mm x 28 mmMid-infrarenal aorta: 26 mm x 23 mmRight common iliac artery: 14 mm x 18 mmRight external iliac artery: 11 mm x 9 mmRight common femoral artery: 12 mm x 11 mmLeft common iliac artery: 13 mm x 13 mmLeft external iliac artery: 12 mm x 9 mmLeft common femoral artery: 14 mm x 13 mmRight subclavian artery: 11 mm x 13 mmLeft subclavian artery: 13 mm x 11 mmCalcific scores:Ascending aorta: 0Aortic arch: 1Descending thoracic aorta: 2Aorta at diaphragm: 2Suprarenal abdominal aorta: 3Infrarenal abdominal aorta: 30 :none1 :punctate calcifications2 : <50% of vessel circumference is confluent calcification3 : >50% of vessel circumference is confluent calcificationAscending aorta: UnremarkableAortic arch: UnremarkableDescending aorta: UnremarkableAbdominal aorta: UnremarkableCeliac axis: 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 RestunremarkableSuperior mesenteric artery: Unremarkable, branches appear normalInferior mesenteric artery: UnremarkableRenal arteries: Bilateral single. UnremarkableBilateral common clemencia ac, internal and external iliac arteries: UnremarkableBilateral common femoral arteries: UnremarkableNonvascular findings:Heart and mediastinum: Aortic valve and coronary calcification.Lung parenchyma: UnremarkablePleural and pericardial spaces: UnremarkableChest wall and soft tissue: UnremarkableHepatobiliary: UnremarkableGallbladder: Unremarkable, calcification along the gallbladder wall, couldrepresent small gallbladder calculi.Pancreas: UnremarkableSpleen: UnremarkableSuprarenal glands: UnremarkableKidneys: Multiple simple cysts involving the left kidney measuring 1.6 cm atthe largestBladder: No rmal.Reproductive organs: NormalGastrointestinal tract:Stomach: Normal.Small bowel: Normal.Colon: Diverticular disease without evidence of diverticulitisAppendix: Normal.Peritoneum, mesentery and retroperitoneum: No free air, ascites or loculatedfluid.Lymph nodes: Normal.Bones: No acute abnormality.Soft tissues: Normal. Hiatal hernia presentImpression:1. CTA performed for TAVR planning, with measurements as indicated above.2. 50-60% stenosis involving the origin of the celiac axis3. Large hiatal hernia.4. Diverticular disease involving the sigmoid colonI have reviewed these images and agree with the above findings.--This report was dictated by a Painting Trades Worker/Fellow/Physician Leather Craftsman. Karen personallyreviewed the images as well as the interpretation and agree with the findings.Read by: Hayley Davis MD Resident/Fellow/PhysicianAssistant: Hayley Davis MDDictated Date/time: 12/28/18 13:57Electronically Signed by: Tee Mix MD 12/30/1906:29FINAL REPORT Plan of Care Name Dates Details Planned Observations [N] 2D Echo complete, with Doppler [id number] On: 15-Jan-2019 Intent Planned Goals not documented Planned Encounters Appointment; SUSANA CARDENAS On: 14-Feb-2019 11:00 Appointment; PEDRO MERCEDES M.D. On: 14-Feb-2019 13:20 Instructions Name Dates Details Instructions not documented Encounters Appointment; RAMY CARDENAS Encounter Diagnosis: Problem not documented On: 24-Nov-2018 8:30 Appointment; SUSANA CARDENAS Encounter Diagnosis: Problem not documented On: 27-Dec-2018 8:00 Appointment; PEDRO MERCEDES M.D. Encounter Diagnosis: Problem not documented On: 27-Dec-2018 9:20 Appointment; DEREK CARDENAS Encounter Diagnosis: Problem not documented On: 27-Dec-2018 11:00 Appointment; PROCEDURES, CARDIO Encounter Diagnosis: Problem not documented On: 11-Jan-2019 11:00
--- NOTE | 2019-01-27 01:08 | Diagnostic Imaging Report ---
EXAMINATION: PA and lateral views of the chest. COMPARISON: Portable chest 03/05/2018 CLINICAL HISTORY: Hypotension, status post aortic valve replacement 2 weeks ago DISCUSSION: Lines/tubes: None. Lungs: The lungs are well inflated and clear. There is no evidence of pneumonia or pulmonary edema. Pleura: There is no pleural effusion or pneumothorax. Heart and mediastinum: Cardiac silhouette is borderline enlarged. Aortic valve prosthesis in place. Pulmonary vasculature is normal. Bones and soft tissues: No acute bony abnormalities. Mild degenerative changes in the thoracic spine IMPRESSION: No acute cardiopulmonary abnormalities. Signed by: Dr. aKi Miner M.D. on 01/27/2019 1:05 AM
[2019-01-27 01:18] LABS: BASOPHILS % 0.6 % (0.0-1.0); EOSINOPHILS # (AUTO) 0.2 (0.0-0.4); EOSINOPHILS % 3.2 % (0.0-6.0); HEMATOCRIT 39.2 % (38.2-49.6); HEMOGLOBIN 12.8 g/dL (14.0-18.0); LYMPHOCYTES # (AUTO) 0.9 (1.0-3.2); LYMPHOCYTES % 18.3 % (18.0-39.1); MEAN CORPUSCULAR HEMOGLOBIN 27.5 pg (28-32); MEAN CORPUSCULAR HGB CONC 32.7 g/dL (31-35); MEAN CORPUSCULAR VOLUME 84.3 fL (81-99); MONOCYTES # (AUTO) 0.9 (0.2-0.8); MONOCYTES % 17.1 % (4.4-11.3); NEUTROPHILS % 60.6 % (38.7-80.0); PLATELET COUNT 105 x10e3/uL (140-360); RED BLOOD COUNT 4.65 x10e6/uL (4.3-5.7); RED CELL DISTRIBUTION WIDTH 17.5 % (11.7-14.4)
[2019-01-27 01:26] LABS: INR 1.87; PROTHROMBIN TIME 22.2 seconds (11.9-14.5)
[2019-01-27 01:27] LABS: PARTIAL THROMBOPLASTIN TIME 38.4 seconds (23.8-35.5)
[2019-01-27 01:36] LABS: ALBUMIN 3.4 g/dL (3.5-5.0); ALBUMIN/GLOBULIN RATIO 1.1 (0.8-2.0); ANION GAP 12.2 mmol/L (8-16); CALCIUM 9.7 mg/dL (8.4-10.2); CREATININE, SERUM 1.81 mg/dL (0.72-1.25); POTASSIUM 4.2 mmol/L (3.5-5.1)
[2019-01-27] MEDS ORDERED: ALLOPURINOL100 MG PO (02:18)
[2019-01-27] MEDS ORDERED: SIMVASTATIN40 MG PO (02:18)
[2019-01-27] MEDS ORDERED: FLOMAX0.4 MG PO (02:18)
[2019-01-27] MEDS ORDERED: XARELTO15 MG PO (02:18)
[2019-01-27] MEDS ORDERED: INDAPAMIDE1.25 MG PO (02:18)
[2019-01-27] MEDS ORDERED: CLOPIDOGREL75 MG PO (02:30)
[2019-01-27] MEDS ORDERED: ASPIR 8181 MG PO (02:30)
[2019-01-27 02:33] LABS: CREATINE KINASE MB 1.3 ng/mL (0-5.0)
[2019-01-27 05:26] VITALS: BP 149/68
[2019-01-27 05:30] VITALS: BP 149/68
--- NOTE | 2019-01-27 06:45 | NUR ---
rounded with weight shifter nurse, patient resting comfortably with at bedside. Call alvarado within reach and bed in lowest position.
--- NOTE | 2019-01-27 07:08 | NUR ---
REPORT GIVEN TO ONCOMING NURSE.PT RESTING IN BED WITH NO S/S OF DISTRESS.
[2019-01-27 07:45] VITALS: BP 132/59
[2019-01-27 08:30] VITALS: BP 132/59
[2019-01-27 08:42] LABS: CREATINE KINASE MB 1.3 ng/mL (0-5.0)
[2019-01-27 12:30] VITALS: BP 124/60
--- NOTE | 2019-01-27 14:25 | NUR ---
discharge instructions given at this time, patient and daughter verbalized understanding. IV discontinued, catheter in tact and pressure dressing applied. Patient to leave unit via wheelchair to personal auto for daughter to drive home
--- NOTE | 2019-01-27 15:23 | NUR ---
[place] letter given to patient in the morning. Signed by daughter and copy placed in chart
[2019-01-27] MEDS ORDERED: BRINZOLAMIDE 1% OPTH SUSP 10 ML BTL OS SCH (17:00)
[2019-01-27] MEDS ORDERED: RIVAROXABAN 15 MG TABLET PO SCH (17:00)
[2019-01-27] MEDS ORDERED: ALLOPURINOL 100 MG TAB PO SCH (17:00)
[2019-01-27] MEDS ORDERED: BRIMONIDINE/TIMOLOL (OPTH SOLN 5 ML DRPETTE OP SCH (17:00)
--- NOTE | 2019-01-27 19:14 | History and Physical ---
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 HISTORY OF PRESENT ILLNESS: The patient reports he has felt constantly being tired all day long and his checked his blood pressure and found it was about 89 systolic. They did check fingerstick blood sugars through the day and found they were between 100 and 200. He denies any chest pain, palpitations, burning on urination, or fever. PAST MEDICAL HISTORY: Most significant for recent transaortic valve replacement on January 11, 2019 with a 23 mm [place] valve [address] Dr. Arredondo. PAST SURGICAL HISTORY: Also significant for coronary artery bypass graft surgery in 2007, longstanding type 2 adult onset diabetes. He had balloon angioplasty of his ROCHA graft on December 06, 2018. He has known mild renal insufficiency. Remote appendectomy, bypass graft surgery was on March 28, 2008. HOME MEDICATIONS: Recent home medications include Travatan drops, Azopt suspension, Combigan drops, Centrum Silver, CoQ10, tamsulosin 0.4 mg daily, indapamide 1.25 mg daily, simvastatin 40 mg daily, Januvia 50 mg once a day, furosemide 40 mg daily, aspirin 81 mg daily, Clopidogrel 75 mg daily, Levemir 153 units subcutaneous once a day, allopurinol 100 mg half tablet daily, prednisone 20 mg one and half tablets daily, and rivaroxaban 15 mg daily. PERSONAL AND SOCIAL HISTORY: He does not smoke or drink. 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 FAMILY HISTORY: Father at 67 with peripheral vascular disease and myocardial infarction. ALLERGIES: HE HAS NO ALLERGIES. PHYSICAL EXAMINATION: GENERAL: Shows a pleasant, alert man. VITAL SIGNS: Blood pressure 110/70, pulse 70 and regular. HEAD, EYES, EARS, NOSE, AND THROAT: Unremarkable. NECK: No jugular venous distention of thorax. HEART: Sounds S1, S2 are equal. No murmurs. LUNGS: Clear. There is healed midline sternotomy. ABDOMEN: Protuberant. EXTREMITIES: No cyanosis, clubbing, or edema. EKG shows sinus rhythm. INITIAL LABORATORY STUDIES: Relatively unrevealing with a white count of 4.97, hemoglobin 12.8, creatinine 1.8. INR 1.8. ASSESSMENT: Hypotension may be related to resumption of losartan 50 mg while he was in [facility] with his aortic valve replacement. We will monitor him for any arrhythmia or other problem overnight. MD SHAGGY Duarte/LANI /[id number]
--- NOTE | 2019-01-27 19:39 | Discharge Summary ---
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 He presented to the emergency room with a complaint of fatigue and hypotension. HOSPITAL COURSE: The patient was marked overnight where he remained in sinus rhythm, comfortable. No complaint whatsoever. No fever. His blood count does not show any anemia. Creatinine 1.8, it is consistent with his baseline creatinine. Today, his blood pressure is 132/59. Blood sugars are acceptable. He is discharged home to discontinue his losartan that had recently been added at [facility]. He is instructed to be careful to eat three meals a day and check blood sugars and blood pressure. He will follow up in the office in one week. DISCHARGE DIAGNOSES: 1. Hypotension, etiology not clear. 2. Recent transaortic valve replacement. 3. Recent coronary balloon angioplasty. 4. Long-standing type 2 adult onset diabetes. MD SHAGGY Duarte/LANI /[id number]
[2019-01-27] MEDS ORDERED: SIMVASTATIN 40 MG TAB PO SCH (21:00)
[2019-01-27] MEDS ORDERED: TRAVOPROST(OPTH) 2.5 ML BTL OP SCH (21:00)
[2019-01-28] MEDS ORDERED: ASPIRIN 81 MG CHEW TAB PO SCH (09:00)
[2019-01-28] MEDS ORDERED: TAMSULOSIN HCL 0.4 MG CAP PO SCH (09:00)
[2019-01-28] MEDS ORDERED: FUROSEMIDE 40 MG TAB PO SCH (09:00)
[2019-01-28] MEDS ORDERED: CLOPIDOGREL BISULFATE 75 MG TAB PO SCH (09:00)
== END 2019-01-27 14:29 | disposition home or self-care (01) ==
LOC: ER 23:56 → ERHOLD 01-27 02:33 → IMCU 01-27 05:17
PROVIDERS: ADMIT Internal Medicine Cardiovascular Disease; ATTEND Internal Medicine Cardiovascular Disease
DX: I95.9 Hypotension, unspecified (principal); R42 Dizziness and giddiness; Z95.2 Presence of prosthetic heart valve; Z95.1 Presence of aortocoronary bypass graft; E11.9 Type 2 diabetes mellitus without complications; Z82.49 Family history of ischemic heart disease and other diseases of the circulatory system; Z79.82 Long term (current) use of aspirin
CPT/HCPCS: 36415; 71046; 80053; 82550; 82553; 82948; 83880; 84484; 85025; 85610; 85730; 93005; 93306; 99284; G0378

== ENCOUNTER 2019-03-21 15:54 | Emergency (ER) | payer MEDICARE, BC ==
[~2019-03-21] VITALS: Ht 185.4 cm; Wt 100.7 kg
[~2019-03-21 15:54] MED LIST changes: +ALLOPURINOL100 MG PO; +ASPIR 8181 MG PO; +CLOPIDOGREL75 MG PO; +FLOMAX0.4 MG PO; +INDAPAMIDE1.25 MG PO; +SIMVASTATIN40 MG PO
--- OUTSIDE RECORDS SUMMARY | 2019-03-21 15:58 | XMS REPORT | Continuity of Care Document ---
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 Coronary artery disease Resolved Problem 01/15/2019 [facility] Diabetes Resolved Problem 01/15/2019 [facility] GERD - Gastro-esophageal reflux disease Active Problem 01/15/2019 [facility] HTN (<span [id number]">Confirmed</span>) Resolved Problem 01/15/2019 [facility] Skin cancer of nose Resolved Problem 01/15/2019 [facility] Bronchitis Active Problem 01/27/2019 [facility] Dizziness Active Problem 01/27/2019 [facility] TIA Active Problem 01/27/2019 [facility] Weakness Active Problem 01/27/2019 [facility] NONRHEUMATIC AORTIC (VALVE) STENOSIS Active [facility] Medications Medication Details Route Status Patient Instructions Ordering Provider Order Date Source Losartan Potassium 50 Mg Tablet, 50 Mg Oral Daily Active 01/27/2019 [facility] allopurinol 100 mg oral tablet 50 mg=0.5 tab, PO, Daily, # 30 tab, 2 Refill(s) Active 01/13/2019 [facility] predniSONE 20 mg oral tablet 30 mg=1.5 tab, PO, Daily, X 7 day, # 11 tab, 0 Refill(s) Active 01/13/2019 [facility] Furosemide 40 MG Oral Tablet [Lasix] 40 mg, 1 tab, Route: PO, Drug form: TAB, ONCE, Dosing Weight 108.778, kg, Start date: 01/13/19 9:31:00 [employer], Stop date: 01/13/19 9:31:00 CSTNotes: (Same as: Lasix) May cause GI upset. Give with food or milk. Inactive 01/13/2019 [facility] Furosemide 40 MG Oral Tablet [Lasix] 40 mg=1 tab, PO, Daily, # 90 tab, 1 Refill(s) Active 01/13/2019 [facility] Magnesium Sulfate 2 gm, 50 mL, Route: IVPB, Drug form: INJ, PRN, Dosing Weight 108.778, kg, PRN Abnormal Lab Result, For NON-ICU Patients Only., Start date: 01/13/19 7:16:00 [employer], Duration: 30 day, Stop date: 02/12/19 8:15:00 CDTNotes: WASTE: F/P - Sink; E - Municipal Trash Bin Inactive 01/13/2019 [facility] sodium phosphate 30 mmol, 10 mL, Route: IVPB, PRN, Dosing Weight 108.778, kg, PRN Abnormal Lab Result, For NON-ICU Patients Only., Start date: 01/13/19 7:16:00 [employer], Duration: 30 day, Stop date: 02/12/19 8:15:00 CDTNo amaya: Infuse over 4 hour. Do not infuse phosphorous concurrently in the same line as TPN or IVF that contains calcium. For double lumen central lines, phosphorous may be infused in a separate lumen from TPN. Inactive 01/13/2019 [facility] potassium phosphate 30 mmol, 10 mL, Route: IVPB, PRN, Dosing Weight 108.778, kg, PRN Abnormal Lab Result, For NON-ICU Patients Only., Start date: 01/13/19 7:16:00 [employer], Duration: 30 day, Stop date: 02/12/19 8:15:00 CDTNo amaya: (Same as: K Phosphate.) Do not infuse phosphorous concurrently in the same line as TPN or IVF that contains calcium. For double lumen central lines, phosphorous may be infused in a separate lumen from TPN. 1 mMol phoshate has 1.47 mEq potassium Infuse over 4 hours Inactive 01/13/2019 [facility] Calcium Gluconate 3 gm, 30 mL, Route: IVPB, PRN, Dosing Weight 108.778, kg, PRN Abnormal Lab Result, For NON-ICU Patients Only., Start date: 01/13/19 7:16:00 [employer], Duration: 30 day, Stop date: 02/12/19 8:15:00 CDTNotes: WASTE: F/P - Sink; E - Municipal Trash Bin Inactive 01/13/2019 [facility] Magnesium Oxide 800 mg, 2 tab, Route: PO, Drug form: TAB, PRN, Dosing Weight 108.778, kg, PRN Abnormal Lab Result, For NON-ICU Patients Only., Start date: 01/13/19 7:16:00 [employer], Duration: 30 day, Stop date: 02/12/19 8:15:00 CDTNotes: (Same as: Mag-Ox 400) Magnesium oxide [id number] elemental magnesium Dose=____mg magnesium oxide (___mg elemental magnesium) Inactive 01/13/2019 [facility] Potassium Chloride 20 mEq, 15 mL, Route: NJ, Drug form: LIQ, PRN, Dosing Weight 108.778, kg, PRN Abnormal Lab Result, For NON-ICU Patients Only, Start date: 01/13/19 7:16:00 [employer], Duration: 30 day, Stop date: 02/12/19 8:15:00 CDTNotes: (Same as: Potassium Chloride) Inactive 01/13/2019 [facility] potassium phosphate-sodium phosphate 250 mg-280 mg-160 mg oral powder for reconstitution 2 pkt, Route: PO, Drug Form: PDR/REC, Dosing Weight 108.778, kg, PRN, PRN Abnormal Lab Result, For NON-ICU Patients Only, Start date: 01/13/19 7:16:00 [employer], Duration: 30 day, Stop date: 02/12/19 8:15:00 CDTNotes: (Same as: Phos-NaK) Each 1.5 gm pkt has 250mg phosphorous. Mix w/2.5oz water and stir. Inactive 01/13/2019 [facility] Xarelto 15 mg, 1 tab, Route: PO, Drug form: TAB, QPM, Dosing Weight 100.455, kg, Start date: 01/12/19 17:00:00 [employer], Duration: 30 day, Stop date: 02/10/19 17:00:00 CDTNotes: (Same as: Xarelto) Administer with food No Longer Active 01/12/2019 [facility] clopidogrel 75 MG Oral Tablet [Plavix] 75 mg=1 tab, PO, Daily, # 30 tab, 2 Refill(s) Active 01/12/2019 [facility] losartan 50 mg oral tablet 50 mg=1 tab, PO, Daily, # 30 tab, 2 Refill(s) Active 01/12/2019 [facility] rivaroxaban 15 mg oral tablet 15 mg=1 tab, PO, QPM, # 30 tab, 3 Refill(s) Active 01/12/2019 [facility] Insulin regular 2 unit, 0.02 mL, Route: SUB-Q, Drug form: SOLN, TID-Before Meals, Dosing Weight 100.455, kg, PRN Blood Glucose Results, Start date: 01/12/19 12:43:00 [employer], Duration: 30 day, Stop date: 02/11/19 12:42: 00 CDTNotes: (Same as: Humulin R) Roll in palms of hands gently; Do not shake vigorously. "single patient use only" (Restricted to patients requiring a dose > 60 units) WASTE: F/P - Black; E - [employer] Trash Bin Stable for 28 days at room temperature Expires in days from Date No Longer Active 01/12/2019 [facility] Dextrose 50% Syringe 12.5 gm, 25 mL, Route: IVP, Drug Form: INJ, Dosing Weight 100.455, kg, PRN, PRN Blood Glucose Results, Start date: 01/12/19 12:43:00 [employer], Duration: 30 day, Stop date: 02/11/19 13:42:00 CDT No Longer Active 01/12/2019 [facility] Glucagon 1 mg, Route: IM, Drug form: PDR/INJ, PRN, Dosing Weight 100.455, kg, PRN Blood Glucose Results, Start date: 01/12/19 12:43:00 [employer], Duration: 30 day, Stop date: 02/11/19 13:42:00 CDT No Longer Active 01/12/2019 [facility] Losartan 50 mg, 1 tab, Route: PO, Drug form: TAB, Daily, Dosing Weight 100.455, kg, Start date: 01/12/19 9:39:00 [employer], Duration: 30 day, Stop date: 02/11/19 9:00:00 CDTNotes: (Same as: Cozaar) No Longer Active 01/12/2019 [facility] Plavix 75 mg, 1 tab, Route: PO, Drug form: TAB, Daily, Dosing Weight 100.455, kg, Start date: 01/12/19 9:00:00 [employer] P[employer], Duration: 30 day, Stop date: 02/10/19 9:00:00 CDTNotes: (Same As: Plavix) No Longer Active 01/12/2019 [facility] Protonix 40 mg, 1 tab, Route: PO, Drug form: ECTAB, Before Breakfast, Dosing Weight 100.455, kg, Start date: 01/12/19 7:30:00 B[employer], Duration: 30 day, Stop date: 02/10/19 7:30:00 CDTNotes: Tablet should not be chewed or crushed. (Same as: Protonix) No Longer Active 01/12/2019 [facility] NIFEdipine 60 mg oral tablet, extended release 60 mg, 1 tab, Route: PO, Drug form: ERTAB, ONCE, Dosing Weight 100.455, kg, Start date: 01/12/19 0:49:00 B[employer], Stop date: 01/12/19 0:49:00 CSTNotes: (Same as: Adalat CC, Procardia XL) Give on empty stomach. Take 1 hour before or 2 hours after meal; "Avoid grapefruit and grapefruit juice". Do not crush Inactive 01/12/2019 [facility] Saline Flush 0.9% 10 ml, Route: IVP, Drug Form: INJ, Dosing Weight 100.455, kg, Q12H, Start date: 01/11/19 21:00:00 B[employer], Duration: 30 day, Stop date: 02/10/19 9:00:00 CDTNotes: (Same as: BD Posiflush) No Longer Active 01/12/2019 [facility] insulin glargine 53 unit, 0.53 mL, Route: SUB-Q, Drug form: SOLN, Bedtime, Start date: 01/11/19 21:00:00 B[employer] P[employer], Duration: 30 day, Stop date: 02/09/19 21:00:00 CDTNotes: Same as: Lanrashadus) Do not hold insulin without contact ing prescriber WASTE: F/P - Black; E - Municipal Trash Bin No Longer Active 01/12/2019 [facility] Levemir 53 unit, Route: SUB-Q, Bedtime, Dosing Weight 100.455, kg, Start date: 01/11/19 21:00:00 [employer], Duration: 30 day, Stop date: 02/09/19 21:00:00 CDT Inactive 01/12/2019 [facility] Cefazolin 1 gm, Route: IVPB, Q8H, Dosing Weight 100.455, kg, Start date: 01/11/19 16:00:00 [employer], Duration: 1 doses or times, Stop date: 01/11/19 16:00:00 [employer], ABX Indication: Surgical ProphylaxisNotes: (Same As: Kathleen idLeydi ordonez) MEDICATION WASTE Product Size: 1000 mg Product Wasted: ___ mg Inactive 01/11/2019 [facility] normal saline 0.9% IV 250 mL 250 mL, Rate: 250 ml/hr, Infuse over: 1 hr, Route: IV, Dosing Weight 100.455 kg, Total Volume: 250, Start date: 01/11/19 14:25:00 B[employer] P[employer], Stop date: 01/26/19 14:56:00 CDT, 2.27, m2 No Longer Active 01/11/2019 [facility] Prednisone 30 mg, 3 tab, Route: PO, Drug form: TAB, Daily, Dosing Weight 100.455, kg, Start date: 01/11/19 14:00:00 B[employer]ING P[employer] M[employer]ER, Duration: 3 day, Stop date: 01/14/19 9:00:00 CDTNotes: (Same as: PredniSONE) Take with food. No Longer Active 01/11/2019 [facility] NIFEdipine 30 mg oral tablet, extended release 30 mg, 1 tab, Route: PO, Drug form: ERTAB, ONCE, Dosing Weight 100.455, kg, Start date: 01/11/19 13:16:00 B[employer]ING P[employer] M[employer], Stop date: 01/11/19 13:16:00 CSTNotes: (Same as: Adalat CC, Procardia XL) Give on empty stomach. Take 1 hour before or 2 hours after meal; "Avoid grapefruit and grapefruit juice". Do not crush Inactive 01/11/2019 [facility] Saline Flush 0.9% 10 ml, Route: IVP, Drug Form: INJ, Dosing Weight 100.455, kg, PRN, PRN Line Flush, Start date: 01/11/19 12:58:00 B[employer]ING P[employer] M[employer]ER, Duration: 30 day, Stop date: 02/10/19 13:57:00 CDTNotes: (Same as: BD Posiflush) No Longer Active 01/11/2019 [facility] Nystatin 100 UNT/MG Topical Powder 1 appl, Route: TOP, PRN, Drug form: PWDR, PRN For Fungal Prophylaxis, Start date: 01/11/19 12:58:00 B[employer]ING P[employer] M[employer]ER, Duration: 30 day, Stop date: 02/10/19 13:57:00 CDTNotes: (Same as:Mycostatin, Nilstat) For external use only. No Longer Active 01/11/2019 [facility] POLYETHYLENE GLYCOL 3350 17 gm, 1 pkt, Route: PO, Drug form: PWDR, Daily, Dosing Weight 100.455, kg, Start date: 01/11/19 9:00:00 B[employer] P[employer], Duration: 30 day, Stop date: 02/09/19 9:00:00 CDTNotes: Dissolve in 8 oz of water or juice. (Same as: Miralax) No Longer Active 01/11/2019 [facility] Docusate 100 mg, 1 cap, Route: PO, Drug form: CAP, Q12H, Dosing Weight 100.455, kg, Start date: 01/11/19 9:00:00 B[employer]ING P[employer], Duration: 30 day, Stop date: 02/09/19 21:00:00 CDTNotes: (Same as: Colace) (Do Not Crush) No Longer Active 01/11/2019 [facility] Nicardipine 40 mg, 200 mL, Rate: Titrate, Start Dose: 5 mg/hr, Titration: 2mg every 15 minutes PRN, Goal(s): maintain MAP 75-85 mmHg, Max Dose: 15mg/hr, Route: IV, Dosing Weight 100.455 kg, Total Volume: 200, Start date: 01/11/19 8:33:00 BAKING P[employer] MIXER, Duration: 30 day, St...Notes: Same as: Cardene Concentration: (0.2 mg /1 ml ) Inactive 01/11/2019 [facility] Acetaminophen 1,000 mg, 100 mL, Route: IVPB, Drug form: INJ, ONCE, Dosing Weight 100.455, kg, PRN Pain Score 1-3, Start date: 01/11/19 8:33:00 CSTNotes: Infuse over 15 minutes Do not exceed 4gm/day of acetaminophen MEDICATION WASTE Product Size: 1000 mg Product Wasted: ___ mg Inactive 01/11/2019 [facility] Ondansetron 4 mg, 2 mL, Route: IVP, Drug form: INJ, Q8H, Dosing Weight 100.455, kg, PRN Nausea & Vomiting, Start date: 01/11/19 8:33:00 B[employer] P[employer], Duration: 30 day, Stop date: 02/10/19 8:32:00 CDTNotes: (Same as: Zofran) MEDICATION WASTE Product Size: 4 mg Product Wasted: ___ mg No Longer Active 01/11/2019 [facility] Sodium Chloride 0.9% (Bolus) IV 250 mL, 250 ml/hr, Infuse Over: 1 hr, Route: IV, 250, Drug form: INJ, ONCALL, Priority: Routine, Dosing Weight 98.182 kg, Start date: 01/11/19 6:00:00 B[employer]ING P[employer] M[employer]ER, Duration: 1 doses or times Inactive 01/11/2019 [facility] Exparel 20 mL, Route: InFILtration(local), Drug Form: INJ, Dosing Weight 98.182, kg, ONCALL, control panel tester to prosthetic lab technician, Start date: 01/11/19 6:00:00 B[employer]ING P[employer]DER M[employer]ER, Duration: 1 day, Stop date: 01/12/19 5:59:00 [...] mL [266 mg]) No Longer Active 01/11/2019 [facility] Sodium Chloride 0.9% (titrate) 250 mL 250 mL, Rate: To prime line and flush remaining blood products., Dosing Weight 98.182, kg, Route: IV, Total Volume: 250, Start Date: 01/11/19 5:45:00 B[employer]ING P[employer] M[employer]ER, Duration: 30 day, Stop date: 02/10/19 5:44:00 CDT, Replace Every: 24 hr No Longer Active 01/11/2019 [facility] Sodium Chloride 0.9% IV 750 mL 750 mL, Rate: 75 ml/hr, Infuse over: 10 hr, Route: IV, Dosing Weight 98.182 kg, Total Volume: 750, Start date: 01/11/19 5:45:00 BAKING POWDER MIXER, Duration: 24 hr, Stop date: 01/12/19 5:44:00 BAKING POWDER MIXER, 2.26, m2 Inactive 01/11/2019 [facility] Exparel 20 mL, Route: InFILtration(local), Drug Form: INJ, Dosing Weight 98.182, kg, ONCALL, control panel tester to prosthetic lab technician, Start date: 01/09/19 15:00:00 BAKING POWDER MIXER, Duration: 1 day, Stop date: 01/10/19 14:59:00 BAKING POWDER MIXER No Longer Active 01/09/2019 [facility] Sodium Chloride 0.9% (Bolus) IV 250 mL, 250 ml/hr, Infuse Over: 1 hr, Route: IV, 250, Drug form: INJ, ONCALL, Priority: Routine, Dosing Weight 98.182 kg, Start date: 01/09/19 15:00:00 BAKING POWDER MIXER, Duration: 1 doses or times No Longer Active 01/09/2019 [facility] Sodium Chloride 0.9% IV 750 mL 750 mL, Rate: 75 ml/hr, Infuse over: 10 hr, Route: IV, Dosing Weight 98.182 kg, Total Volume: 750, Start date: 01/09/19 14:40:00 BAKING POWDER MIXER, Duration: 24 hr, Stop date: 01/10/19 14:39:00 BAKING POWDER MIXER, 2.26, m2 No Longer Active 01/09/2019 [facility] Sodium Chloride 0.9% (titrate) 250 mL 250 mL, Rate: To prime line and flush remaining blood products., Dosing Weight 98.182, kg, Route: IV, Total Volume: 250, Start Date: 01/09/19 14:40:00 BAKING POWDER MIXER, Duration: 30 day, Stop date: 02/08/19 14:39:00 CDT, Replace Every: 24 hr No Longer Active 01/09/2019 [facility] normal saline 0.9% IV 500 mL 500 mL, Rate: 500 ml/hr, Infuse over: 1 hr, Route: IV, Dosing Weight 98.182 kg, Total Volume: 500, Start date: 01/09/19 11:32:00 BAKING POWDER MIXER, Duration: 30 day, Stop date: 02/08/19 12:31:00 CDT, 2.26, m2 No Longer Active 01/09/2019 [facility] normal saline 0.9% IV 1,000 mL 1,000 mL, Rate: 100 ml/hr, Infuse over: 10 hr, Route: IV, Dosing Weight 98.182 kg, Total Volume: 1,000, Start date: 01/09/19 11:32:00 BAKING POWDER MIXER, Duration: 30 day, Stop date: 02/08/19 11:31:00 CDT, 2.26, m2 No Longer Active 01/09/2019 [facility] normal saline 0.9% IV 1000 mL 1,000 mL, Rate: 75 ml/hr, Infuse over: 13.3 hr, Route: IV, Dosing Weight 98.182 kg, Total Volume: 1,000, Start date: 01/09/19 11:29:00 BAKING POWDER MIXER, Duration: 30 day, Stop date: 02/08/19 12:28:00 CDT, 2.26, m2 Inactive 01/09/2019 [facility] normal saline 0.9% IV 250 mL 250 mL, Rate: 250 ml/hr, Infuse over: 1 hr, Route: IV, Dosing Weight 98.182 kg, Total Volume: 250, Start date: 01/09/19 11:28:00 BAKING POWDER MIXER, Duration: 30 day, Stop date: 02/08/19 12:27:00 CDT, 2.26, m2 Inactive 01/09/2019 [facility] insulin detemir 100 UNT/ML Injectable Solution [Levemir] 53 units, SUB-Q, Daily, 0 Refill(s) On Hold 01/09/2019 [facility] Furosemide 40 MG Oral Tablet [Lasix] 40 mg=1 tab, PO, Daily, # 30 tab, 0 Refill(s) On Hold 01/09/2019 [facility] normal saline 0.9% IV 250 mL 250 mL, Rate: 250 ml/hr, Infuse over: 1 hr, Route: IV, Dosing Weight 101.364 kg, Total Volume: 250, Start date: 12/27/18 13:57:00 BAKING POWDER MIXER, Duration: 30 day, Stop date: 01/26/19 14:56:00 CDT, 2.3, m2 Active 12/27/2018 [facility] clopidogrel 75 MG Oral Tablet [Plavix] 75 mg=1 tab, PO, Daily, # 30 tab, 0 Refill(s) Active 12/27/2018 [facility] Aspirin 81 MG Enteric Coated Tablet 81 mg=1 tab, PO, Daily, # 90 tab, 3 Refill(s) Active 12/27/2018 [facility] Centrum Silver Men's PO, ONCE, 0 Refill(s) Active 12/27/2018 [facility] CoQ10 100 mg, PO, ONCE, 0 Refill(s) Active 12/27/2018 [facility] rivaroxaban 20 MG Oral Tablet [Xarelto] 20 mg=1 tab, PO, QPM, # 30 tab, 3 Refill(s) Active 12/27/2018 [facility] brinzolamide 10 MG/ML Ophthalmic Suspension [Azopt] one drop, Each Affected Ear, BID, 0 Refill(s) Active 12/27/2018 [facility] Brimonidine tartrate 2 MG/ML / Timolol 5 MG/ML Ophthalmic Solution [Combigan] 1 drp, OPTH, Q12H, # 10 mL, 0 Refill(s) Active 12/27/2018 [facility] tamsulosin 0.4 mg oral capsule 0.4 mg=1 cap, PO, Daily, # 30 cap, 0 Refill(s) Active 12/27/2018 [facility] sitagliptin 50 MG Oral Tablet [Januvia] 50 mg=1 tab, PO, Daily, # 90 tab, 1 Refill(s) Active 12/27/2018 [facility] Omeprazole 40 Mg Capsule.dr, 1 Cap Oral Daily Active 03/06/2018 [facility] Rivaroxaban (Xarelto) 15 Mg Tablet, 20 Mg Oral Daily Active 03/06/2018 [facility] Saxagliptin Hcl/Metformin Hcl (Kombiglyze Xr 2.5-1,000 Mg Tab) 1 Each Tbmp.24hr, 2 Tab Oral Daily Active 03/06/2018 [facility] Nitroglycerin (Nitrostat) 0.6 Mg Tab.subl, Active 03/05/2018 [facility] Albuterol Sulfate (Proventil Hfa) 6.7 Gm Hfa.aer.ad, 2 Inh Inhalation Every 4 Hours as needed for Shortness Of Breath Active [place] 11/11/2014 [facility] Aspirin (Asa) 81 Mg Tab, 81 Mg Oral Daily Active 11/06/2014 [facility] Sucralfate 1 Gm Tablet, 1 Gm Oral Twice A Day Active 11/06/2014 [facility] Allopurinol 100 Mg Tablet Twice A Day Active [facility] Aspirin (Aspir 81) 81 Mg Tablet. Daily Active [facility] Brimonidine Tartrate/Timolol (Combigan Eye Drops) 10 Ml Drops Twice A Day Active [facility] Brinzolamide (Azopt) 10 Ml Susp Twice A Day Active [facility] Clopidogrel Bisulfate (Clopidogrel) 75 Mg Tablet Daily Active [facility] Furosemide 40 Mg Tablet Daily Active [facility] Indapamide 1.25 Mg Tablet Daily Active [facility] Rivaroxaban (Xarelto) 15 Mg Tablet Daily Active [facility] Simvastatin 40 Mg Tablet Bedtime Active [facility] Tamsulosin Hcl (Flomax*) 0.4 Mg Cap Daily Active [facility] Travoprost (Benzalkonium) (Travatan 0.004% Eye Drop) 5 Ml Drops Bedtime Active [facility] Allergies, Adverse Reactions, Alerts Substance Category Reaction Severity Reaction type Status Date Reported Comments Source Immunizations Immunization Date Given Site Status Last Updated Comments Source Results Order Name Results Value Reference Range Date Interpretation Comments Source Capillary blood glucose measurement by glucometer (mass/volume) 156 70 - 120 01/27/2019 [facility] Serum or plasma creatine kinase measurement (enzymatic activity/volume) 23 30 - 200 01/27/2019 [facility] Serum or plasma creatine kinase MB measurement (mass/volume) 1.30 0 - 5.0 01/27/2019 [facility] Troponin I measurement by highly sensitive enzyme immunoassay 0.060 0 - 0.300 01/27/2019 [facility] Blood leukocytes automated count (number/volume) 4.97 4.8 - 10.8 01/27/2019 [facility] Blood erythrocytes automated count (number/volume) 4.65 4.3 - 5.7 01/27/2019 [facility] Blood hemoglobin measurement (moles/volume) 12.8 14.0 - 18.0 01/27/2019 [facility] Automated blood hematocrit (volume fraction) 39.2 38.2 - 49.6 01/27/2019 [facility] Automated erythrocyte mean corpuscular volume 84.3 81 - 99 01/27/2019 [facility] Automated erythrocyte mean corpuscular hemoglobin (mass per erythrocyte) 27.5 28 - 32 01/27/2019 [facility] Automated erythrocyte mean corpuscular hemoglobin concentration measurement (mass/volume) 32.7 31 - 35 01/27/2019 [facility] RDW BldCo-Rto 17.5 11.7 - 14.4 01/27/2019 [facility] Automated blood platelet count (count/volume) 105 140 - 360 01/27/2019 [facility] Automated blood segmented neutrophil count as percentage of total leukocytes 60.6 38.7 - 80.0 01/27/2019 [facility] Automated blood lymphocyte count as percentage ot total leukocytes 18.3 18.0 - 39.1 01/27/2019 [facility] Automated blood monocyte count as percentage of total leukocytes 17.1 4.4 - 11.3 01/27/2019 [facility] Automated blood eosinophil count as percentage of total leukocytes 3.2 0.0 - 6.0 01/27/2019 [facility] Automated blood basophil count as percentage of total leukocytes 0.6 0.0 - 1.0 01/27/2019 [facility] IM GRANULOCYTES % 0.2 0.0 - 1.0 01/27/2019 [facility] Automated blood neutrophil count 3.0 2.1 - 6.9 01/27/2019 [facility] Blood lymphocytes count (number/volume) 0.9 1.0 - 3.2 01/27/2019 [facility] Blood monocytes automated count (number/volume) 0.9 0.2 - 0.8 01/27/2019 [facility] Automated blood eosinophil count 0.2 0.0 - 0.4 01/27/2019 [facility] Automated blood basophil count (count/volume) 0.0 0.0 - 0.1 01/27/2019 [facility] Absolute Immature Granulocyte (auto 0.01 0 - 0.1 01/27/2019 [facility] Prothrombin time (PT) in platelet poor plasma by coagulation assay 22.2 11.9 - 14.5 01/27/2019 [facility] INR in Platelet poor plasma by Coagulation assay 1.87 01/27/2019 [facility] Activated partial thromboplastin time (aPTT) in platelet poor plasma bycoagulation assay 38.4 23.8 - 35.5 01/27/2019 [facility] Serum or plasma sodium measurement (moles/volume) 136 136 - 145 01/27/2019 [facility] Serum or plasma potassium measurement (moles/volume) 4.2 3.5 - 5.1 01/27/2019 [facility] Serum or plasma chloride measurement (moles/volume) 97 98 - 107 01/27/2019 [facility] Serum or plasma carbon dioxide, total measurement (moles/volume) 31 22 - 29 01/27/2019 [facility] Serum or plasma anion gap 12.2 8 - 16 01/27/2019 [facility] Serum or plasma urea nitrogen measurement (mass/volume) 35 7 - 26 01/27/2019 [facility] Serum or plasma creatinine measurement (mass/volume) 1.81 0.72 - 1.25 01/27/2019 [facility] Serum or plasma urea nitrogen/creatinine mass ratio 19 6 - 25 01/27/2019 [facility] Estimated glomerular filtration rate (GFR) determination 35 60 01/27/2019 [facility] Glucose measurement 193 74 - 118 01/27/2019 [facility] Serum or plasma calcium measurement (mass/volume) 9.7 8.4 - 10.2 01/27/2019 [facility] Serum or plasma total bilirubin measurement (mass/volume) 0.9 0.2 - 1.2 01/27/2019 [facility] Aspartate Amino Transf (AST/SGOT) 37 5 - 34 01/27/2019 [facility] Serum or plasma alanine aminotransferase measurement (enzymatic activity/volume) 36 0 - 55 01/27/2019 [facility] Serum or plasma protein measurement (mass/volume) 6.6 6.5 - 8.1 01/27/2019 [facility] Serum or plasma albumin measurement (mass/volume) 3.4 3.5 - 5.0 01/27/2019 [facility] Plasma globulin measurement (mass/volume) 3.2 2.3 - 3.5 01/27/2019 [facility] Serum or plasma albumin/globulin mass ratio 1.1 0.8 - 2.0 01/27/2019 [facility] Serum or plasma alkaline phosphatase measurement (enzymatic activity/volume) 105 40 - 150 01/27/2019 [facility] BNP Bld-mCnc 247.0 0 - 100 01/27/2019 [facility] BACTERIAL - SEROLOGY MRSA by PCR Negative (01/13/19 7:27 AM) 01/13/2019 [facility] CHEM PANEL Phosphorus 2.9 mg/dL 2.5 - 4.5 01/13/2019 [facility] CHEM PANEL Magnesium Lvl 2.2 mg/dL 1.8 - 2.4 01/13/2019 [facility] CHEM PANEL eGFR 49 mL/min/1.73m2 01/13/2019 Result [...] should be multiplied by the estimated BMI. [facility] CHEM PANEL BUN 28 mg/dL 7 - 22 01/13/2019 [facility] CHEM PANEL Glucose Lvl 76 mg/dL 70 - 99 01/13/2019 [facility] CHEM PANEL Calcium Lvl 8.5 mg/dL 8.5 - 10.5 01/13/2019 [facility] CHEM PANEL Sodium Lvl 141 meq/L 135 - 145 01/13/2019 [facility] CHEM PANEL CO2 25 meq/L 24 - 32 01/13/2019 [facility] CHEM PANEL Chloride Lvl 110 meq/L 95 - 109 01/13/2019 [facility] CHEM PANEL Potassium Lvl 3.5 meq/L 3.5 - 5.1 01/13/2019 [facility] CHEM PANEL Creatinine Lvl 1.29 mg/dL 0.50 - 1.40 01/13/2019 [facility] CHEM PANEL AGAP 9.5 meq/L 10.0 - 20.0 01/13/2019 [facility] HEMATOLOGY Lymphocytes # 1.1 K/CMM 1.0 - 5.5 01/13/2019 [facility] HEMATOLOGY Monocytes # 0.8 K/CMM 0.0 - 0.8 01/13/2019 [facility] HEMATOLOGY Neutrophils # 6.3 K/CMM 1.5 - 8.1 01/13/2019 [facility] HEMATOLOGY Basophils 0.6 % 0.0 - 1.0 01/13/2019 [facility] HEMATOLOGY Monocytes 10.0 % 2.0 - 12.0 01/13/2019 [facility] HEMATOLOGY Eosinophils 0.5 % 0.0 - 4.0 01/13/2019 [facility] HEMATOLOGY Segs 75.5 % 45.0 - 75.0 01/13/2019 [facility] HEMATOLOGY Lymphocytes 13.4 % 20.0 - 40.0 01/13/2019 [facility] HEMATOLOGY PTT 35.8 s 22.9 - 35.8 01/13/2019 [facility] HEMATOLOGY INR 1.71 0.85 - 1.17 01/13/2019 [facility] HEMATOLOGY PT 19.7 s 12.0 - 14.7 01/13/2019 [facility] HEMATOLOGY MCH 28.0 pg 27.0 - 31.0 01/13/2019 [facility] HEMATOLOGY Hgb 10.8 g/dL 14.0 - 18.0 01/13/2019 [facility] HEMATOLOGY MCV 85.5 fL 80.0 - 94.0 01/13/2019 [facility] HEMATOLOGY Hct 32.8 % 42.0 - 54.0 01/13/2019 [facility] HEMATOLOGY WBC 8.3 K/CMM 3.7 - 10.4 01/13/2019 [facility] HEMATOLOGY RBC 3.83 M/CMM 4.70 - 6.10 01/13/2019 [facility] HEMATOLOGY MPV 9.5 fL 7.4 - 10.4 01/13/2019 [facility] HEMATOLOGY MCHC 32.8 g/dL 32.0 - 36.0 01/13/2019 [facility] HEMATOLOGY Platelet 79 K/CMM 133 - 450 01/13/2019 [facility] HEMATOLOGY RDW 17.4 % 11.5 - 14.5 01/13/2019 [facility] PARATHYROID PROFILE Ca Norm WB 1.15 mMol/L 1.05 - 1.25 01/13/2019 [facility] PARATHYROID PROFILE Ca Ion WB 1.13 mMol/L 1.05 - 1.25 01/13/2019 [facility] URINE AND STOOL UA RBC null 0 - 2 01/13/2019 [facility] URINE AND STOOL UA Mucus Few /LPF None Seen /LPF 01/13/2019 [facility] URINE AND STOOL UA Urobilinogen null 0.1 - 1.0 01/13/2019 [facility] URINE AND STOOL UA Nitrite Negative (01/12/19 10:36 PM) Negative 01/13/2019 [facility] URINE AND STOOL UA Leuk Est Small *ABN* (01/12/19 10:36 PM) Negative 01/13/2019 [facility] URINE AND STOOL UA Sq Epi Occasional /LPF Few /LPF 01/13/2019 [facility] URINE AND STOOL UA WBC 3 /HPF 0 - 5 01/13/2019 [facility] URINE AND STOOL UA Protein Negative (01/12/19 10:36 PM) Negative 01/13/2019 [facility] URINE AND STOOL UA Glucose 500 mg/dL Negative mg/dL 01/13/2019 [facility] URINE AND STOOL UA Ketones Negative *NA* (01/12/19 10:36 PM) Negative 01/13/2019 [facility] URINE AND STOOL UA Bili Negative *NA* (01/12/19 10:36 PM) Negative 01/13/2019 [facility] URINE AND STOOL UA Blood Negative (01/12/19 10:36 PM) Negative 01/13/2019 [facility] URINE AND STOOL UA Turbidity Clear (01/12/19 10:36 PM) Clear 01/13/2019 [facility] URINE AND STOOL UA Color Yellow *NA* (01/12/19 10:36 PM) Yellow 01/13/2019 [facility] URINE AND STOOL UA Spec Grav 1.027 <=1.030 01/13/2019 [facility] URINE AND STOOL UA pH 5.0 5.0 - 8.0 01/13/2019 [facility] CHEM PANEL eGFR 45 mL/min/1.73m2 01/12/2019 Result [...] should be multiplied by the estimated BMI. [facility] CHEM PANEL CO2 26 meq/L 24 - 32 01/12/2019 [facility] CHEM PANEL AGAP 12.0 meq/L 10.0 - 20.0 01/12/2019 [facility] CHEM PANEL Calcium Lvl 8.4 mg/dL 8.5 - 10.5 01/12/2019 [facility] CHEM PANEL Chloride Lvl 109 meq/L 95 - 109 01/12/2019 [facility] CHEM PANEL Potassium Lvl 4.0 meq/L 3.5 - 5.1 01/12/2019 [facility] CHEM PANEL Glucose Lvl 218 mg/dL 70 - 99 01/12/2019 [facility] CHEM PANEL BUN 25 mg/dL 7 - 22 01/12/2019 [facility] CHEM PANEL Creatinine Lvl 1.39 mg/dL 0.50 - 1.40 01/12/2019 [facility] CHEM PANEL Sodium Lvl 143 meq/L 135 - 145 01/12/2019 [facility] CHEM PANEL Magnesium Lvl 2.3 mg/dL 1.8 - 2.4 01/12/2019 [facility] CHEM PANEL Phosphorus 2.7 mg/dL 2.5 - 4.5 01/12/2019 [facility] HEMATOLOGY PTT 32.5 s 22.9 - 35.8 01/12/2019 [facility] HEMATOLOGY PT 15.8 s 12.0 - 14.7 01/12/2019 [facility] HEMATOLOGY INR 1.29 0.85 - 1.17 01/12/2019 [facility] HEMATOLOGY Lymphocytes # 0.6 K/CMM 1.0 - 5.5 01/12/2019 [facility] HEMATOLOGY Neutrophils # 4.3 K/CMM 1.5 - 8.1 01/12/2019 [facility] HEMATOLOGY Basophils 0.2 % 0.0 - 1.0 01/12/2019 [facility] HEMATOLOGY Monocytes 6.6 % 2.0 - 12.0 01/12/2019 [facility] HEMATOLOGY Monocytes # 0.3 K/CMM 0.0 - 0.8 01/12/2019 [facility] HEMATOLOGY Segs 82.3 % 45.0 - 75.0 01/12/2019 [facility] HEMATOLOGY Lymphocytes 10.9 % 20.0 - 40.0 01/12/2019 [facility] HEMATOLOGY MPV 9.3 fL 7.4 - 10.4 01/12/2019 [facility] HEMATOLOGY Platelet 82 K/CMM 133 - 450 01/12/2019 [facility] HEMATOLOGY RDW 17.1 % 11.5 - 14.5 01/12/2019 [facility] HEMATOLOGY MCHC 33.4 g/dL 32.0 - 36.0 01/12/2019 [facility] HEMATOLOGY MCH 28.5 pg 27.0 - 31.0 01/12/2019 [facility] HEMATOLOGY MCV 85.2 fL 80.0 - 94.0 01/12/2019 [facility] HEMATOLOGY Hct 34.3 % 42.0 - 54.0 01/12/2019 [facility] HEMATOLOGY Hgb 11.5 g/dL 14.0 - 18.0 01/12/2019 [facility] HEMATOLOGY RBC 4.02 M/CMM 4.70 - 6.10 01/12/2019 [facility] HEMATOLOGY WBC 5.3 K/CMM 3.7 - 10.4 01/12/2019 [facility] CHEM PANEL Uric Acid 7.2 mg/dL 3.8 - 8.0 01/11/2019 [facility] CHEM PANEL eGFR 44 mL/min/1.73m2 01/11/2019 Result [...] should be multiplied by the estimated BMI. [facility] CHEM PANEL Glucose Lvl 148 mg/dL 70 - 99 01/11/2019 [facility] CHEM PANEL Sodium Lvl 142 meq/L 135 - 145 01/11/2019 [facility] CHEM PANEL BUN 27 mg/dL 7 - 22 01/11/2019 [facility] CHEM PANEL Creatinine Lvl 1.40 mg/dL 0.50 - 1.40 01/11/2019 [facility] CHEM PANEL Calcium Lvl 8.7 mg/dL 8.5 - 10.5 01/11/2019 [facility] CHEM PANEL Potassium Lvl 3.6 meq/L 3.5 - 5.1 01/11/2019 [facility] CHEM PANEL Chloride Lvl 107 meq/L 95 - 109 01/11/2019 [facility] CHEM PANEL CO2 26 meq/L 24 - 32 01/11/2019 [facility] CHEM PANEL AGAP 12.6 meq/L 10.0 - 20.0 01/11/2019 [facility] CHEM PANEL Magnesium Lvl 2.4 mg/dL 1.8 - 2.4 01/11/2019 [facility] HEMATOLOGY RDW 17.3 % 11.5 - 14.5 01/11/2019 [facility] HEMATOLOGY MPV 9.3 fL 7.4 - 10.4 01/11/2019 [facility] HEMATOLOGY Platelet 90 K/CMM 133 - 450 01/11/2019 [facility] HEMATOLOGY MCHC 33.0 g/dL 32.0 - 36.0 01/11/2019 [facility] HEMATOLOGY MCH 28.5 pg 27.0 - 31.0 01/11/2019 [facility] HEMATOLOGY MCV 86.4 fL 80.0 - 94.0 01/11/2019 [facility] HEMATOLOGY WBC 6.0 K/CMM 3.7 - 10.4 01/11/2019 [facility] HEMATOLOGY RBC 4.11 M/CMM 4.70 - 6.10 01/11/2019 [facility] HEMATOLOGY Hct 35.5 % 42.0 - 54.0 01/11/2019 [facility] HEMATOLOGY Hgb 11.7 g/dL 14.0 - 18.0 01/11/2019 [facility] HEMATOLOGY INR 1.35 0.85 - 1.17 01/11/2019 [facility] HEMATOLOGY PT 16.4 s 12.0 - 14.7 01/11/2019 [facility] HEMATOLOGY PTT 37.2 s 22.9 - 35.8 01/11/2019 [facility] HEMATOLOGY Basophils 0.8 % 0.0 - 1.0 01/11/2019 [facility] HEMATOLOGY Monocytes 12.1 % 2.0 - 12.0 01/11/2019 [facility] HEMATOLOGY Eosinophils 3.8 % 0.0 - 4.0 01/11/2019 [facility] HEMATOLOGY Lymphocytes 21.3 % 20.0 - 40.0 01/11/2019 [facility] HEMATOLOGY Segs 62.0 % 45.0 - 75.0 01/11/2019 [facility] HEMATOLOGY Eosinophils # 0.2 K/CMM 0.0 - 0.5 01/11/2019 [facility] HEMATOLOGY Monocytes # 0.7 K/CMM 0.0 - 0.8 01/11/2019 [facility] HEMATOLOGY Lymphocytes # 1.3 K/CMM 1.0 - 5.5 01/11/2019 [facility] HEMATOLOGY Neutrophils # 3.7 K/CMM 1.5 - 8.1 01/11/2019 [facility] PARATHYROID PROFILE Ca Ion WB 1.10 mMol/L 1.05 - 1.25 01/11/2019 [facility] PARATHYROID PROFILE Ca Norm WB 1.10 mMol/L 1.05 - 1.25 01/11/2019 [facility] BLOOD BANK RESULTS ABO/Rh O NEG 01/11/2019 [facility] BLOOD BANK RESULTS Antibody Scrn Negative (01/11/19 5:48 AM) 01/11/2019 [facility] CARDIAC ENZYMES BNP 1369 pg/mL <=100 pg/mL 01/11/2019 [facility] CHEM PANEL Albumin Lvl 3.4 g/dL 3.5 - 5.0 01/11/2019 [facility] CHEM PANEL ALT 28 unit/L 0 - 65 01/11/2019 [facility] CHEM PANEL AST 25 unit/L 0 - 37 01/11/2019 [facility] CHEM PANEL Total Protein 7.2 g/dL 6.4 - 8.4 01/11/2019 [facility] CHEM PANEL Bili Total 0.7 mg/dL 0.2 - 1.3 01/11/2019 [facility] CHEM PANEL Alk Phos 109 unit/L 39 - 136 01/11/2019 [facility] CHEM PANEL A/G Ratio 0.9 0.7 - 1.6 01/11/2019 [facility] CHEM PANEL Globulin 3.8 g/dL 2.7 - 4.2 01/11/2019 [facility] CHEM PANEL B/C Ratio 18 6 - 25 01/11/2019 [facility] HEMATOLOGY Eosinophils 4.1 % 0.0 - 4.0 01/11/2019 [facility] HEMATOLOGY Eosinophils # 0.2 K/CMM 0.0 - 0.5 01/11/2019 [facility] HEMATOLOGY Basophils # 0.1 K/CMM 0.0 - 0.2 01/11/2019 [facility] BLOOD BANK RESULTS FFP product Product available (01/11/19 5:45 AM) 01/11/2019 [facility] BLOOD BANK RESULTS RBC product Product available (01/11/19 5:45 AM) 01/11/2019 [facility] Chest 1view DX Chest 1view DX EXAM: XR CHEST 1 VIEW DATE: 01/11/2019 1212 hours [employer] INDICATION: Arrhythmias - s/p TAVR COMPARISON: CTA [...] - This report was dictated by a Heel Painter/Fellow/Physician [employer] Brazer/Solderer. I have personally reviewed the images as well as the interpretation and agree with the findings. Read by: Maria E Camilo MD Resident/Fellow/Physician [employer] Brazer/Solderer: Maria E Camilo MD Dictated Date/time: 01/11/19 13:12 Electronically Signed by: Rajeev Vizcaino MD 01/11/19 14:37 FINAL REPORT [facility] CARDIAC ENZYMES BNP 704 pg/mL <=100 pg/mL 01/09/2019 [facility] CHEM PANEL Magnesium Lvl 2.6 mg/dL 1.8 - 2.4 01/09/2019 [facility] CHEM PANEL eGFR 41 mL/min/1.73m2 01/09/2019 Result [...] should be multiplied by the estimated BMI. [facility] CHEM PANEL Chloride Lvl 106 meq/L 95 - 109 01/09/2019 [facility] CHEM PANEL Potassium Lvl 3.2 meq/L 3.5 - 5.1 01/09/2019 [facility] CHEM PANEL Calcium Lvl 8.3 mg/dL 8.5 - 10.5 01/09/2019 [facility] CHEM PANEL CO2 28 meq/L 24 - 32 01/09/2019 [facility] CHEM PANEL Glucose Lvl 104 mg/dL 70 - 99 01/09/2019 [facility] CHEM PANEL Sodium Lvl 143 meq/L 135 - 145 01/09/2019 [facility] CHEM PANEL BUN 28 mg/dL 7 - 22 01/09/2019 [facility] CHEM PANEL Creatinine Lvl 1.48 mg/dL 0.50 - 1.40 01/09/2019 [facility] CHEM PANEL Total Protein 6.3 g/dL 6.4 - 8.4 01/09/2019 [facility] CHEM PANEL Bili Total 0.8 mg/dL 0.2 - 1.3 01/09/2019 [facility] CHEM PANEL Alk Phos 76 unit/L 39 - 136 01/09/2019 [facility] CHEM PANEL Albumin Lvl 3.0 g/dL 3.5 - 5.0 01/09/2019 [facility] CHEM PANEL ALT 18 unit/L 0 - 65 01/09/2019 [facility] CHEM PANEL AST 24 unit/L 0 - 37 01/09/2019 [facility] CHEM PANEL B/C Ratio 19 6 - 25 01/09/2019 [facility] CHEM PANEL AGAP 12.2 meq/L 10.0 - 20.0 01/09/2019 [facility] CHEM PANEL Globulin 3.3 g/dL 2.7 - 4.2 01/09/2019 [facility] CHEM PANEL A/G Ratio 0.9 0.7 - 1.6 01/09/2019 [facility] BLOOD BANK RESULTS RBC product Product available (01/09/19 2:40 PM) 01/09/2019 [facility] BLOOD BANK RESULTS FFP product Product available (01/09/19 2:40 PM) 01/09/2019 [facility] URINE AND STOOL UA Bacteria Occasional /HPF None Seen /HPF 01/09/2019 [facility] URINE AND STOOL UA Amorph Angelica Few /HPF None Seen /HPF 01/09/2019 [facility] URINE AND STOOL UA Hyal Cast 2 /LPF 0 - 2 01/09/2019 [facility] URINE AND STOOL UA Leuk Est Trace *ABN* (01/09/19 2:40 PM) Negative 01/09/2019 [facility] URINE AND STOOL UA Sq Epi Occasional /LPF Few /LPF 01/09/2019 [facility] URINE AND STOOL UA WBC 1 /HPF 0 - 5 01/09/2019 [facility] URINE AND STOOL UA RBC 1 /HPF 0 - 2 01/09/2019 [facility] URINE AND STOOL UA Nitrite Negative (01/09/19 2:40 PM) Negative 01/09/2019 [facility] URINE AND STOOL UA Urobilinogen null 0.1 - 1.0 01/09/2019 [facility] URINE AND STOOL UA Bili Negative *NA* (01/09/19 2:40 PM) Negative 01/09/2019 [facility] URINE AND STOOL UA Blood Negative (01/09/19 2:40 PM) Negative 01/09/2019 [facility] URINE AND STOOL UA Glucose Negative *NA* (01/09/19 2:40 PM) Negative 01/09/2019 [facility] URINE AND STOOL UA Ketones Negative *NA* (01/09/19 2:40 PM) Negative 01/09/2019 [facility] URINE AND STOOL UA Protein Negative (01/09/19 2:40 PM) Negative 01/09/2019 [facility] URINE AND STOOL UA pH 7.0 5.0 - 8.0 01/09/2019 [facility] URINE AND STOOL UA Turbidity Marked *ABN* (01/09/19 2:40 PM) Clear 01/09/2019 [facility] URINE AND STOOL UA Color Yellow *NA* (01/09/19 2:40 PM) Yellow 01/09/2019 [facility] URINE AND STOOL UA Spec Grav 1.016 <=1.030 01/09/2019 [facility] BLOOD BANK RESULTS Antibody Scrn Negative (01/09/19 10:34 AM) 01/09/2019 [facility] BLOOD BANK RESULTS ABO/Rh O NEG 01/09/2019 [facility] CHEM PANEL eGFR 35 mL/min/1.73m2 01/09/2019 Result [...] should be multiplied by the estimated BMI. [facility] CHEM PANEL Potassium Lvl 3.8 meq/L 3.5 - 5.1 01/09/2019 [facility] CHEM PANEL Glucose Lvl 132 mg/dL 70 - 99 01/09/2019 [facility] CHEM PANEL BUN 30 mg/dL 7 - 22 01/09/2019 [facility] CHEM PANEL Sodium Lvl 142 meq/L 135 - 145 01/09/2019 [facility] CHEM PANEL Creatinine Lvl 1.71 mg/dL 0.50 - 1.40 01/09/2019 [facility] CHEM PANEL CO2 30 meq/L 24 - 32 01/09/2019 [facility] CHEM PANEL Chloride Lvl 103 meq/L 95 - 109 01/09/2019 [facility] CHEM PANEL Calcium Lvl 9.2 mg/dL 8.5 - 10.5 01/09/2019 [facility] CHEM PANEL AGAP 12.8 meq/L 10.0 - 20.0 01/09/2019 [facility] HEMATOLOGY RDW 17.0 % 11.5 - 14.5 01/09/2019 [facility] HEMATOLOGY MCHC 33.0 g/dL 32.0 - 36.0 01/09/2019 [facility] HEMATOLOGY Platelet 108 K/CMM 133 - 450 01/09/2019 [facility] HEMATOLOGY MPV 9.2 fL 7.4 - 10.4 01/09/2019 [facility] HEMATOLOGY Hgb 13.2 g/dL 14.0 - 18.0 01/09/2019 [facility] HEMATOLOGY MCV 86.3 fL 80.0 - 94.0 01/09/2019 [facility] HEMATOLOGY Hct 40.1 % 42.0 - 54.0 01/09/2019 [facility] HEMATOLOGY WBC 6.3 K/CMM 3.7 - 10.4 01/09/2019 [facility] HEMATOLOGY RBC 4.65 M/CMM 4.70 - 6.10 01/09/2019 [facility] HEMATOLOGY MCH 28.5 pg 27.0 - 31.0 01/09/2019 [facility] HEMATOLOGY Segs 60.2 % 45.0 - 75.0 01/09/2019 [facility] HEMATOLOGY Lymphocytes 21.1 % 20.0 - 40.0 01/09/2019 [facility] HEMATOLOGY Monocytes 13.3 % 2.0 - 12.0 01/09/2019 [facility] HEMATOLOGY Neutrophils # 3.8 K/CMM 1.5 - 8.1 01/09/2019 [facility] HEMATOLOGY Basophils 1.2 % 0.0 - 1.0 01/09/2019 [facility] HEMATOLOGY Eosinophils 4.2 % 0.0 - 4.0 01/09/2019 [facility] HEMATOLOGY Lymphocytes # 1.3 K/CMM 1.0 - 5.5 01/09/2019 [facility] HEMATOLOGY Basophils # 0.1 K/CMM 0.0 - 0.2 01/09/2019 [facility] HEMATOLOGY Eosinophils # 0.3 K/CMM 0.0 - 0.5 01/09/2019 [facility] HEMATOLOGY Monocytes # 0.8 K/CMM 0.0 - 0.8 01/09/2019 [facility] HEMATOLOGY PT 15.8 s 12.0 - 14.7 01/09/2019 [facility] HEMATOLOGY INR 1.29 0.85 - 1.17 01/09/2019 [facility] HEMATOLOGY PTT 31.1 s 22.9 - 35.8 01/09/2019 [facility] CHEM PANEL eGFR 41 mL/min/1.73m2 12/27/2018 Result [...] should be multiplied by the estimated BMI. [facility] CHEM PANEL POC Creatinine 1.5 mg/dL 0.5 - 1.4 12/27/2018 [facility] Heart/coronary art TAVR CTA Heart/coronary art TAVR CTA EXAM: CTA HEART WITH CONTRAST DATE: 12/27/2018 12:51 [employer] INDICATION: - aortic stenosis. Aortic stenosis. COMPARISON: No available prior cardiac CTA for comparison TECHNIQUE: Contrast imaging was performed on a [employer] [address] scanner utilizing a single breath hold, at 750 mA and 120 kVp. Retrospective ECG gating was performed, at a heart rate of 56 bpm. Images were reformatted at 0.5 mm intervals and sent to the [employer] workstation for interpretation of both systolic and [...] aorta: width: 32 mm Coplanar TAVR angle: CHELO 10 and CRANIAL 3 Coronary Arteries: This [...] Rajeev Vizcaino MD 12/29/18 09:13 FINAL REPORT [facility] Chest/Abd/Pelvis TAVR CTA Chest/Abd/Pelvis TAVR CTA EXAM: [...] - This report was dictated by a Heel Painter/Fellow/Physician [employer] Brazer/Solderer. I have personally reviewed the images as well as the interpretation and agree with the findings. Read by: Hayley Davis MD Resident/Fellow/Physician [employer] Brazer/Solderer: Hayley Davis MD Dictated Date/time: 12/28/18 13:57 Electronically Signed by: Tee Mix MD 12/30/18 07:29 FINAL REPORT [facility] Bladder US Bladder US EXAM: Renal ultrasound. [...] Ashkan Larios MD 08/31/16 17:40 FINAL REPORT [facility] Retroperitoneal limited US Retroperitoneal limited US [...] Ashkan Larios MD 08/31/16 17:40 FINAL REPORT [facility] Vital Signs Vital Sign Value Date Comments Source Systolic (mm Hg) 123 01/13/2019 [facility] Diastolic (mm Hg) 65 01/13/2019 [facility] Systolic (mm Hg) 126 01/13/2019 [facility] Diastolic (mm Hg) 61 01/13/2019 [facility] Systolic (mm Hg) 109 01/13/2019 [facility] Diastolic (mm Hg) 58 01/13/2019 [facility] Respitory Rate 20 01/13/2019 [facility] Weight 108.778 01/13/2019 [facility] Respitory Rate 18 01/13/2019 [facility] Respitory Rate 15 01/13/2019 [facility] Temperature Oral (F) 98.4 F 01/13/2019 [facility] Temperature Oral (F) 98.3 F 01/13/2019 [facility] Temperature Oral (F) 97.0 F 01/12/2019 [facility] Height 182.88 cm 01/11/2019 [facility] Weight 100.455 01/11/2019 [facility] BMI Calculated 30.04 01/11/2019 [facility] Systolic (mm Hg) 110 01/09/2019 [facility] Diastolic (mm Hg) 66 01/09/2019 [facility] Weight 98.182 01/09/2019 [facility] BMI Calculated 28.56 01/09/2019 [facility] Height 185.42 cm 01/09/2019 [facility] Systolic (mm Hg) 131 12/27/2018 [facility] Diastolic (mm Hg) 79 12/27/2018 [facility] Heart Rate 74 12/27/2018 [facility] Heart Rate 68 12/27/2018 [facility] Systolic (mm Hg) 140 12/27/2018 [facility] Diastolic (mm Hg) 83 12/27/2018 [facility] Weight 101.364 12/27/2018 [facility] BMI Calculated 29.48 12/27/2018 [facility] Height 185.42 cm 12/27/2018 [facility] Encounters Location Location Details Encounter Type Encounter Number Reason For Visit Attending Provider ADM Date DC Date Status Source [facility] [place] [facility] [id number] Robin Fritz 08/31/2016 09/01/2016 [facility] Barron Departed Emergency Room [id number] CURT DAVIS MD 07/25/2018 07/25/2018 [facility] Departed Emergency Room [id number] NAHEED MCRAE MD 09/26/2018 09/26/2018 [facility] Outpatient [id number] Vernon Arredondo 12/27/2018 12/28/2018 [facility] Bedded Outpatient [id number] Vernon Arredondo 01/09/2019 01/09/2019 [facility] Inpatient [id number] Vernon Arredondo 01/11/2019 01/13/2019 [facility] Discharged Inpatient (obs) [id number] DANNI ANGEL MD 01/27/2019 01/27/2019 [facility] Procedures Procedure Code Date Perfomer Comments Source X-ray of chest, two views [id number] 01/27/2019 [facility]IG[facility] Cardiac revascularization with bypass anastomosis [id number] ANDRZEJ Barron Appendectomy [id number] [facility] Cardiac catheterisation, left heart [id number] [facility] Cardiac revascularization with bypass anastomosis [id number] [facility] Carpal tunnel decompression [id number] [facility]
--- OUTSIDE RECORDS SUMMARY | 2019-03-21 15:59 | XMS REPORT | Summary of Care ---
Author Author PEDRO MERCEDES M.D. Unknown Address Unknown Phone Unavailable Care Team Providers Care Elevator Starter Name Role Phone PEDRO MERCEDES M.D. Unavailable Unavailable DAREN PALAFOX [place], PEDRO Gerber Unavailable Unavailable Unavailable Unavailable Functional Status Name Dates Details Functional status health issues are not documented Status: Name Dates Details Cognitive status health issues are not documented Status: Problems Name Dates Details S/P TAVR (transcatheter aortic valve replacement) (V43.3, Z95.2) Status: Active Aortic stenosis, severe (424.1, I35.0) Status: Active Medications Name Dates Details Travatan [...] * Refills: 0 Active 10 ML Vial Allopurinol 100 MG Oral Tablet take 1/2 tablet daily * Refills: 0 Active Allergies and Adverse Reactions Name Dates Details No Known Drug Allergies (Allergy) Status: Active Procedures Procedure Dates Details Complete PFTs w/DLCO and Lung Volumes Date: 21-Dec-2018 [N] 2D Echo complete, with Doppler [id number] Date: 15-Jan-2019 Immunization Name Dates Details Immunizations not documented Social History Name Dates Details Unknown if ever smoked Vital Signs Date Test Result Details [id number] BP Systolic 122 mm[Hg] Status: Comments: Location: RUE; Position: Sitting BP Diastolic 70 mm[Hg] Status: Comments: Location: RUE; Position: Sitting Height 73.5 in Status: Weight 220 lb Status: Body Mass Index Calculated 28.63 kg/m2 Status: Body Surface Area Calculated 2.25 m2 Status: Heart Rate 58 /min Status: Comments: Location: R Radial; O2 SAT 98 % Status: Comments: Source: RA Results Date Description Value Details Results not documented Plan of Care Name Dates Details Planned Observations Planned Goals not documented Planned Encounters Appointment; PEDRO MERCEDES M.D. On: 13-Feb-2020 13:30 Instructions Name Dates Details Instructions not documented Encounters Appointment; RAMY CARDENAS Encounter Diagnosis: Problem not documented On: 24-Nov-2018 8:30 Appointment; HODA CARDENASII Encounter Diagnosis: Problem not documented On: 27-Dec-2018 8:00 Appointment; PEDRO MERCEDES M.D. Encounter Diagnosis: Problem not documented On: 27-Dec-2018 9:20 Appointment; DEREK CARDENAS Encounter Diagnosis: Problem not documented On: 27-Dec-2018 11:00 Appointment; PROCEDURES, CARDIO Encounter Diagnosis: Problem not documented On: 11-Jan-2019 11:00 Appointment; SUSANA CARDENAS Encounter Diagnosis: Problem not documented On: 14-Feb-2019 11:00 Appointment; PEDRO MERCEDES M.D. Encounter Diagnosis: Problem not documented On: 14-Feb-2019 13:20
--- NOTE | 2019-03-21 19:10 | Diagnostic Imaging Report ---
CT of the pelvis was obtained WITHOUT contrast. TECHNIQUE: Standard departmental protocols were used. Sagittal and coronal reformations were obtained. Dose modulation, iterative reconstruction, and/or weight based adjustment of the mA/kV was utilized to reduce the radiation dose to as low as reasonably achievable. DLP = 572 mGy-cm HISTORY: Fall, hip injury COMPARISON: None. FINDINGS: Bones: No acute displaced fracture. No aggressive osseous lesion. Joints: Multifocal degenerative changes, most notably severe at the lumbosacral junction. Soft tissues: Diffuse scattered atherosclerotic vascular calcifications. Severe sigmoid diverticulosis. A small fat-containing umbilical hernia, without associated inflammatory changes. Diffuse muscle atrophy. IMPRESSION: 1. No acute displaced fracture. 2. Multifocal degenerative changes, most notably severe at the lumbosacral junction. 3. Severe sigmoid diverticulosis. 4. Small fat-containing focal hernia. Signed by: Dr. Charly Washington D.O., M.M.M. on 03/21/2019 7:07 PM
--- NOTE | 2019-03-21 19:45 | Diagnostic Imaging Report ---
BILATERAL HANDS - 3 Images EACH HISTORY: Fall, injury COMPARISON: None available. FINDINGS: Metallic watch partially obscures evaluation of the distal left radius and ulna. Bones: Diffusely decreased mineralization of the osseous structures limits bone detail. No acute displaced fracture. No aggressive osseous lesion. Joints: Multifocal degenerative changes, most only severe of the left first carpometacarpal joint. Soft tissues: The soft tissues appear unremarkable. IMPRESSION: 1. No acute displaced fracture. 2. 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 3. Given the osseous demineralization, if symptoms persist, recommend follow-up routine radiographs in 10-14 days, after removal of the left wrist watch. Signed by: Dr. Charly Washington D.O., M.M.M. on 03/21/2019 7:42 PM
--- NOTE | 2019-03-21 19:47 | Diagnostic Imaging Report ---
RIGHT KNEE - 4 Images HISTORY: Fall, injury, pain COMPARISON: None available. FINDINGS: Bones: Diffusely decreased mineralization of the osseous structures limits bone detail. No acute displaced fracture. Joints: Osseous alignment is within normal limits and the joint spaces are well-maintained. Soft tissues: Diffuse scattered atherosclerotic vascular calcifications. Multiple medial soft tissue metallic surgical clips. IMPRESSION: No acute radiographic abnormality. Signed by: Dr. Charly Washington D.O., M.M.M. on 03/21/2019 7:44 PM
--- NOTE | 2019-03-21 19:53 | Diagnostic Imaging Report ---
LEFT FOOT - 2 Images HISTORY: Fall, injury COMPARISON: None available. FINDINGS: Evaluation is limited given the absence of an oblique view. Bones: Diffusely decreased mineralization of the osseous structures limits bone detail. Questionable oblique lucency at the proximal metaphysis the fourth metatarsal bone. No aggressive osseous lesion. Joints: Severe arthropathy of the first metatarsophalangeal joint and fourth distal interphalangeal joint. Positioning limits evaluation of the fourth distal interphalangeal joint. Soft tissues: Nonspecific soft tissue swelling of the fourth digit. IMPRESSION: 1. Questionable nondisplaced fracture involving the proximal metaphysis of the fourth metatarsal bone, correlate for focal point tenderness. 2. 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 3. Severe arthropathy of the fourth distal interphalangeal joint with adjacent soft tissue swelling, if the acute trauma was not in this region, consider osteoarthrosis or possibly gout in the appropriate setting. Signed by: Dr. Charly Washington D.O., M.M.M. on 03/21/2019 7:50 PM
[2019-07-25] MEDS ORDERED: FLOMAX0.4 MG PO (09:12)
[2019-07-25] MEDS ORDERED: LEVEMIR100 UNIT/1 SQ (09:12)
[2019-07-25] MEDS ORDERED: SIMVASTATIN40 MG PO (09:12)
[2019-07-25] MEDS ORDERED: JANUVIA50 MG PO (09:12)
== END 2019-03-21 20:05 | disposition home or self-care (01) ==
LOC: FSED 15:54
DX: S60.222A Contusion of left hand, initial encounter (principal); S60.221A Contusion of right hand, initial encounter; S70.01XA Contusion of right hip, initial encounter; S80.01XA Contusion of right knee, initial encounter; S90.32XA Contusion of left foot, initial encounter; W01.0XXA Fall on same level from slipping, tripping and stumbling without subsequent striking against object, initial encounter; Y99.0 Civilian activity done for income or pay
CPT/HCPCS: 72192; 99283